=== PATIENT | male | born 1940 | race Caucasian/White ===

== ENCOUNTER 2016-11-03 07:27 | Inpatient (IN) | payer OTHER ==
--- NOTE | 2016-11-03 07:34 | EDPHY ---
H & P Time Seen by Provider: 11/03/16 07:31 HPI/ROS: Chief complaint. possible CVA HPI. 75-year-old male here by EMS with slurred speech and difficulty walking. Last seen normal at 11:00 p.m. which is about 8 and 0.5 hours prior to arrival. Patient was normal last night and awoke with difficulty speaking and difficulty walking secondary to both leg weakness and he says would not support his weight. He denies headache or visual change. No chest discomfort or trouble breathing. No recent fever or illness. No urinary symptoms. Chronic abdominal pain that is stable and has been present for more than 1 year. Patient is weak in both arms and legs as well as speech difficulty. ROS Constitutional. no fever/chills, no weakness Eyes. no problems with vision ENT. no sore throat, no nasal drainage Cardiovascular. no chest pain Respiratory. no shortness of breath, no cough Abdominal. no abdominal pain, no nausea/vomiting, no diarrhea . no problems urinating MS. no calf pain/swelling, no neck/back pain, no joint pain Skin. no rash Lymph. no swollen glands Neuro. No headache. Slurred speech. Unable to stand or walk secondary to both leg weakness Past Medical/Surgical History: Past medical history is significant for insulin-dependent diabetes, IBS, small- bowel obstruction, chronic spine problems, hypertension, depression, CPAP at night, heart stents, coronary artery disease, [place] Social History: , nonsmoker, no alcohol Smoking Status: Never smoked Physical Exam: General Appearance: Alert well-developed male moderate distress vital signs are stable Eyes: Pupils equal and round no pallor or injection. ENT, Mouth: Mucous membranes are moist. Respiratory: There are no retractions, lungs are clear to auscultation. Cardiovascular: Regular rate and rhythm. Gastrointestinal: Abdomen is soft and nontender, no masses, bowel sounds normal. Neurological: Awake and alert, sensory and motor exams grossly normal. Speech is somewhat garbled. Cranial nerves however appear to be normal without evidence of facial droop. There is no pronator drift. [id number] is ataxic and abnormal with both index fingers. [id number]-ej-[id number] and raising feet off the bed is abnormal with both legs. Skin: Warm and dry, no rashes. Musculoskeletal: Neck is supple nontender. Extremities symmetrical, full range of motion. Psychiatric: Patient is oriented X 3, there is no agitation. Constitutional: Initial Vital Signs Temperature (C) 35.8 C L 11/03/16 07:38 Heart Rate 76 11/03/16 07:38 Respiratory Rate 14 11/03/16 07:38 Blood Pressure 114/74 11/03/16 07:38 O2 Sat (%) 90 L 11/03/16 07:38 O2 Delivery Mode Room Air O2 (L/minute) 2 Allergies/Adverse Reactions: No Known Allergies Allergy (Verified 11/03/16 07:42) Home Medications: Medication Instructions Recorded Aspirin [Aspirin 81mg (*)] 81 mg PO DAILY 09/20/15 Carvedilol [Coreg (*)] 12.5 mg PO BID 09/20/15 Empagliflozin [Jardiance] 25 mg PO DAILY 09/20/15 FLUoxetine [Prozac 20 MG (*)] 60 mg PO DAILY 09/20/15 Lisinopril [Zestril 2.5 mg (*)] 2.5 mg PO DAILY 09/20/15 Multivitamins [Multivitamin (*)] 1 each PO DAILY 09/20/15 [place]-3 Fatty Acids [Fish Oil 1000 1,000 mg PO DAILY 09/20/15 mg (*)] Rosuvastatin Calcium [Crestor 40mg 40 mg PO HS 09/20/15 (*)] Zolpidem Tartrate [Ambien 5MG (*)] 10 mg PO HS 09/20/15 Lactobacil 2-S.thermo-Bifido 1 1 each PO DAILY #30 packet 09/25/15 [VSL#3 DS PACKET] buPROPion SR [Wellbutrin 100mg SR 100 mg PO DAILY 01/25/16 (*)] Ibuprofen [Motrin (*)] 600 mg PO Q6HRS PRN #0 tab 01/27/16 Insulin Glargine [Lantus 100 60 units SC DAILY #0 ml 01/27/16 UNITS/ML (*)] Pantoprazole Sodium [Protonix 40mg 40 mg PO DAILY #30 tab 01/27/16 (*)] Promethazine HCl [Phenergan 25mg 25 mg PO Q6 PRN #30 tab 01/27/16 (*)] Crestor 11/03/16 HYOSCYAMINE SULFATE 11/03/16 Neurontin 11/03/16 [place] 5/325 (*) 11/03/16 Reglan 11/03/16 Medical Decision Making - Diagnostics EKG Interpretation: EKG interpreted by me shows normal sinus rhythm with normal interval. There is left axis deviation. QRS is otherwise normal there is no significant ST elevation or depression. There is no arrhythmia. The rate is 76 Imaging Results: Noncontrast head CT reviewed by me and discussed with Dr. Valderrama shows some atrophy but no evidence for hemorrhage One-view chest x-ray interpreted by me shows no evidence for pneumonia Procedures: IV normal saline, monitor. Aspirin given in the emergency department after normal head CT ED Course/Re-evaluation: I consulted and discussed the case with Dr. Mata at [facility] who recommends CT angiogram of head and neck. She agrees with no thrombolytics therapy I have consulted and discussed the case with Dr. Johnson, hospitalist, who agrees to the admission Re-evaluation at 8:45 a.m.. Patient's condition is unchanged. The patient, his , and I discussed imaging study and lab results and EKG findings so far. We discussed treatment plan including need for admission and further evaluation. They expressed understanding and agreement Differential Diagnosis: This is likely a CVA. There is no evidence for intracranial hemorrhage. He has a nonfocal exam. No evidence for sepsis. We will do CTA of head and neck looking for vertebral artery dissection or clot. - Data Points Laboratory Results: Laboratory Results 11/03/16 07:30 11/03/16 07:30 11/03/16 11/03/16 11/03/16 08:01 07:30 07:30 WBC RBC Hgb POC Hgb Hct POC Hct MCV MCH MCHC RDW Plt Count MPV Neut % (Auto) Lymph % (Auto) [place] % (Auto) Eos % (Auto) Baso % (Auto) Nucleat RBC Rel Count Absolute Neuts (auto) Absolute Lymphs (auto) Absolute Monos (auto) Absolute Eos (auto) Absolute Basos (auto) Absolute Nucleated RBC Immature Gran % Immature Gran # PT 14.1 SEC SEC (12.0-15.0) INR 1.10 (0.83-1.16) APTT 24.9 SEC SEC (23.0-38.0) VBG Lactic Acid 1.4 mmol/L mmol/L (0.7-2.1) POC Sodium Sodium 148 mEq/L H mEq/L (134-144) POC Potassium Potassium 3.9 mEq/L mEq/L (3.5-5.2) POC Chloride Chloride 107 mEq/L mEq/L (97-110) Carbon Dioxide 27 mEq/l mEq/l (22-31) Anion Gap 14 mEq/L mEq/L (8-16) POC BUN BUN 20 mg/dL mg/dL (7-23) Creatinine 1.5 mg/dL H mg/dL (0.7-1.3) POC Creatinine Estimated GFR 46 Glucose 116 mg/dL H mg/dL (70-100) POC Glucose Calcium 9.1 mg/dL mg/dL (8.5-10.4) Total Bilirubin 1.2 mg/dL mg/dL (0.1-1.4) Troponin I < 0.012 ng/mL ng/mL (0-0.034) NT-Pro-B Natriuret Pep 681 pg/mL H pg/mL (0-125) 11/03/16 11/03/16 07:30 07:25 WBC 10.23 10^3/uL H 10^3/uL (3.80-9.50) RBC 5.88 10^6/uL 10^6/uL (4.40-6.38) Hgb 17.8 g/dL H g/dL (13.7-17.5) POC Hgb 19.0 gm/dL H gm/dL (13.7-17.5) Hct 54.8 % H % (40.0-51.0) POC Hct 56 % H % (40-51) MCV 93.2 fL fL (81.5-99.8) MCH 30.3 pg pg (27.9-34.1) MCHC 32.5 g/dL g/dL (32.4-36.7) RDW 17.0 % H % (11.5-15.2) Plt Count 218 10^3/uL 10^3/uL (150-400) MPV 10.2 fL fL (8.7-11.7) Neut % (Auto) 73.9 % % (39.3-74.2) Lymph % (Auto) 13.8 % L % (15.0-45.0) [place] % (Auto) 9.4 % % (4.5-13.0) Eos % (Auto) 1.1 % % (0.6-7.6) Baso % (Auto) 0.7 % % (0.3-1.7) Nucleat RBC Rel Count 0.0 % % (0.0-0.2) Absolute Neuts (auto) 7.57 10^3/uL H 10^3/uL (1.70-6.50) Absolute Lymphs (auto) 1.41 10^3/uL 10^3/uL (1.00-3.00) Absolute Monos (auto) 0.96 10^3/uL H 10^3/uL (0.30-0.80) Absolute Eos (auto) 0.11 10^3/uL 10^3/uL (0.03-0.40) Absolute Basos (auto) 0.07 10^3/uL 10^3/uL (0.02-0.10) Absolute Nucleated RBC 0.00 10^3/uL 10^3/uL (0-0.01) Immature Gran % 1.1 % % (0.0-1.1) Immature Gran # 0.11 10^3/uL H 10^3/uL (0.00-0.10) PT INR APTT VBG Lactic Acid POC Sodium 146 mEq/L H mEq/L (134-144) Sodium POC Potassium 3.7 mEq/L mEq/L (3.3-5.0) Potassium POC Chloride 102 mEq/L mEq/L (97-110) Chloride Carbon Dioxide Anion Gap POC BUN 20 mg/dL mg/dL (7-23) BUN Creatinine POC Creatinine 1.7 mg/dL H mg/dL (0.7-1.3) Estimated GFR Glucose POC Glucose 118 mg/dL H mg/dL (70-100) Calcium Total Bilirubin Troponin I NT-Pro-B Natriuret Pep Medications Given: Discontinued Medications Aspirin (Aspirin) 324 mg PO EDNOW ONE Stop: 11/03/16 08:32 Last Admin: 11/03/16 08:40 Dose: 324 mg Point of Care Test Results: 11/03/16 07:25 POC Sodium 146 H POC Potassium 3.7 POC Chloride 102 POC BUN 20 POC Creatinine 1.7 H POC Glucose 118 H Departure - Departure Disposition: [facility] Inpatient Acute Clinical Impression: CVA (cerebral vascular accident) Qualifiers: CVA mechanism: unspecified Qualified Code(s): I63.9 - Cerebral infarction, unspecified Condition: Fair Referrals: Patient,NotPresent [Unknown] - As per Instructions
--- NOTE | 2016-11-03 07:39 | CPEKG ---
Heart Rate: 76 RR Interval: 789 P-R Interval: 176 QRSD Interval: 86 QT Interval: 420 QTC Interval: 473 P Trent[place]: 62 QRS [place]: 19 T Wave [place]: 69 EKG Severity - BORDERLINE ECG - EKG Impression: SINUS RHYTHM EKG Impression: BORDERLINE R WAVE PROGRESSION, ANTERIOR LEADS Electronically Signed By: Glenn Cook 03-Nov-2016 09:29:42
[2016-11-03 07:43] LABS: % IMMATURE GRANULYOCYTES 1.1 % (0.0-1.1); ABSOLUTE IMMATURE GRANULOCYTES 0.11 10^3/uL (0.00-0.10); ADD DIFF? NO; ADD MORPH? NO; ADD SCAN? NO; ATYPICAL LYMPHOCYTE FLAG 10 (0-99); FRAGMENT RBC FLAG 0 (0-99); HEMATOCRIT 54.8 % (40.0-51.0); HEMOGLOBIN 17.8 g/dL (13.7-17.5); LEFT SHIFT FLG 0 (0-99); LIPEMIA HEMOLYSIS FLAG 80 (0-99); MEAN CELL HEMOGLOBIN 30.3 pg (27.9-34.1); MEAN CELL HEMOGLOBIN CONCENTR. 32.5 g/dL (32.4-36.7); MEAN CELL VOLUME 93.2 fL (81.5-99.8); MEAN PLATELET VOLUME 10.2 fL (8.7-11.7); PLATELET CLUMPS FLAG 0 (0-99); PLATELET COUNT 218 10^3/uL (150-400); RED BLOOD CELL COUNT 5.88 10^6/uL (4.40-6.38)
[2016-11-03 07:48] LABS: INR 1.1 (0.83-1.16); PROTIME(PATIENT) 14.1 SEC (12.0-15.0)
[2016-11-03 07:49] LABS: APTT 24.9 SEC (23.0-38.0)
[2016-11-03 07:50] LABS: ANION GAP 14 mEq/L (8-16); BILIRUBIN,TOTAL 1.2 mg/dL (0.1-1.4); CALCIUM 9.1 mg/dL (8.5-10.4); CARBON DIOXIDE 27 mEq/l (22-31); CHLORIDE 107 mEq/L (97-110); CREATININE 1.5 mg/dL (0.7-1.3); GLOMERULAR FILTRATION RATE 46; GLUCOSE 116 mg/dL (70-100); POTASSIUM 3.9 mEq/L (3.5-5.2); SODIUM 148 mEq/L (134-144)
[2016-11-03 08:02] LABS: TROPONIN I < 0.012 ng/mL (0-0.034)
[2016-11-03] MEDS ORDERED: ASPIRIN 81 MG CHEWABLE TAB PO ONE (08:31)
[2016-11-03 09:05] LABS: COLOR YELLOW; LEUKOCYTE ESTERASE,URINE NEGATIVE (NEGATIVE); NITRITE,URINE NEGATIVE (NEGATIVE)
[2016-11-03 09:07] LABS: MUCUS TRACE /lpf (NONE-1+); RBC,URINE 50-182 /hpf (0-3)
[2016-11-03] MEDS ORDERED: IOPAMIDOL (ISOVUE 370) 100 ML BTL IV ONE (09:07)
[2016-11-03] MEDS ORDERED: HYDROCODONE/APAP 5/325 TAB PO PRN ×2 (09:49→10:27)
[2016-11-03] MEDS ORDERED: Empagliflozin [Jardiance] 25 MG PO SCH (10:30)
--- NOTE | 2016-11-03 10:31 | GCON ---
[f rep st] CONSULTATION NEUROLOGIC CONSULTATION REFERRING PHYSICIAN: Mary Kam NP HISTORY: The patient is a 75-year-old gentleman who I am asked to see in neurologic consultation re garding acute neurologic deficits of slurred speech and falling. History is obtained from the patie nt as well as review of the medical records and discussions with his . He said he went to bed a round 11 p.m. and awoke at 6 a.m. and got up and fell because his legs would not support him. He sp elida to his , and she said she got him the walker, but he tried to walk again and fell. She said she tested his arm strength and it seemed to be equal, and she did not notice any asymmetry to his facial movements. His speech has been slightly slurred. He came to the emergency department where he has been evaluated with a head CT that does not show anything specific. He subsequently had a co nsultation with [facility], and CT angiogram was obtained which does not show any large vess el stenoses and he is not felt to be a TPA candidate. Dr. Cook in the emergency department has b een following the patient and I have been asked to see him regarding clinical suspicion for ischemic stroke. He has had some documented ataxia of the right upper extremity. The patient says his spee ch is a little bit different and he is predominantly experiencing severe back pain right now and req uesting his pain medication which he is used to taking. 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 He normally does take a daily 81 mg of aspirin. The patient has a history of headache and nausea at times and depres kiran. Diabetes. Hypertension. Hyperlipidemia. FAMILY HISTORY: Noncontributory. SOCIAL HISTORY: No smoking. No alcohol. 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 His says he has not been very active. MEDICATIONS: Prior to admission, Bupropion, Ambien, Crestor, Phenergan, fish oil, Neurontin, [place], lisinopril, insulin, Prozac, Jardiance, Coreg, 81 mg of aspirin daily, although as mentioned was ho lding this in preparation for a spinal epidural next week. ALLERGIES: No known drug allergies. REVIEW OF SYSTEMS: 10-point review of systems completed and unremarkable. PHYSICAL EXAMINATION: VITAL SIGNS: Blood pressure 114/74, pulse of 76, respirations 14, temperatur e 35.8. GENERAL: He is well developed, no acute distress. EYES: Clear. NECK: Supple with no br uits or masses. CARDIAC: Regular rate and rhythm. No murmur. NEUROLOGIC: He is awake, but appea rs uncomfortable because he says his back is really hurting him in the low back region, but that is not a new problem. He is oriented and has a dysarthric speech, but it is fluent. Recent and remote memory are maintained. Concentration and attention are fairly well maintained given the circumstan lee, and he has a good general fund of knowledge. Pupils 2 mm and reactive. I cannot adequately vi ew the fundi. Visual joyner are full. Extraocular movements are intact, but some mild nystagmus on left and right lateral gaze. It is unsustained in the horizontal plane. Brief upward beating nyst agmus on up gaze. The right face has a mild weakness to it with a slight droop. Palate elevates sy mmetrically. Tongue protrudes midline. Hearing is preserved. Motor exam: Normal muscle bulk and tone, with essentially 5/5 strength, but some limitation in testing because of pain. There is a lit tle bit of ataxia in the right upper extremity on finger to nose. Sensation is preserved for temper ature and light touch. Reflexes 1+. DIAGNOSTIC STUDIES: As outlined above. LABORATORY STUDIES: Unremarkable CBC. The chemistry shows creatinine of 1.5. ProBNP of 681. Negat christiane troponin. Urinalysis: 50-180 red cells, 1-3 white cells. IMPRESSION: The patient is presenting with acute neurologic deficits upon awakening at 6 a.m. after going to bed at around 11 p.m., and has some mild right lower facial droop with dysarthria and atax ia in the right upper extremity. NIH stroke scale of 3. He is not a TPA candidate because of unkno wn onset of deficits. We do not find a large vessel source on the CT angiogram of the head and neck . He has multiple risk factors for small-vessel disease, and this seems as if it probably is a smal l vessel ischemic event either in the left basal ganglia region or in the right cerebellum. There a re not likely alternative diagnoses for this neurologic presentation. I believe we should obtain br ain MRI to make sure there is not a large area of ischemia in his posterior fossa because of risk of subsequent edema. This will help clarify if there is, in fact, stroke. We will put him back on as pirin and he already received aspirin in the emergency department. He will be admitted for ongoing rehabilitation and evaluation. For his back, he will go back on his oral [place] medication to try to control that since this is a chronic problem and clearly giving him distress. My partner will foll ow up tomorrow for further neurologic input. /[id number]/MODL
[2016-11-03] MEDS ORDERED: ONDANSETRON DISINTEGRATING 4 MG TAB PO PRN (11:44)
[2016-11-03] MEDS ORDERED: ACETAMINOPHEN 325 MG TAB PO PRN (11:44)
[2016-11-03] MEDS ORDERED: ONDANSETRON 4 MG/2 ML VIAL IVP PRN (11:44)
[2016-11-03] MEDS ORDERED: NS 1,000 ML IV SCH (11:45)
[2016-11-03] MEDS ORDERED: HYDROmorphONE/DILAUDID 1 MG/ML SYR IVP ONE (12:12)
--- NOTE | 2016-11-03 13:01 | GHP ---
[f rep st] HISTORY AND PHYSICAL DATE OF ADMISSION: 11/03/2016 CHIEF COMPLAINT: Some dysarthria with balance issues. HISTORY OF PRESENT ILLNESS: The patient is a 75-year-old gentleman with a history of ischemic cardiomyopathy, diabetes, hypertension, who presented to the emergency room with difficulty walking and slurred-type speech. His saw him last night at 10 p.m. At that time, his speech was fine and he was able to ambulate. He has chronic back problems and has difficulty with balance. He woke up this morning around 6 a.m. and felt his legs would not support him. He told his that he was concerned he had a stroke. She quickly looked at him and did not note any facial droop and was able to talk, but she did note that he was unable to stand. Subsequently, they called 911, and he was transferred into the emergency room. A consultation was obtained with [facility]. Their recommendation was to get a CT angiogram of the head and neck, which did not show any large vessel stenosis. Due to the timeframe, he was not a tPA candidate. Per the patient, his speech is a little bit different than his baseline. He commented that he has a saliva problem. On the 1st half of the day, his mouth is extremely dry. On the 2nd half of the day, he produces extra saliva. He denies any chest pain. He says that he is always short of breath secondary to his underlying DISH syndrome. He also has issues with constipation versus loose stools with an underlying diagnosis of irritable bowel syndrome. He has been recently going to the gym to do strengthening exercises for his balance issues. During my interview, his main complaint is low back pain. PAST MEDICAL HISTORY: 1. Episode of atypical chest pain thought to be pericarditis in December 2015. 2. Coronary artery disease, status post placement of LAD and diagonal in July 2014. 3. Ischemic cardiomyopathy. Ejection fraction 40% by echocardiogram in July 2014. 4. Diabetes mellitus. Recent A1c by his primary care provider was 6.1. 5. Obstructive sleep apnea on CPAP. 6. DISH syndrome. 7. Hypertension. 8. Depression and anxiety. 9. Irritable bowel syndrome. PAST SURGICAL HISTORY: 1. Appendectomy. 2. Cholecystectomy. 3. Hernia repair. 4. Coronary artery stenting in July 2014. 5. Bilateral quadriceps repair. FAMILY HISTORY: Reviewed and noncontributory. SOCIAL HISTORY: He has been to his for 53 years. 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 He has never smoked. He does not have alcohol use. He and his had 2 children. He lost a daughter 3 years ago to metastatic brain cancer. ALLERGIES: No known allergies. HOME MEDICATIONS: Lisinopril 10 mg daily, [place] 1 tab q.6 hours p.r.n., Levsin 0.125 mg p.o. q.6 hours p.r.n., Wellbutrin 300 mg daily, gabapentin 300 mg p.o. b.i.d., Jardiance 25 mg daily, Coreg 12.5 mg p.o. b.i.d., aspirin 325 mg daily, Lantus 45 units subcu daily, Prozac 60 mg daily, Ambien 10 mg p.o. q.h.s., Crestor 40 mg daily, Phenergan 25 mg p.o. q.6 hours p.r.n., fish oil 1000 mg daily, multivitamin 1 tab daily. REVIEW OF SYSTEMS: A 10-point review of system was performed, was negative except as noted in the HPI. PHYSICAL EXAM: GENERAL: The patient is a 75-year-old male who appears to be in fair health. VITAL SIGNS: Blood pressure is 143/82, heart rate is 73, respiratory rate is 18, O2 sats on 2 L are 94%, temperature is 36.8 Celsius. EYES: Pupils are equal and reactive. He is wearing glasses. EOMs are intact. No conjunctival injection noted. ENT: Normal ears. Hearing intact. Oral airway is dry. Tongue is dry. NECK: Trachea is midline. CARDIOVASCULAR: He is in a regular rate and rhythm. No murmurs, rubs, gallops noted. CHEST/LUNGS : Normal respiratory effort without wheezing, rales or rhonchi. ABDOMEN: Soft , nontender, round. SKIN: No rashes, ulcer. Warm, dry, intact. MUSCULOSKELETAL: He is able to get out of bed for me with some assist. He has a wide-standing gait. He has equal upper lower extremity strength. PSYCHIATRIC : He is alert and oriented. Normal mood, affect. Normal judgment and insight. Normal memory. NEUROLOGIC: He is oriented to person, place, and time and situation. He has dysarthric speech but is fluent. His tongue is midline. He has no pronator drift. His face is symmetrical. DATA REVIEWED: A CBC shows a white blood cell count of 10.3, hemoglobin 17.8, hematocrit of 15.4, platelet count of 218. Coags show a pro time of 14.1, INR of 1.1, PTT 24.9. Venous lactic acid is 1.4. Chemistry: Sodium is 148, potassium 3.9, BUN of 20, creatinine of 1.5, glucose of 116. BNP of 6.81. Troponin is less than 0.012. A urinalysis shows 50-182 red blood cells, he has 2+ protein and 3+ glucose in his urine. I reviewed his care with Dr. Glenn Cook, emergency room physician. I also reviewed his care with Dr. Freddie Kaba with Neurology. ASSESSMENT/PLAN: 1. Possible stroke with associated acute neurologic deficits vs a TIA. Will do a stroke workup. MRI is pending. Will check a lipid panel. He had a hemoglobin A1c recently done that was 6.1. Will have Speech Therapy, Physical Therapy and Occupational Therapy further evaluate him. Echocardiogram has been ordered. 2. Polycythemia. This could be due to his chronic oxygen use or dehydration. Will gently hydrate and recheck his labs in the morning. 3. Renal insufficiency. Will hold his JONATHAN inhibitor and hydrate overnight. Recheck labs in the morning. 4. 4.5 pulmonary nodule noted on the CT. He needs to get a CT followup in 6 months. 5. Chronic back pain. [place] has been resumed p.r.n. Morphine p.r.n. 6. History of coronary artery disease and ischemic cardiomyopathy. Echocardiogram will be performed. 7. Obstructive sleep apnea. To use his home CPAP if available, otherwise nocturnal oxygen will be provided. 8. Diabetes mellitus type 2. Glucoses are overall stable. He just had an A1c done. Will continue his Lantus and have glucoses checked before meals and at bedtime. 9. DVT prophylaxis. Will place SCDs. In addition, will order heparin t.i.d. because he is at a high risk. 10. Code status. Do not resuscitate. 11. Length of stay. He will likely require less than a 2-midnight stay. This can be further evaluated if needed. /[id number]/MODL MTDD
[2016-11-03] MEDS: GABAPENTIN 300 MG CAP PO SCH ×2 (13:25→22:01)
[2016-11-03] MEDS: buPROPion XL 150 MG TAB PO SCH (13:25)
[2016-11-03] MEDS: CARVEDILOL 25 MG TAB PO SCH ×2 (13:25→22:02)
[2016-11-03] MEDS: FLUoxetine 20 MG CAP PO SCH (13:25)
[2016-11-03] MEDS: LISINOPRIL 10 MG TAB PO SCH (13:25)
[2016-11-03] MEDS: INSULIN GLARGINE 100 UNITS/ML SYRINGE SC SCH (13:28)
[2016-11-03] MEDS: HEPARIN 5,000 UNIT/0.5 ML SYR SC SCH ×2 (14:41→22:05)
[2016-11-03] MEDS: HYDROCODONE/APAP 5/325 TAB PO PRN (17:38)
[2016-11-03] MEDS ORDERED: D50W 25 GM/50 ML SYR IVP PRN (19:41)
[2016-11-03] MEDS: ROSUVASTATIN CALCIUM 40 MG TAB PO SCH (22:01)
[2016-11-03] MEDS: ZOLPIDEM TARTRATE 5 MG TAB PO SCH (22:02)
[2016-11-04 05:12] LABS: % IMMATURE GRANULYOCYTES 0.5 % (0.0-1.1); ABSOLUTE IMMATURE GRANULOCYTES 0.06 10^3/uL (0.00-0.10); ADD DIFF? NO; ADD MORPH? NO; ADD SCAN? NO; ATYPICAL LYMPHOCYTE FLAG 0 (0-99); FRAGMENT RBC FLAG 0 (0-99); HEMATOCRIT 47.6 % (40.0-51.0); HEMOGLOBIN 15.8 g/dL (13.7-17.5); LEFT SHIFT FLG 0 (0-99); LIPEMIA HEMOLYSIS FLAG 80 (0-99); MEAN CELL HEMOGLOBIN 30.9 pg (27.9-34.1); MEAN CELL HEMOGLOBIN CONCENTR. 33.2 g/dL (32.4-36.7); MEAN CELL VOLUME 93.2 fL (81.5-99.8); MEAN PLATELET VOLUME 10.1 fL (8.7-11.7); PLATELET CLUMPS FLAG 10 (0-99); PLATELET COUNT 155 10^3/uL (150-400); RED BLOOD CELL COUNT 5.11 10^6/uL (4.40-6.38); RED CELL DISTRIBUTION WIDTH 16.5 % (11.5-15.2)
[2016-11-04 05:17] LABS: ANION GAP 9 mEq/L (8-16); CALCIUM 8.2 mg/dL (8.5-10.4); CARBON DIOXIDE 22 mEq/l (22-31); CHLORIDE 110 mEq/L (97-110); CHOLESTEROL 110 mg/dL (140-220); CHOLESTEROL/HDL RATIO 2.62 RATIO (1.00-4.97); CREATININE 1.1 mg/dL (0.7-1.3); GLOMERULAR FILTRATION RATE > 60; GLUCOSE 97 mg/dL (70-100); HIGH DENSITY LIPOPROTEIN 42 mg/dL (40-65); LDL/HDL RATIO 0.98 RATIO (1.00-3.64); LOW DENSITY LIPOPROTEIN 41 mg/dL (80-100); NON-HIGH DENSITY LIPOPROTEIN 68 mg/dL (90-129); POTASSIUM 3.7 mEq/L (3.5-5.2); SODIUM 141 mEq/L (134-144); TRIGLYCERIDE 136 mg/dL (40-150); VERY LOW DENSITY LIPOPROTEINS 27 mg/dL (8-25)
[2016-11-04] MEDS: HEPARIN 5,000 UNIT/0.5 ML SYR SC SCH ×3 (05:32→19:40)
--- NOTE | 2016-11-04 09:25 | HOSPPROG ---
Hospitalist Progress Note Assessment/Plan: #Slurred speech/facial droop: now resolved MRI unrevealing. Query if due to hypoglycemia. He reports several low sugars at home <60 in past few weeks. -cont ASA. Lipids at goal, no arrhythmia on EKG. BP at goal #Hypoglycemia: -A1c 6.1. Has had too many lows at home and this morning. Stop glargine, will calculate SSI needs #Chronic back pain: injection planned next week outpatient #Compensated CDM: BB, statin #CAD: BB, statin, ASA (will only take 81mg with upcoming spine injection}) #Deconditioning: PT recs #Constipation #HTN: BP controlled on home meds #SRINIVASA: CPAP #Anxiety/depression: home meds #Diabetic diet #DVT ppx: #Disp: warrants inpatient admission given weakness at risk for falls and subsequent injuries. PT/OT, awaiting SNF placement # Subjective: shakey this morning with low sugar Objective: Vital Signs Temp Pulse Resp BP Pulse Ox 36.7 C 75 16 132/72 H 92 11/04/16 07:56 11/04/16 07:56 11/04/16 07:56 11/04/16 07:56 11/04/16 07:56 Laboratory Results 11/04/16 04:44 11/04/16 04:44 11/03/16 11/04/16 11/05/16 05:59 05:59 05:59 Intake Total 240 Balance 240 PT 14.1 SEC (12.0-15.0) 11/03/16 07:30 INR 1.10 (0.83-1.16) 11/03/16 07:30 - Physical Exam Constitutional: other (anxious) Eyes: PERRL Ears, Nose, Mouth, Throat: moist mucous membranes Cardiovascular: regular rate and rhythym, no murmur, rub, or gallop Respiratory: no respiratory distress, no rales or rhonchi Gastrointestinal: normoactive bowel sounds, soft, non-tender abdomen Genitourinary: no bladder fullness Skin: warm Musculoskeletal: generalized weakness, other (ambulates with walker) Neurologic: AAOx3, CN II-XII Intact Psychiatric: interacting appropriately, anxious ICD10 Worksheet Patient Problems: Problems Problem Status Onset CVA (cerebral vascular accident) Acute Chest pain Acute STEMI (ST elevation myocardial infarction) Acute Shortness of breath Acute
[2016-11-04] MEDS: INSULIN LISPRO 100 UNIT/ML SC SCH ×3 (09:29→17:20)
[2016-11-04] MEDS: OMEGA-3 FATTY ACIDS 1,000 MG CAP PO SCH (09:37)
[2016-11-04] MEDS: buPROPion XL 150 MG TAB PO SCH (09:37)
[2016-11-04] MEDS: ASPIRIN 325 MG TAB PO SCH (09:38)
[2016-11-04] MEDS: GABAPENTIN 300 MG CAP PO SCH ×2 (09:38→19:39)
[2016-11-04] MEDS: FLUoxetine 20 MG CAP PO SCH (09:38)
[2016-11-04] MEDS: MULTIVITAMINS 1 EACH TAB PO SCH (09:39)
[2016-11-04] MEDS: CARVEDILOL 25 MG TAB PO SCH ×2 (09:40→19:39)
[2016-11-04] MEDS: Empagliflozin [Jardiance] 25 MG PO SCH (09:50)
--- NOTE | 2016-11-04 09:59 | ECHO ---
[id number] + + [address] : : [place] [address] : : [phone] + + Adult Echocardiographic Report + ---+ :Name: TD SIMMONS WStudy Date: 11/04/2016 08:59 AM : : Hospital Admission Number: [id number] Location: 361: :: 1940 Gender: Male Height: 70 in : :Age: 75 yrs Race: WH Weight: 196 lb : :Reason For Study: Concern for stroke : : BSA: 2.1 meters2 : + ---+ MMode/2D Measurements \T\ Calculations IVSd: 0.90 cm LVIDd: 5.2 cm EDV(Teich): Ao root diam: LVPWd: 1.0 cm 128.6 ml 4.1 cm LA dimension: 3.9 cm LVLd ap4: 9.2 cm SV(MOD-sp4): EDV(MOD-sp4): 56.0 ml 76.0 ml LVLs ap4: 7.3 cm ESV(MOD-sp4): 20.0 ml EF(MOD-sp4): 73.7 % Normal Measurement Values: + + :LVIDd (3.5-5.7cm) IVSd (0.6-1.1cm) LVPWd (0.6-1.1cm) Aortic Root (2.0-3.7cm)Left Atrium (1.5-4.0cm): :LV Vol(d) (76-115ml) LV Vol(s) (29-48ml) Ejec Fraction (50-65%)PV Adonay (0.6- 1.2m/s) TV Adonay (0.4-1.0m/s) : :MV E Adonay (0.8-1.0m/s)MV A [place]onay (0.3-1.0m/s)LVOT Adonay (0.7-1.2m/s) Asc Ao Adonay ( 0.9-1.8m/s) : + + Doppler Measurements \T\ Calculations MV E max adonay: 55.8 cm/sec Ao V2 max: 101.8 cm/sec MV A max adonay: 73.5 cm/sec Ao max P.1 mmHg MV E/A: 0.76 Left Ventricle The left ventricle is normal in size. There is mild concentric left ventricular hypertrophy. Left ventricular systolic function is normal. Ejection Fraction = 60-65%. No regional wall motion abnormalities noted. Right Ventricle The right ventricle is normal in size and function. Atria The left atrial size is normal. Right atrium not well visualized. The interatrial septum is intact with no evidence for an atrial septal defect. Mitral Valve Thickened mitral leaflets with redundant chordae. There is no evidence of mitral valve prolapse. There is no mitral valve stenosis. There is trace mitral regurgitation. Tricuspid Valve Normal tricuspid valve. There is trace tricuspid regurgitation. Aortic Valve The aortic valve opens well. Mildly sclerotic AV. There is no aortic stenosis. Trace aortic regurgitation. Pulmonic Valve The pulmonic valve is not well visualized. There is no pulmonic valvular regurgitation. Great Vessels The aortic root is normal size. Pericardium/Pleural Trivial anterior pericardial effusion. Conclusion A complete two-dimensional transthoracic echocardiogram was performed (2D, M-mode, Doppler and color flow Doppler). The study was technically difficult. There is no obvious source of embolus identified. If one is highly clinically suspected, then transesophageal echocardiography should be considered. Left ventricular systolic function is normal. There is mild concentric left ventricular hypertrophy. Ejection Fraction = 60-65%. Thickened mitral leaflets with redundant chordae. There is trace mitral regurgitation. There is trace tricuspid regurgitation. Mildly sclerotic AV. Trace aortic regurgitation. Trivial anterior pericardial effusion Final Reading Physician: Jett Davenport signed on 11/04/2016 09:58 AM Ordering Physician: Mary Kam Performed By: Shandra Rodriguez, FLAKITO
--- NOTE | 2016-11-04 10:12 | NEUROPROG ---
Assessment: 1. Generalized weakness 2. Diabetes 35 total minutes floor time; over 50% counseling regarding the patient's medical history, imaging and interviewing the patient again. Essentially, he woke up around 6:00 a.m. 2 days ago feeling a generalized sense of weakness and shakiness. Interestingly, he had similar symptoms early this morning and a stat blood sugar was drawn. it Was 66. In addition, he took his narcotic pain medicine the night before. Overall, my impression is that he has had some symptoms of metabolic/toxic encephalopathy. I am reassured by his negative MRI in regards to acute stroke. Angiography of the head and neck also was unremarkable. Recommendations: 1. He will likely need inpatient rehabilitation 2. He can decrease his dose of aspirin to 81 mg daily in anticipation of a epidural steroid injection, after this procedure, he can go back to 325 mg daily of aspirin once the pain physician gives clearance 3. Outpatient follow-up with Endocrinology to review his blood sugars 4. I have advised him to consider discontinuing opiate pain medication is that may have exacerbated the symptoms. 5. Outpatient follow-up with Dr. Kaba in 4-6 weeks No further recommendations. We will continue to follow him as needed. Please do not hesitate to call for any changes in his neurologic status. Objective: Vital Signs Temp Pulse Resp BP Pulse Ox 36.7 C 80 16 132/72 H 92 11/04/16 07:56 11/04/16 09:40 11/04/16 07:56 11/04/16 09:40 11/04/16 07:56 Laboratory Results 11/04/16 04:44 11/04/16 04:44 11/03/16 11/04/16 11/05/16 05:59 05:59 05:59 Intake Total 240 Balance 240 PT 14.1 SEC (12.0-15.0) 11/03/16 07:30 INR 1.10 (0.83-1.16) 11/03/16 07:30 Allergies/Adverse Reactions: No Known Allergies Allergy (Verified 11/03/16 07:42)
[2016-11-04] MEDS: INSULIN GLARGINE 100 UNITS/ML SYRINGE SC SCH (10:30)
[2016-11-04 10:55] LABS: HEMOGLOBIN A1C 6.1 % (4.0-6.0)
[2016-11-04] MEDS ORDERED: D10W 250 ML PRN HYPOGLYCEMIA IV (12:00)
[2016-11-04] MEDS ORDERED: POLYETHYLENE GLYCOL 3350 17 GM PKT PO PRN (12:07)
[2016-11-04] MEDS ORDERED: BISACODYL 10 MG SUPP PR PRN (12:07)
[2016-11-04] MEDS ORDERED: LACTULOSE 20 GM/30 ML UDCUP PO PRN (12:07)
[2016-11-04] MEDS: MAGNESIUM HYDROXIDE 30 ML UDCUP PO PRN (13:40)
[2016-11-04] MEDS: SENNOSIDES/DOCUSATE SODIUM TAB PO SCH (19:38)
[2016-11-04] MEDS: ROSUVASTATIN CALCIUM 40 MG TAB PO SCH (19:39)
[2016-11-04] MEDS: ZOLPIDEM TARTRATE 5 MG TAB PO SCH ×2 (19:40→21:59)
[2016-11-05] MEDS: HYDROCODONE/APAP 5/325 TAB PO PRN ×5 (02:11→21:16)
[2016-11-05 05:27] LABS: HEMATOCRIT 48.2 % (40.0-51.0); HEMOGLOBIN 15.7 g/dL (13.7-17.5); MEAN CELL HEMOGLOBIN 30.5 pg (27.9-34.1); MEAN CELL HEMOGLOBIN CONCENTR. 32.6 g/dL (32.4-36.7); MEAN CELL VOLUME 93.8 fL (81.5-99.8); RED BLOOD CELL COUNT 5.14 10^6/uL (4.40-6.38); RED CELL DISTRIBUTION WIDTH 16.2 % (11.5-15.2)
[2016-11-05] MEDS: buPROPion XL 150 MG TAB PO SCH (08:42)
[2016-11-05] MEDS: GABAPENTIN 300 MG CAP PO SCH ×2 (08:43→20:01)
[2016-11-05] MEDS: OMEGA-3 FATTY ACIDS 1,000 MG CAP PO SCH (08:43)
[2016-11-05] MEDS: FLUoxetine 20 MG CAP PO SCH (08:43)
[2016-11-05] MEDS: MULTIVITAMINS 1 EACH TAB PO SCH (08:43)
[2016-11-05] MEDS: ASPIRIN 325 MG TAB PO SCH (08:43)
[2016-11-05] MEDS: CARVEDILOL 25 MG TAB PO SCH ×2 (08:44→20:04)
[2016-11-05] MEDS: HEPARIN 5,000 UNIT/0.5 ML SYR SC SCH ×2 (08:49→14:39)
[2016-11-05] MEDS: Empagliflozin [Jardiance] 25 MG PO SCH (09:38)
[2016-11-05] MEDS: INSULIN LISPRO 100 UNIT/ML SC SCH ×3 (09:39→17:51)
[2016-11-05] MEDS: SENNOSIDES/DOCUSATE SODIUM TAB PO SCH ×2 (09:39→21:14)
--- NOTE | 2016-11-05 15:03 | HOSPPROG ---
Hospitalist Progress Note Assessment/Plan: #Slurred speech/facial droop: now resolved MRI unrevealing. Query if due to hypoglycemia. He reports several low sugars at home <60 in past few weeks. -cont ASA. Lipids at goal, no arrhythmia on EKG. BP at goal -pt refusing ASA for steroid injection this week, rec 325mg after #Hypoglycemia: -A1c 6.1. Has had too many lows at home and this morning. Stop glargine, will calculate SSI needs #Chronic back pain: injection planned next week outpatient #Compensated CDM: BB, statin #CAD: BB, statin, ASA (will only take 81mg with upcoming spine injection}) #Deconditioning: PT recs #Constipation #HTN: BP controlled on home meds #SRINIVASA: CPAP #Anxiety/depression: home meds #Diabetic diet #DVT ppx: SCDs, refusing lovenox #Disp: Plan to DC tomorrow # Subjective: had BM, "feel unsteady" Objective: Vital Signs Temp Pulse Resp BP Pulse Ox 36.7 C 64 18 119/70 90 L 11/05/16 11:54 11/05/16 11:54 11/05/16 11:54 11/05/16 11:54 11/05/16 11:54 Laboratory Results 11/05/16 04:47 11/04/16 11/05/16 11/06/16 05:59 05:59 05:59 Intake Total 500 400 Balance 500 400 PT 14.1 SEC (12.0-15.0) 11/03/16 07:30 INR 1.10 (0.83-1.16) 11/03/16 07:30 - Physical Exam Constitutional: no apparent distress Eyes: PERRL Ears, Nose, Mouth, Throat: moist mucous membranes Cardiovascular: regular rate and rhythym, no murmur, rub, or gallop Respiratory: no respiratory distress Gastrointestinal: normoactive bowel sounds, soft, non-tender abdomen Genitourinary: no bladder fullness Skin: warm Musculoskeletal: other (using walker, mildy unstable) Neurologic: AAOx3, CN II-XII Intact Psychiatric: anxious ICD10 Worksheet Patient Problems: Problems Problem Status Onset CVA (cerebral vascular accident) Acute Chest pain Acute STEMI (ST elevation myocardial infarction) Acute Shortness of breath Acute
[2016-11-05] MEDS: ROSUVASTATIN CALCIUM 40 MG TAB PO SCH (20:01)
[2016-11-05] MEDS: HYOSCYAMINE SULFATE 0.125 MG TAB PO PRN (21:30)
[2016-11-05] MEDS: ZOLPIDEM TARTRATE 5 MG TAB PO SCH (21:44)
[2016-11-06 06:16] LABS: ANION GAP 9 mEq/L (8-16); CALCIUM 8.9 mg/dL (8.5-10.4); CARBON DIOXIDE 26 mEq/l (22-31); CHLORIDE 109 mEq/L (97-110); CREATININE 1.1 mg/dL (0.7-1.3); GLOMERULAR FILTRATION RATE > 60; GLUCOSE 80 mg/dL (70-100); POTASSIUM 4.5 mEq/L (3.5-5.2); SODIUM 144 mEq/L (134-144)
[2016-11-06] MEDS: HYDROCODONE/APAP 5/325 TAB PO PRN ×4 (06:34→22:52)
[2016-11-06] MEDS: buPROPion XL 150 MG TAB PO SCH (08:43)
[2016-11-06] MEDS: MULTIVITAMINS 1 EACH TAB PO SCH (08:44)
[2016-11-06] MEDS: FLUoxetine 20 MG CAP PO SCH (08:44)
[2016-11-06] MEDS: GABAPENTIN 300 MG CAP PO SCH ×2 (08:44→20:16)
[2016-11-06] MEDS: Empagliflozin [Jardiance] 25 MG PO SCH (08:45)
[2016-11-06] MEDS: CARVEDILOL 25 MG TAB PO SCH ×2 (08:46→20:15)
[2016-11-06] MEDS: INSULIN LISPRO 100 UNIT/ML SC SCH ×3 (08:47→18:33)
[2016-11-06] MEDS: SENNOSIDES/DOCUSATE SODIUM TAB PO SCH ×2 (08:48→20:17)
--- NOTE | 2016-11-06 09:54 | HOSPPROG ---
Hospitalist Progress Note Assessment/Plan: #Slurred speech/facial droop: now resolved MRI unrevealing. Query if due to hypoglycemia. He reports several low sugars at home <60 in past few weeks. -cont ASA. Lipids at goal, no arrhythmia on EKG. BP at goal -pt refusing ASA for steroid injection this week, rec 325mg after #Tachycardia: pain may contribute. Stat EKG NSR. Trial small fluid bolus. No increase in oxygen, SCDs in place. #Hypoglycemia: resolved. Stopped glargine. Resume only Jardiance -A1c 6.1. #Chronic back pain: injection planned next week outpatient #Compensated CDM: BB, statin #CAD: BB, statin, ASA (will only take 81mg with upcoming spine injection) #Deconditioning: PT recs #Constipation: resolved #HTN: resume Lisinopril #SRINIVASA: CPAP #Anxiety/depression: home meds #Diabetic diet #DVT ppx: SCDs, refusing lovenox #Disp: DC to SNF tomorrow # Subjective: no CP or SOB. [place] nauseated this morning Objective: Vital Signs Temp Pulse Resp BP Pulse Ox 36.6 C 61 14 159/78 H 90 L 11/06/16 07:40 11/06/16 07:40 11/06/16 07:40 11/06/16 07:40 11/06/16 07:40 Laboratory Results 11/05/16 04:47 11/06/16 05:32 11/05/16 11/06/16 11/07/16 05:59 05:59 05:59 Intake Total 500 700 Balance 500 700 PT 14.1 SEC (12.0-15.0) 11/03/16 07:30 INR 1.10 (0.83-1.16) 11/03/16 07:30 - Physical Exam Constitutional: no apparent distress Eyes: PERRL Ears, Nose, Mouth, Throat: moist mucous membranes, hearing normal Cardiovascular: regular rate and rhythym Respiratory: no respiratory distress, no rales or rhonchi Gastrointestinal: normoactive bowel sounds, soft, non-tender abdomen Genitourinary: no bladder fullness Skin: warm Musculoskeletal: full muscle strength Neurologic: AAOx3, CN II-XII Intact Psychiatric: not anxious ICD10 Worksheet Patient Problems: Problems Problem Status Onset CVA (cerebral vascular accident) Acute Chest pain Acute STEMI (ST elevation myocardial infarction) Acute Shortness of breath Acute
[2016-11-06] MEDS: OMEGA-3 FATTY ACIDS 1,000 MG CAP PO SCH (10:26)
[2016-11-06] MEDS ORDERED: NS 500 ML IV ONE (12:15)
--- NOTE | 2016-11-06 12:22 | CPEKG ---
Heart Rate: 70 RR Interval: 857 P-R Interval: 180 QRSD Interval: 94 QT Interval: 444 QTC Interval: 480 P [place]: 43 QRS [place]: -18 T Wave [place]: 41 EKG Severity - BORDERLINE ECG - EKG Impression: SINUS RHYTHM EKG Impression: BORDERLINE LEFT AXIS DEVIATION EKG Impression: POOR R WAVE PROGRESSION EKG Impression: BORDERLINE PROLONGED QT INTERVAL EKG Impression: No significant change from November 03, 2016 EKG Impression: Some artifact Electronically Signed By: Glenn Booth 06-Nov-2016 17:07:37
[2016-11-06] MEDS ORDERED: LISINOPRIL 10 MG TAB ONE (14:37)
[2016-11-06] MEDS: LISINOPRIL 10 MG TAB PO SCH ×4 (14:40→14:57)
[2016-11-06] MEDS: HYOSCYAMINE SULFATE 0.125 MG TAB PO PRN ×2 (16:10→21:54)
[2016-11-06] MEDS: ROSUVASTATIN CALCIUM 40 MG TAB PO SCH (20:17)
[2016-11-06] MEDS: ZOLPIDEM TARTRATE 5 MG TAB PO SCH (21:53)
[2016-11-07] MEDS: HYOSCYAMINE SULFATE 0.125 MG TAB PO PRN (05:16)
[2016-11-07 07:39] VITALS: BP 159/82; PULSE 74; RESP 15; TEMP 98.2; O2SAT 90
[2016-11-07] MEDS: INSULIN LISPRO 100 UNIT/ML SC SCH (07:54)
[2016-11-07] MEDS: buPROPion XL 150 MG TAB PO SCH (08:04)
[2016-11-07] MEDS: HYDROCODONE/APAP 5/325 TAB PO PRN (08:04)
[2016-11-07] MEDS: MULTIVITAMINS 1 EACH TAB PO SCH (08:05)
[2016-11-07] MEDS: OMEGA-3 FATTY ACIDS 1,000 MG CAP PO SCH (08:05)
[2016-11-07] MEDS: FLUoxetine 20 MG CAP PO SCH (08:05)
[2016-11-07] MEDS: CARVEDILOL 25 MG TAB PO SCH (08:05)
[2016-11-07] MEDS: GABAPENTIN 300 MG CAP PO SCH (08:05)
[2016-11-07] MEDS: LISINOPRIL 10 MG TAB PO SCH (08:05)
[2016-11-07] MEDS: Empagliflozin [Jardiance] 25 MG PO SCH (08:06)
[2016-11-07] MEDS: SENNOSIDES/DOCUSATE SODIUM TAB PO SCH (08:06)
[2016-11-07] MEDS: MAGNESIUM HYDROXIDE 30 ML UDCUP PO PRN (10:13)
--- NOTE | 2016-11-07 11:29 | PDIAF ---
- Diagnosis Diagnosis: weakmess Code Status: Do Not Resuscitate - Medication Management Discharge Medications: Medications to Continue on Transfer Carvedilol [Coreg (*)] 12.5 mg PO BID 09/20/15 [Last Taken 11/02/16 21:00] Empagliflozin [Jardiance] 25 mg PO DAILY 09/20/15 [Last Taken 11/02/16] FLUoxetine [Prozac 20 MG (*)] 60 mg PO DAILY 09/20/15 [Last Taken 11/02/16] Multivitamins [Multivitamin (*)] 1 each PO DAILY 09/20/15 [Last Taken 11/02/16] [place]-3 Fatty Acids [Fish Oil 1000 mg (*)] 1,000 mg PO DAILY 09/20/15 [Last Taken 11/02/16] Rosuvastatin Calcium [Crestor 40mg (*)] 40 mg PO HS 09/20/15 [Last Taken ] Zolpidem Tartrate [Ambien 5MG (*)] 10 mg PO HS 09/20/15 [Last Taken 11/02/16] Promethazine HCl [Phenergan 25mg (*)] 25 mg PO Q6 PRN #30 tab 01/27/16 [Last Taken Unknown] Aspirin [Aspirin 325 mg (*)] 325 mg PO DAILY 11/03/16 [Last Taken 11/02/16] Gabapentin 300 mg PO BID 11/03/16 [Last Taken 11/02/16] Hydrocodone/Acetaminophen [[place] 5/325 (*)] 1 tab PO Q6H PRN 11/03/16 [Last Taken 11/02/16] Hyoscyamine Sulfate [Levsin, Hyomax-Sl 0.125 mg (*)] 0.125 mg PO Q6 PRN [Last Taken Unknown] Lisinopril 10 mg PO DAILY 11/03/16 [Last Taken 11/02/16] buPROPion XL [Wellbutrin 150mg XL] 300 mg PO DAILY 11/03/16 [Last Taken 11/02/16 ] Discharge Medications: Refer to the Discharge Home Medication list for PRN reason. - Orders Services needed: Registered Nurse, Certified Project Leader, Master Director Of Maintenance , Physical Therapy, Occupational Therapy Diet Recommendation: ADA 2000 consistent carb Diet Texture: Regular Texture Diet, Thin Liquids, Meds Whole w/Liquids - Follow Up Care Current Providers and Referrals: Patient,NotPresent [Unknown] - As per Instructions
--- NOTE | 2016-11-07 11:37 | HOSPPROG ---
Hospitalist Progress Note Assessment/Plan: #Slurred speech/facial droop: now resolved MRI unrevealing. Query if due to hypoglycemia. He reports several low sugars at home <60 in past few weeks. -cont ASA. Lipids at goal, no arrhythmia on EKG. BP at goal -pt refusing ASA for steroid injection this week, rec 325mg after #Tachycardia: pain may contribute. Stat EKG NSR. Trial small fluid bolus. No increase in oxygen, SCDs in place. #Hypoglycemia: resolved. Stopped glargine. Resume only Jardiance -A1c 6.1. #Chronic back pain: injection planned next week outpatient #Compensated CDM: BB, statin #CAD: BB, statin, ASA (will only take 81mg with upcoming spine injection) #Deconditioning: PT recs #Constipation: resolved #HTN: resume Lisinopril #SRINIVASA: CPAP #Anxiety/depression: home meds #Diabetic diet #DVT ppx: SCDs, refusing lovenox #Disp: [facility] # Subjective: no CP or SOB. Consitpated, but passing flatus Objective: Vital Signs Temp Pulse Resp BP Pulse Ox 36.8 C 74 15 159/82 H 90 L 11/07/16 07:37 11/07/16 07:37 11/07/16 07:37 11/07/16 07:37 11/07/16 07:37 Laboratory Results 11/05/16 04:47 11/06/16 05:32 11/06/16 11/07/16 11/08/16 05:59 05:59 05:59 Intake Total 700 850 Balance 700 850 PT 14.1 SEC (12.0-15.0) 11/03/16 07:30 INR 1.10 (0.83-1.16) 11/03/16 07:30 - Physical Exam Constitutional: no apparent distress Eyes: PERRL Ears, Nose, Mouth, Throat: moist mucous membranes Cardiovascular: regular rate and rhythym, no murmur, rub, or gallop Respiratory: no respiratory distress, no rales or rhonchi Gastrointestinal: normoactive bowel sounds, soft, non-tender abdomen, no palpable masses Skin: warm Musculoskeletal: generalized weakness Neurologic: AAOx3, CN II-XII Intact Psychiatric: anxious ICD10 Worksheet Patient Problems: Problems Problem Status Onset STEMI (ST elevation myocardial infarction) Acute Chest pain Acute Shortness of breath Acute CVA (cerebral vascular accident) Acute
--- NOTE | 2016-11-07 19:28 | GDS ---
[f rep st] DISCHARGE SUMMARY DISCHARGE DIAGNOSES: 1. Slurred speech/generalized weakness 2. Tachycardia. 3. Hypoglycemia. 4. Diabetes. 5. Chronic back pain. 6. Compensated cardiomyopathy. 7. Coronary artery disease. 8. Deconditioning. 9. Constipation. 10. Hypertension. 11. Obstructive sleep apnea. 12. Anxiety, depression. 13. Diffuse idiopathic skeletal hyperostosis (DISH) syndrome. 14. Irritable bowel syndrome. HISTORY OF PRESENT ILLNESS: The patient is a 75-year-old male with a history of coronary artery disease, diabetes, hypertension, ischemic cardiomyopathy, who was brought to the ER with difficulty walking and slurred type speech. His saw him last the night prior at 10 p.m., and his speech was fine and he was ambulating normally. He has chronic back problems and difficulty with balance, uses a walker. He woke up the morning of admission around 6 a.m., and felt that legs would not support him. He told his he was concerned about a stroke. She looked at him and did not note a facial droop, and he was able to talk, but she did see that he could not stand on his own. He was transferred to the ER and he was evaluated by Telemedicine. CTA of head and neck was negative for large vessel stenosis, and he was not a tPA candidate. HOSPITAL COURSE BY PROBLEM: 1. Generalized weakness: There was no evidence of acute stroke on CT, MRI and CTA. Echocardiogram was unrevealing. I do suspect that hypoglycemia may have played a role. Per my interview, he has had several lows to less than 60 at home on high-dose glargine. He was evaluated by Neurology here. He was not a tPA candidate. He does have atherosclerotic risk factors. We will resume an aspirin. He can follow up with Dr. Kaba in 4-6 weeks. He is now ambulating with his walker and will be discharged for further rehab. Suspected underlying back pain may be contributing to some of his overall weakness. Continue his statin. 2. Hypoglycemia: He did have sugars less than 60 here. I discontinued glargine as A1c was 6.1. I do not recommend him restarting this until he sees his primary insurance verification clerk. We will resume his Jardiance. 3. IBS: Continue home medications. 4. Hypertension: Lisinopril. 5. Compensated cardiomyopathy: Continue Coreg and lisinopril. 6. Coronary artery disease: On a beta delilah and statin. 7. Chronic back pain: The patient was supposed to have a spinal injection today. However, his primary pain doctor does not want to do the procedure until he is improved from this acute illness. 8. Deconditioning: This likely contributed to his overall chronic back issues and pain. He has been recommended for rehab and will be transferred to [facility]. 9. SRINIVASA: Continue CPAP. 10. Anxiety, depression: Continue home medications. 11. Constipation: Improved with bowel regimen. DISPOSITION: Patient is stable for discharge. MEDICATIONS: New medications: None. Stopped medications: Glargine. FOLLOWUP: 1. Follow sugars. 2. Follow up with primary insurance verification clerk. 3. Follow up with Dr. Kaba of Neurology in 4-6 weeks. 4. Follow up with his pain doctor. /[id number]/MODL MTDD
== END 2016-11-07 12:37 | DRG 638 ==
LOC: EDUNIT# → INTOOBSV 08:54 → F3N 10:03 → OBSVTOIN 11-04 18:21
PROVIDERS: ADMIT Internal Medicine; ATTEND Internal Medicine
DX: E11.649 Type 2 diabetes mellitus with hypoglycemia without coma (principal); Z79.4 Long term (current) use of insulin; G47.33 Obstructive sleep apnea (adult) (pediatric); I42.9 Cardiomyopathy, unspecified; M54.9 Dorsalgia, unspecified; M48.10 Ankylosing hyperostosis [Forestier], site unspecified; D75.1 Secondary polycythemia; N28.9 Disorder of kidney and ureter, unspecified; I25.10 Atherosclerotic heart disease of native coronary artery without angina pectoris; R91.1 Solitary pulmonary nodule; F41.8 Other specified anxiety disorders; K58.9 Irritable bowel syndrome, unspecified; I25.2 Old myocardial infarction; I10 Essential (primary) hypertension; Z79.82 Long term (current) use of aspirin; Z95.5 Presence of coronary angioplasty implant and graft
CPT/HCPCS: 82947-QW; 92610-GN; 97110-GP; 97116-GP; 97161-GP; 97166-GO; 97530-GO; 97535-GO; G0378; G8978-GP-CJ; G8979-GP-CI; G8987-GO-CJ; G8988-GO-CI; G8989-GO-CJ; G8996-GN-CI; G8997-GN-CI; G8998-GN-CI; J1170; J1815; J2405; Q9967

== ENCOUNTER 2017-01-30 16:59 | Inpatient (IN) | payer OTHER ==
[2017-01-30] MEDS ORDERED: NS 1,000 ML IV ONE (17:16)
--- NOTE | 2017-01-30 17:21 | EDPHY ---
H & P Stated Complaint: endoscopy tues/bx tarry stool Time Seen by Provider: 01/30/17 17:15 HPI/ROS: CHIEF COMPLAINT: Tarry stools HISTORY OF PRESENT ILLNESS: This patient is a 76 y/o male with history of type II diabetes arriving with his complaining of tarry stools onset this morning. He had an endoscopy and biopsy with Dr. Wood, servomechanism assembler on 01/28/17, two days ago, which noted gastritis and diffuse moderate inflammation with no active sites of hemorrhage. Yesterday, he felt fine. Onset of black tarry stools this morning, 3 episodes in all. No associated dizziness, nausea or vomiting. He has ongoing upper abdominal pain, but this is unchanged from his usual discomfort since the endoscopy. He has been taking Protonix and Zantac. He denies taking aspirin or any NSAIDs. REVIEW OF SYSTEMS: A 10 point review of systems was performed and is negative with the exception of the elements mentioned in the history of present illness. - Personal History Current Tetanus/Diphtheria Vaccine: Yes Tetanus Vaccine Date: < 10 years - Medical/Surgical History PMH: 1. Diffuse idiopathic skeletal hyperostosis (spinal fusion) 2. Type II diabetes mellitus 3. BPH 4. Hearing loss 5. Irritable bowel syndrome 6. Appendectomy 7. Hypertension 8. Depression 9. 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 Lives in [place]. - Physical Exam Exam: General Appearance: Alert, pleasant Eyes: Pupils equal and round, no conjunctival pallorn ENT, Mouth: Mucous membranes moist Neck: Normal inspection Respiratory: Lungs are clear to auscultation Cardiovascular: Regular rate and rhythm Gastrointestinal: Abdomen is soft, mild epigastric tenderness Rectal: Black stool Neurological: A&O, nonfocal, normal gait Skin: Warm and dry, no rash Extremities: Normal inspection, no tenderness Psychiatric: Mood and affect normal Constitutional: Initial Vital Signs Temperature (C) 37.2 C 01/30/17 17:02 Heart Rate 88 01/30/17 17:02 Respiratory Rate 18 01/30/17 17:02 Blood Pressure 147/87 H 01/30/17 17:02 O2 Sat (%) 95 01/30/17 17:02 O2 Delivery Mode Room Air Allergies/Adverse Reactions: No Known Allergies Allergy (Verified 01/30/17 17:01) Home Medications: Medication Instructions Recorded Carvedilol [Coreg (*)] 12.5 mg PO BID 09/20/15 Empagliflozin [Jardiance] 25 mg PO DAILY 09/20/15 FLUoxetine [Prozac 20 MG (*)] 60 mg PO DAILY 09/20/15 Multivitamins [Multivitamin (*)] 1 each PO DAILY 09/20/15 [place]-3 Fatty Acids [Fish Oil 1000 1,000 mg PO DAILY 09/20/15 mg (*)] Rosuvastatin Calcium [Crestor 40mg 40 mg PO HS 09/20/15 (*)] Zolpidem Tartrate [Ambien 5MG (*)] 5 mg PO HS 09/20/15 Promethazine HCl [Phenergan 25mg 25 mg PO Q6 PRN #30 tab 01/27/16 (*)] Hydrocodone/Acetaminophen [[place] 1 tab PO Q6H PRN 11/03/16 5/325 (*)] Hyoscyamine Sulfate [Levsin, 0.125 mg PO Q6 PRN 11/03/16 Hyomax-Sl 0.125 mg (*)] Lisinopril 10 mg PO DAILY 11/03/16 buPROPion XL [Wellbutrin 150mg XL] 150 mg PO DAILY 11/03/16 Insulin Glargine [Lantus 100 60 units SC DAILY 01/30/17 UNITS/ML (*)] Prochlorperazine Maleate 10 mg PO TID PRN 01/30/17 [Compazine 10mg (*)] Medical Decision Making - Diagnostics EKG Interpretation: EKG interpreted by me reveals sinus rhythm, rate 84, poor R wave progression ED Course/Re-evaluation: 76 y/o male presents with an upper GI bleed. IV established. Plan for labs including Istat, CBC, BMP, type and screen, and occult blood. Plan to administer 80mg IV Protonix and 1L IV NS. EKG reveals sinus rhythm, without evidence of ischemia or dysrhythmia. Vital signs are stable at this time. Crit 46. Stool positive for occult blood. 18:[address] Hodgson, hospitalist. He accepts admission to med/surg. 19:[address] Thomas, servomechanism assembler. Plan to observe for now. IV Protonix. Differential Diagnosis: Differential diagnosis includes does not limited to esophageal varices, bleeding peptic ulcer, AVM, diverticulosis, hemorrhagic shock, severe anemia. - Data Points Laboratory Results: Laboratory Results 01/30/17 17:30 01/30/17 17:30 Medications Given: Hydrocodone Bitart/Acetaminophen ([place] 5/325) 1 tab PO Q6H PRN PRN Reason: Pain, Moderate Able to Take PO Stop: 02/09/17 21:06 Last Admin: 01/31/17 13:42 Dose: 1 tab Bupropion HCl (Wellbutrin Xl) 150 mg PO DAILY DARREN Stop: 07/29/17 21:14 Last Admin: 01/31/17 07:50 Dose: 150 mg Carvedilol (Coreg) 12.5 mg PO BID DARREN Stop: 07/29/17 21:14 Last Admin: 01/31/17 07:50 Dose: 12.5 mg Fluoxetine HCl (Prozac) 60 mg PO DAILY DARREN Stop: 07/29/17 21:14 Last Admin: 01/31/17 10:32 Dose: 60 mg Pantoprazole Sodium 40 mg/ (Sodium Chloride) 100 mls @ 200 mls/hr IV BID DARREN Stop: 07/30/17 08:59 Last Admin: 01/31/17 07:51 Dose: 100 mls Sodium Chloride (1/2 Ns) 1,000 mls @ 75 mls/hr IV CONT DARREN Stop: 07/29/17 21:14 Last Admin: 01/30/17 21:30 Dose: 1,000 mls Insulin Glargine (Lantus Syringe) 60 units SC DAILY DARREN Stop: 07/30/17 08:59 Last Admin: 01/31/17 12:06 Dose: 60 units Lisinopril (Zestril) 10 mg PO DAILY DARREN Stop: 07/30/17 08:59 Last Admin: 01/31/17 07:51 Dose: 10 mg Miscellaneous Medication (Empagliflozin [Jardiance]) 25 mg PO DAILY DARREN Stop: 07/30/17 08:59 Last Admin: 01/31/17 12:10 Dose: Not Given Multivitamins (Tab-A-Mark) 1 each PO DAILY DARREN Stop: 07/30/17 08:59 Last Admin: 01/31/17 07:51 Dose: 1 each Bsleq-3-Tmgf Ethyl Esters (Fish Oil) 1,000 mg PO DAILY DARREN Stop: 07/30/17 08:59 Last Admin: 01/31/17 07:50 Dose: 1,000 mg Promethazine HCl (Phenergan) 25 mg PO Q6 PRN PRN Reason: Nausea/Vomiting, Use 1st Stop: 07/29/17 21:06 Last Admin: 01/31/17 12:09 Dose: 25 mg Discontinued Medications Sodium Chloride (Ns) 1,000 mls @ 0 mls/hr IV EDNOW ONE; Wide Open PRN Reason: Protocol Stop: 01/30/17 17:17 Last Admin: 01/30/17 18:07 Dose: 1,000 mls Pantoprazole Sodium (Protonix) 80 mg IVP EDNOW ONE Stop: 01/30/17 17:42 Last Admin: 01/30/17 18:12 Dose: 80 mg Promethazine HCl (Phenergan) 12.5 mg IVP EDNOW ONE Stop: 01/30/17 19:21 Last Admin: 01/30/17 19:28 Dose: 12.5 mg Departure - Departure Disposition: [facility] Acute Clinical Impression: Upper GI hemorrhage Condition: Fair Report Scribed for: Erin Dockery Report Scribed by: Maren Lira Date of Report: 01/30/17 Time of Report: 17:28 Physician Review and Approval Statement: 01/30/17 17:28 Portions of this note were transcribed by a medical office representative. I personally performed a history, physical exam, medical decision making, and confirmed accuracy of information the transcribed note.
[2017-01-30] MEDS ORDERED: PANTOPRAZOLE SODIUM 40 MG VIAL IVP ONE (17:41)
--- NOTE | 2017-01-30 17:41 | CPEKG ---
Heart Rate: 84 RR Interval: 714 P-R Interval: 156 QRSD Interval: 86 QT Interval: 400 QTC Interval: 473 P [place]: 58 QRS [place]: -7 T Wave [place]: 70 EKG Severity - ABNORMAL ECG - EKG Impression: SINUS RHYTHM EKG Impression: ABNRM R PROG, CONSIDER ASMI OR LEAD PLACEMENT Electronically Signed By: Erin Dockery 30-Jan-2017 21:52:42
[2017-01-30 17:49] LABS: ABSOLUTE IMMATURE GRANULOCYTES 0.12 10^3/uL (0.00-0.10); ADD DIFF? NO; ADD MORPH? NO; ADD SCAN? NO; ATYPICAL LYMPHOCYTE FLAG 0 (0-99); FRAGMENT RBC FLAG 0 (0-99); HEMATOCRIT 46.1 % (40.0-51.0); HEMOGLOBIN 15.4 g/dL (13.7-17.5); LEFT SHIFT FLG 0 (0-99); LIPEMIA HEMOLYSIS FLAG 80 (0-99); MEAN CELL HEMOGLOBIN 31.6 pg (27.9-34.1); MEAN CELL HEMOGLOBIN CONCENTR. 33.4 g/dL (32.4-36.7); MEAN CELL VOLUME 94.5 fL (81.5-99.8); MEAN PLATELET VOLUME 10.2 fL (8.7-11.7); PLATELET CLUMPS FLAG 0 (0-99); PLATELET COUNT 260 10^3/uL (150-400); RED BLOOD CELL COUNT 4.88 10^6/uL (4.40-6.38); RED CELL DISTRIBUTION WIDTH 14.4 % (11.5-15.2)
[2017-01-30 18:03] LABS: ANION GAP 12 mEq/L (8-16); CALCIUM 9.7 mg/dL (8.5-10.4); CARBON DIOXIDE 25 mEq/l (22-31); CHLORIDE 104 mEq/L (97-110); CREATININE 1.1 mg/dL (0.7-1.3); GLOMERULAR FILTRATION RATE > 60; GLUCOSE 98 mg/dL (70-100); POTASSIUM 4.4 mEq/L (3.5-5.2); SODIUM 141 mEq/L (134-144)
[2017-01-30] MEDS ORDERED: PROMETHAZINE HCL 25 MG/ML INJ IVP ONE (19:20)
[2017-01-30] MEDS ORDERED: PROCHLORPERAZINE MALEATE 10 MG TAB PO PRN (21:07)
[2017-01-30] MEDS ORDERED: ACETAMINOPHEN 325 MG TAB PO PRN (21:10)
[2017-01-30] MEDS ORDERED: ONDANSETRON 4 MG/2 ML VIAL IVP PRN (21:10)
[2017-01-30] MEDS ORDERED: 1/2 NS 1,000 ML IV SCH (21:15)
--- NOTE | 2017-01-30 21:16 | PDGENHP ---
History and Physical History and Physical: HISTORY AND PHYSICAL CC: Melanic stool HISTORY: This patient patient with a long history of ongoing and undiagnosed abdominal and substernal discomfort and difficulty with digestion had an EGD done [address] downing. This showed some esophagitis with concern for eosinophilic esophagitis as well as some gastritis and duodenitis despite ongoing acid reduction therapy as an outpatient. The patient yesterday started knowing noticing a melenic stools and does continue today. He does not feel lightheaded and does not have shortness of breath or chest pain. He is not having any nausea or vomiting at this time. There is no other bleeding or bruising anywhere else. He does not have a history of anemia, history of bleeding ulcers, history of liver disease. 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 I have reviewed the list and ordered appropriate medicines. PHYSICAL EXAMINATION: Vital Signs: Stable without fever so far Shank Maker: Examination: General: alert, oriented, good mentation, relaxed Skin: warm, dry, good color, no rash HEENT: normal Neck: no mass or jvd Resps: relaxed Lungs: clear breath sounds Heart: regular, no murmur Abdomen: soft, nondistended, nontender, +BS, no mass Upper Extremities: normal Lower Extremities: no edema, warm No Bleeding or bruising Neurologic: normal speech/language, normal buttonhole maker hand, no focal weakness IV site: looks normal LABORATORY DATA: Hemoccult-positive stool BUN elevated at 40 with normal creatinine Hemoglobin normal white blood cell count is at 11 RADIOLOGY STUDIES: None so far 12 LEAD EKG: Sinus rhythm with no concerning abnormalities otherwise ASSESSMENT: -acute upper GI bleed with melenic stools 2 days after upper endoscopy with biopsies. At that time of endoscopy there was some mild gastritis and duodenitis with no signs of bleeding, as well as some esophagitis that appears to probably be eosinophilic in nature with biopsies pending. There are no ulcers or other lesions that look like they would acutely bleed. This may well be bleeding from his biopsy sites. A could be bleeding from a more distal small bowel lesion. He is hemodynamically stable and within normal hemoglobin start with. Will observe him overnight to make sure that the bleeding either stops or does not require further endoscopy were supplemental transfusion. Will continue his PPI via IV at the moment. Will keep him on a clear liquid diet at this time. I have reviewed the patient's case in detail with Dr. Erin Dockery I have reviewed the patient's past medical records as part of this assessment, including previous hospital admission records
[2017-01-30] MEDS: FLUoxetine 20 MG CAP PO SCH (21:30)
[2017-01-30] MEDS: CARVEDILOL 25 MG TAB PO SCH (21:31)
[2017-01-30] MEDS: buPROPion XL 150 MG TAB PO SCH (21:31)
[2017-01-30] MEDS: HYDROCODONE/APAP 5/325 TAB PO PRN (22:13)
[2017-01-31 05:41] LABS: ABSOLUTE IMMATURE GRANULOCYTES 0.11 10^3/uL (0.00-0.10); ADD DIFF? NO; ADD MORPH? NO; ADD SCAN? NO; ATYPICAL LYMPHOCYTE FLAG 20 (0-99); FRAGMENT RBC FLAG 0 (0-99); LEFT SHIFT FLG 0 (0-99); LIPEMIA HEMOLYSIS FLAG 80 (0-99); MEAN CELL HEMOGLOBIN 31.2 pg (27.9-34.1); MEAN CELL HEMOGLOBIN CONCENTR. 32.5 g/dL (32.4-36.7); MEAN CELL VOLUME 95.9 fL (81.5-99.8); MEAN PLATELET VOLUME 10.4 fL (8.7-11.7); PLATELET CLUMPS FLAG 0 (0-99); PLATELET COUNT 199 10^3/uL (150-400); RED BLOOD CELL COUNT 4.17 10^6/uL (4.40-6.38); RED CELL DISTRIBUTION WIDTH 14.5 % (11.5-15.2)
[2017-01-31 05:44] LABS: ANION GAP 10 mEq/L (8-16); CALCIUM 8.4 mg/dL (8.5-10.4); CARBON DIOXIDE 21 mEq/l (22-31); CHLORIDE 110 mEq/L (97-110); CREATININE 0.9 mg/dL (0.7-1.3); GLOMERULAR FILTRATION RATE > 60; GLUCOSE 49 mg/dL (70-100); POTASSIUM 3.5 mEq/L (3.5-5.2); SODIUM 141 mEq/L (134-144)
[2017-01-31] MEDS: CARVEDILOL 25 MG TAB PO SCH ×2 (07:50→20:21)
[2017-01-31] MEDS: buPROPion XL 150 MG TAB PO SCH (07:50)
[2017-01-31] MEDS: OMEGA-3 FATTY ACIDS 1,000 MG CAP PO SCH (07:50)
[2017-01-31] MEDS: LISINOPRIL 10 MG TAB PO SCH (07:51)
[2017-01-31] MEDS: MULTIVITAMINS 1 EACH TAB PO SCH (07:51)
[2017-01-31] MEDS: PANTOPRAZOLE SODIUM 40 MG in NS 100 ML IV SCH ×2 (07:51→20:22)
[2017-01-31] MEDS: FLUoxetine 20 MG CAP PO SCH (10:32)
[2017-01-31] MEDS: INSULIN GLARGINE 100 UNITS/ML SYRINGE SC SCH (12:06)
[2017-01-31] MEDS: PROMETHAZINE HCL 25 MG TAB PO PRN (12:09)
[2017-01-31] MEDS: Empagliflozin [Jardiance] 25 MG PO SCH (12:10)
[2017-01-31] MEDS: HYDROCODONE/APAP 5/325 TAB PO PRN ×2 (13:42→21:54)
[2017-01-31 14:29] LABS: HEMATOCRIT 38.3 % (40.0-51.0); HEMOGLOBIN 12.6 g/dL (13.7-17.5)
[2017-01-31] MEDS: PROMETHAZINE HCL 25 MG/ML INJ IVP PRN ×2 (15:39→21:54)
[2017-01-31 16:02] LABS: ANION GAP 7 mEq/L (8-16); CALCIUM 8.7 mg/dL (8.5-10.4); CARBON DIOXIDE 24 mEq/l (22-31); CHLORIDE 105 mEq/L (97-110); CREATININE 0.9 mg/dL (0.7-1.3); GLOMERULAR FILTRATION RATE > 60; GLUCOSE 152 mg/dL (70-100); POTASSIUM 3.8 mEq/L (3.5-5.2); SODIUM 136 mEq/L (134-144)
--- NOTE | 2017-01-31 16:16 | GCON ---
[f rep st] CONSULTATION REFERRING PHYSICIAN: Darion Ascencio MD REASON FOR CONSULTATION: Melena HISTORY OF PRESENT ILLNESS: Dear Dr. Ascencio: Thank you very kindly for asking me to evaluate your p atient in consultation for a chief complaint of melena. He is a pleasant 76-year-old male who underw ent an upper endoscopy for evaluation of somewhat chronic abdominal pain and was found to have diffus e erosive gastritis. Random biopsies of the stomach inflammation were taken. He was discharged in g ood condition but developed melena overnight. He has had at least 3 dark bowel movements. His initi al hematocrit was 46 and nadired at 40 this morning. He denies any ongoing melena. There has been n o hematemesis. He has not had any syncope, chest pain, or breathing difficulties. He does wear a na adilson CPAP at night. He is hungry this morning but continues to have diffuse abdominal discomfort whic h is unchanged from baseline. I am asked to assist with further evaluation and management. PAST MEDICAL HISTORY: Significant for: 1. Coronary artery disease. 2. An ischemic cardiomyopathy. 3. History of pericarditis. 4. Type 2 diabetes. 5. Obstructive sleep apnea. 6. Hypertension. 7. Irritable bowel syndrome. 8. Depression. PAST SURGICAL HISTORY: Significant for appendectomy, cholecystectomy, ventral abdominal hernia repai r, quadriceps tendon rupture with repair. 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 He is , lives wit h his . No substance abuse.. FAMILY HISTORY: Significant for brain cancer. No history of gastrointestinal disease such as gastri c cancer or colon cancer. MEDICATIONS: On admission include Wellbutrin, Coreg, Prozac, Levsin, Lantus, Zestril, multivitamin, fish oil, pantoprazole, Zofran, Compazine as needed, Crestor, Ambien. ALLERGIES: NONE KNOWN. REVIEW OF SYSTEMS: CONSTITUTIONAL: No malaise, fever, chills, night sweats, or weight loss. No ano rexia. HEENT: Denies headache, visual disturbances, sore throat, rhinorrhea, or epistaxis. PULMONA RY: No cough or shortness of breath. CARDIOVASCULAR: No chest pain or palpitations. GASTROINTESTI NAL: Chronic abdominal pain. No constipation. He reports 2 days of melena, none since admission. No hematemesis. No nausea, vomiting, or heartburn. RHEUMATOLOGIC: No joint pain. DERMATOLOGIC: N o rash or pruritus. ENDOCRINE: No heat or cold intolerance. GENITOURINARY: No hematuria or flank pain. No dysuria. PSYCHIATRIC: Insomnia. He wears a CPAP at night to help him sleep. PHYSICAL EXAMINATION: VITAL SIGNS: Blood pressure is 128/69, heart rate is 80, respirations are 16, oxygenation is 95% on room air, temperature is 36.7. GENERAL: No acute distress. HEENT: Normocep halic, atraumatic. Oropharynx clear. NECK: Supple. PULMONARY: Coarse breath sounds with prolonge d expiratory phase. No rales or wheeze. CARDIOVASCULAR: Regular rate and rhythm without murmur, no friction rub. GI: Abdomen is diffusely tender but nondistended, no rebound or guarding. Previous surgical scars are well healed. No abdominal bruit or ascites. No organomegaly. ABDOMEN: Soft and easily compressible. MUSCULOSKELETAL: No joint deformity, swelling or warmth. DERMATOLOGIC: The skin color is normal. No jaundice. Capillary refill is normal. NEUROLOGIC: Alert to person, place , and time. Cranial nerves normal. Motor nonfocal. LABORATORY DATA: Includes a white blood count of 10.5, hematocrit is 40, platelets are 199. Sodium 141, potassium 3.5, chloride 110, bicarbonate 21, BUN 33, creatinine 0.9, glucose 49. Occult blood i s positive. Upper GI endoscopy performed on Friday reveals erosive gastritis. IMPRESSION: 1. Melena. This is likely due to procedural biopsy. 2. Anemia secondary to blood loss. 3. Coronary artery disease with cardiomyopathy. 4. Chronic obstructive pulmonary disease. 5. 6. Sleep apnea on CPAP. RECOMMENDATIONS: 1. Oral b.i.d. PPI. 2. Advance diet as tolerated. 3. Repeat hematocrit later this afternoon. If this is improved or stable, he may go home. 4. If he develops continued anemia and ongoing melena, then repeat endoscopy to interrogate the biop sy sites will be arranged. 5. In regard to his chronic abdominal pain, the cause of this is unknown but likely is due to irrita ble bowel syndrome. This will need to be further evaluated at this point with Dr. Lowe as outpatient. His endoscopy was being performed to evaluate this, and I believe while he has erosive gastritis, t his does not explain the chronic nature of his abdominal pain. 6. Further recommendations to follow his clinical progress. I have discussed this with Dr. Ascencio. /[id number]/MODL
[2017-01-31] MEDS ORDERED: MBX SOLN 30 ML BOTTLE PO PRN (16:23)
--- NOTE | 2017-01-31 16:23 | ASMTCMCOM ---
CM Note CM Note Notes: Pt has been admitted for melenic stools. He has a hx of IBS, CAD, HTN, depression and had na EGD 2 days ago. He has been to [facility] in the past. CM will follow for any d/c needs. Date Signed: 01/31/2017 04:22 PM Electronically Signed By:EUGENIE Carrillo
--- NOTE | 2017-01-31 16:32 | HOSPPROG ---
Hospitalist Progress Note Assessment/Plan: Assessment: 76-year-old male presents with acute upper GI bleed complicated by acute blood loss anemia and acute on chronic abdominal pain Plan: 1. Upper GI bleed. Acute, most likely secondary to recent biopsies taken during upper endoscopy, evidenced by elevated BUN, positive fecal occult blood test with melanotic stools, anemia -discussed with Dr. Jose Thomas, we agree that given the patient's worsening anemia, ongoing abdominal pain, is prudent to keep him on IV ppi, treat his abdominal pain, continue to monitor his hemoglobin level as well as blood pressure -if hemoglobin level continues to decline, please discussed with Dr. Jose Thomas tomorrow and consider repeat upper endoscopy -will keep NPO after midnight -continue IV PPI twice daily 2. Acute blood loss anemia. Reviewed outside records, most recent hemoglobin level is 15.4 as an outpatient, his current level is less than 13 and he continues to have melanotic stools -repeat hemoglobin level in a.m. -continue monitor bowel movements -hold on transfusion at this time 3. Abdominal pain. Acute on chronic, new problem this provider, further workup indicated. I strongly suspect that the patient has irritable bowel syndrome, and this is diagnosis frequently cited in patient's past medical records, although the patient reports it is not been a diagnosis assigned to him by his primary academic intern, Dr. Dennis Wood -that being said, with the patient's suspected bleeding biopsy site and GI bleed , there is a risk of his pain be secondary to ulceration and stomach pathology, and we should treat both supportively and also monitor carefully -discussed with Dr. Jose Thomas, we agreed to further evaluate with lipase level , also send venous lactic acid to ensure patient is not experiencing any bowel ischemia, as I have reviewed patient's abdominal CTs from 2013 in 2015, the latter of which does demonstrate some mesenteric edema which could be consistent with some transient ischemic colitis -at the present time, we will treat supportively with IV morphine and Phenergan , as well as Levsin (home Rx for IBS) and Maalox -will hold off on further abdominal imaging, as the patient reports he has had several MRCP was performed at [facility] and has also recently undergone upper endoscopy 4. Chronic pain with continuous opiate dependency. The patient chronically uses [place] for his chronic abdominal pain, and this will be continued 5. Suspected mild cognitive impairment. The patient demonstrates an abnormally low level of articulating his symptoms and providing history, raising concerns of early dementia, this is experienced by both myself as well as Dr. Jose Thomas and the patient's nurse -get cog eval in a.m. to further assess -get physical therapy and occupational therapy values 6. Coronary artery disease. Chronic, continue home medications Diet. Regular this afternoon as tolerates, NPO after midnight Prophylaxis. High risk patient, SCDs Code. Full Disposition. Anticipated discharge is uncertain, upgraded to inpatient admission status for reasonable medical necessity including worsening abdominal pain in the setting of high risk acute upper GI bleed as well as acute blood loss anemia, resulting in greater than 48 hours of inpatient care. Subjective: reporting sudden central abd pain Objective: Vital Signs Temp Pulse Resp BP Pulse Ox 36.6 C 88 20 118/52 L 94 01/31/17 15:31 01/31/17 15:31 01/31/17 15:31 01/31/17 15:31 01/31/17 15:31 Laboratory Results 01/31/17 14:22 01/31/17 14:22 - Physical Exam Constitutional: appears nourished, uncomfortable, No no apparent distress (mild) , No not in pain Cardiovascular: regular rate and rhythym, no murmur, rub, or gallop, No edema Respiratory: no respiratory distress, no rales or rhonchi, clear to auscultation Gastrointestinal: normoactive bowel sounds, soft, non-tender abdomen, no palpable masses, No guarding, No distension Genitourinary: no bladder fullness, no bladder tenderness, no renal bruits Neurologic: AAOx3, sensation intact bilaterally, No weakness, No facial droop Psychiatric: anxious, poor insight, poor memory, other (poor capacity to articulate self), No agitated ICD10 Worksheet Patient Problems: Problems Problem Status Onset STEMI (ST elevation myocardial infarction) Acute Chest pain Acute Shortness of breath Acute CVA (cerebral vascular accident) Acute Upper GI hemorrhage Acute
--- NOTE | 2017-01-31 16:52 | PDMN ---
Medical Necessity Medical necessity: change to IP; los>2 mn for high risk acute UGIB, r/t recent EGD/ bx's, acute blood loss anemia, abd pain; requires IV PPI, GI consult, further monitoring; comorbid CAD, chronic pain, cognitive impairment; per order and progress note 01/31/17
[2017-01-31] MEDS: ROSUVASTATIN CALCIUM 40 MG TAB PO SCH (20:21)
[2017-01-31] MEDS: HYOSCYAMINE SULFATE 0.125 MG TAB PO PRN (20:22)
[2017-01-31] MEDS: ZOLPIDEM TARTRATE 5 MG TAB PO SCH (21:54)
[2017-02-01 05:24] LABS: % IMMATURE GRANULYOCYTES 0.7 % (0.0-1.1); ABSOLUTE IMMATURE GRANULOCYTES 0.05 10^3/uL (0.00-0.10); ADD DIFF? NO; ADD MORPH? NO; ADD SCAN? NO; ATYPICAL LYMPHOCYTE FLAG 10 (0-99); FRAGMENT RBC FLAG 0 (0-99); HEMATOCRIT 37.2 % (40.0-51.0); HEMOGLOBIN 12.3 g/dL (13.7-17.5); LEFT SHIFT FLG 0 (0-99); LIPEMIA HEMOLYSIS FLAG 80 (0-99); MEAN CELL HEMOGLOBIN 31.4 pg (27.9-34.1); MEAN CELL HEMOGLOBIN CONCENTR. 33.1 g/dL (32.4-36.7); MEAN CELL VOLUME 94.9 fL (81.5-99.8); MEAN PLATELET VOLUME 10.4 fL (8.7-11.7); PLATELET CLUMPS FLAG 0 (0-99); PLATELET COUNT 205 10^3/uL (150-400); RED BLOOD CELL COUNT 3.92 10^6/uL (4.40-6.38); RED CELL DISTRIBUTION WIDTH 14.5 % (11.5-15.2)
[2017-02-01 05:42] LABS: ALANINE AMINOTRANSFERASE 41 IU/L (21-72); ALBUMIN 2.9 g/dL (3.5-5.0); ALKALINE PHOSPHATASE 77 IU/L (38-126); ANION GAP 8 mEq/L (8-16); ASPARTATE AMINOTRANSFERASE 44 IU/L (17-59); BILIRUBIN,TOTAL 0.6 mg/dL (0.1-1.4); CALCIUM 8.7 mg/dL (8.5-10.4); CARBON DIOXIDE 23 mEq/l (22-31); CHLORIDE 110 mEq/L (97-110); CREATININE 0.9 mg/dL (0.7-1.3); GLOMERULAR FILTRATION RATE > 60; GLUCOSE 57 mg/dL (70-100); POTASSIUM 3.6 mEq/L (3.5-5.2); SODIUM 141 mEq/L (134-144); TOTAL PROTEIN 5.2 g/dL (6.3-8.2)
[2017-02-01] MEDS ORDERED: D5W NS 1,000 ML IV SCH (08:45)
[2017-02-01] MEDS: PANTOPRAZOLE SODIUM 40 MG in NS 100 ML IV SCH ×2 (09:31→21:45)
--- NOTE | 2017-02-01 11:12 | SOAPPROG ---
SOAP Progress Note Assessment/Plan: Assessment: 1. Episodic generalized abdominal pain- etiology unknown 2. Nausea 3. Melena post EGD- likely due to gastric biopsies of a chronic appearing gastritis 4. Anemia secondary to blood loss Plan: 1. ADAT 2. Daily PPI 3. I would not initiate any further w/u for his current symptoms unless they are prohibiting him from discharge today 4. If ongoing pain and nausea then I would start with an abdomen and pelvic CT scan with oral and IV contrast. 5. For now, try to advance diet, treat nausea symptomatically with zofran and observe. 6. Outpatient GI f/u with Dr. Wood. 7. Please call me if the CT is going to be warranted so I can f/u with this. 02/01/17 11:09 Subjective: CC: melena no BM overnight. Hct slightly down but stable No current nausea or pain but he says this comes in episodes. Sleeping comfortable with nasal CPAP when I awoke him this AM Objective: Vital Signs Temp Pulse Resp BP Pulse Ox 36.4 C 65 18 113/57 L 97 02/01/17 07:09 02/01/17 07:09 02/01/17 07:09 02/01/17 07:09 02/01/17 07:09 Laboratory Results 02/01/17 04:55 02/01/17 04:55 01/31/17 02/01/17 02/02/17 05:59 05:59 05:59 Intake Total 790 Balance 790 Physical Exam - Physical Exam General Appearance: no apparent distress EENT: normal ENT inspection Neck: supple Respiratory: lungs clear Cardiac/Chest: regular rate, rhythm Abdomen: normal bowel sounds, non-tender, soft, No distended, No guarding, No rebound, No mass, No ascites, No bruit ICD10 Worksheet Patient Problems: Problems Problem Status Onset Upper GI hemorrhage Acute CVA (cerebral vascular accident) Acute Chest pain Acute STEMI (ST elevation myocardial infarction) Acute Shortness of breath Acute
[2017-02-01] MEDS: CARVEDILOL 25 MG TAB PO SCH ×2 (11:28→21:45)
[2017-02-01] MEDS: buPROPion XL 150 MG TAB PO SCH (11:30)
[2017-02-01] MEDS: FLUoxetine 20 MG CAP PO SCH (11:30)
[2017-02-01] MEDS: LISINOPRIL 10 MG TAB PO SCH (11:30)
[2017-02-01] MEDS: OMEGA-3 FATTY ACIDS 1,000 MG CAP PO SCH (11:31)
[2017-02-01] MEDS: MULTIVITAMINS 1 EACH TAB PO SCH (11:31)
[2017-02-01] MEDS: Empagliflozin [Jardiance] 25 MG PO SCH (11:52)
[2017-02-01] MEDS: HYDROCODONE/APAP 5/325 TAB PO PRN (12:07)
[2017-02-01] MEDS: PROMETHAZINE HCL 25 MG TAB PO PRN ×2 (12:08→22:05)
[2017-02-01] MEDS ORDERED: D50W 25 GM/50 ML SYR IVP PRN (13:56)
--- NOTE | 2017-02-01 14:02 | HOSPPROG ---
Hospitalist Progress Note Assessment/Plan: 76-year-old with chronic abdominal pain is admitted with melena. His hemoglobin is stable he has not needed transfusions. He underwent an endoscopy prior to admission with biopsies done. GI saw him in consultation and felt that the melena and GI bleed was likely secondary to oozing from the gastritis and biopsy sites without further recommendations as to repeat endoscopy. # acute on chronic abdominal pain. Patient complaining of 10/10 pain however looks relatively comfortable with no guarding or rebound on exam. I do have a suspicion for possible drug-seeking behavior he does have continuous opiate dependency. * Check CT scan if negative can DC home * Will add Oxy IR and discontinue all IV pain meds at this time. * On discharge he will go back on his home regimen. # upper GI bleed, acute likely secondary to recent biopsies during upper endoscopy. No further workup necessary as he hemoglobin is stable. Continue PPI therapy # acute blood loss anemia, mild will monitor it is been stable here. # chronic pain with continuous opioid dependency # suspected mild cognitive impairment. Cog eval pending. # coronary artery disease, no acute chest pain or shortness of breath at this time continue home medications DVT prophylaxis. Patient high risk given recent GI bleed will provide SCDs. Subjective: Patient new to me and chart reviewed. Complains of severe abdominal pain however looks relatively comfortable and exhibit some evidence of pain seeking behavior. Objective: Vital Signs Temp Pulse Resp BP Pulse Ox 36.4 C 83 16 153/96 H 96 02/01/17 11:24 02/01/17 11:28 02/01/17 11:24 02/01/17 11:30 02/01/17 11:24 Laboratory Results 02/01/17 04:55 02/01/17 04:55 01/31/17 02/01/17 02/02/17 05:59 05:59 05:59 Intake Total 790 Balance 790 - Physical Exam Constitutional: no apparent distress, chronically ill appearing, obese Eyes: PERRL, EOMI Ears, Nose, Mouth, Throat: moist mucous membranes Cardiovascular: regular rate and rhythym, no murmur, rub, or gallop Respiratory: no respiratory distress, no rales or rhonchi Gastrointestinal: normoactive bowel sounds, no palpable masses, tenderness ( diffuse) Genitourinary: no bladder fullness Skin: warm Psychiatric: interacting appropriately, anxious, poor judgement Lymph, Heme, Immunologic: no cervical LAD ICD10 Worksheet Patient Problems: Problems Problem Status Onset Upper GI hemorrhage Acute CVA (cerebral vascular accident) Acute Chest pain Acute STEMI (ST elevation myocardial infarction) Acute Shortness of breath Acute
[2017-02-01] MEDS ORDERED: IOPAMIDOL (ISOVUE-300) 100 ML BTL ONE (15:42)
[2017-02-01] MEDS: SUCRALFATE 1 GM/10 ML UDCUP PO SCH ×2 (17:41→21:45)
[2017-02-01] MEDS: oxyCODONE IR 5 MG TAB PO PRN ×2 (17:42→21:45)
[2017-02-01] MEDS: INSULIN LISPRO 100 UNIT/ML SC SCH (18:44)
[2017-02-01] MEDS: HYOSCYAMINE SULFATE 0.125 MG TAB PO PRN (19:27)
[2017-02-01] MEDS: ROSUVASTATIN CALCIUM 40 MG TAB PO SCH (21:45)
[2017-02-01] MEDS: ZOLPIDEM TARTRATE 5 MG TAB PO SCH (22:37)
[2017-02-02] MEDS: oxyCODONE IR 5 MG TAB PO PRN ×2 (01:32→11:09)
[2017-02-02 06:03] LABS: HEMATOCRIT 35.2 % (40.0-51.0); HEMOGLOBIN 11.5 g/dL (13.7-17.5); MEAN CELL HEMOGLOBIN 31.2 pg (27.9-34.1); MEAN CELL HEMOGLOBIN CONCENTR. 32.7 g/dL (32.4-36.7); MEAN CELL VOLUME 95.4 fL (81.5-99.8); RED BLOOD CELL COUNT 3.69 10^6/uL (4.40-6.38); RED CELL DISTRIBUTION WIDTH 14.6 % (11.5-15.2)
[2017-02-02 06:17] LABS: ALANINE AMINOTRANSFERASE 45 IU/L (21-72); ALBUMIN 2.9 g/dL (3.5-5.0); ALKALINE PHOSPHATASE 71 IU/L (38-126); ANION GAP 6 mEq/L (8-16); ASPARTATE AMINOTRANSFERASE 37 IU/L (17-59); BILIRUBIN,TOTAL 0.5 mg/dL (0.1-1.4); CALCIUM 8.4 mg/dL (8.5-10.4); CARBON DIOXIDE 22 mEq/l (22-31); CHLORIDE 111 mEq/L (97-110); CREATININE 0.9 mg/dL (0.7-1.3); GLOMERULAR FILTRATION RATE > 60; GLUCOSE 162 mg/dL (70-100); POTASSIUM 3.7 mEq/L (3.5-5.2); SODIUM 139 mEq/L (134-144); TOTAL PROTEIN 4.9 g/dL (6.3-8.2)
[2017-02-02] MEDS: MULTIVITAMINS 1 EACH TAB PO SCH (10:14)
[2017-02-02] MEDS: LISINOPRIL 10 MG TAB PO SCH (10:14)
[2017-02-02] MEDS: OMEGA-3 FATTY ACIDS 1,000 MG CAP PO SCH (10:14)
[2017-02-02] MEDS: PANTOPRAZOLE SODIUM 40 MG in NS 100 ML IV SCH (10:14)
[2017-02-02] MEDS: CARVEDILOL 25 MG TAB PO SCH (10:15)
[2017-02-02] MEDS: FLUoxetine 20 MG CAP PO SCH (10:15)
[2017-02-02] MEDS: buPROPion XL 150 MG TAB PO SCH (10:45)
[2017-02-02] MEDS: INSULIN LISPRO 100 UNIT/ML SC SCH (10:47)
[2017-02-02] MEDS: Empagliflozin [Jardiance] 25 MG PO SCH (10:47)
[2017-02-02] MEDS: INSULIN GLARGINE 100 UNITS/ML SYRINGE SC SCH (10:49)
--- NOTE | 2017-02-02 10:58 | GDS ---
[f rep st] DISCHARGE SUMMARY DIAGNOSES: 1. Upper gastrointestinal bleed likely secondary to recent endoscopy and biopsies done. The patient had evidence of gastritis and had a procedural biopsy prior to admission. He is currently on Proton ix. 2. Anemia secondary to blood loss. Hemoglobin stabilizing. His stools continue to be black but are turning more brown. 3. Coronary artery disease with cardiomyopathy. Continue current medications. 4. Chronic obstructive pulmonary disease. 5. Chronic abdominal pain acutely worse, likely secondary to the gastritis. I added Carafate to his regimen and encouraged him not to take it around the time of his other medications. I also gave him a small supply of OxyIR, #20. Follow up with his primary care physician for ongoing chronic pain ma aleksandra. 6. Sleep apnea on CPAP. 7. Diabetes, mild hypoglycemia here in the hospital. Decrease Lantus to 50 units. 8. Hypertension. 9. Depression. 10. Irritable bowel syndrome. PROCEDURES DONE: Abdominal CT scan showing no significant abnormalities. CONSULTATIONS: GI, Dr. Jose Thomas. HOSPITAL COURSE: The patient is a 76-year-old with [id number] abdominal pain. He saw Dr. Amna grossman and had an upper endoscopy done with biopsies taken. He had notable gastritis with recommendation s to start Protonix. After his procedure, he started noting black stools. His hemoglobin did drop s lightly but not significantly and stabilized during his stay here. He was seen in consultation with [facility], who felt that this bleeding was secondary to a postprocedural bleed from the biopsy site. It was not brisk. It stabilized during his stay here, and his stools are sta rting to become more brown. The patient continued to complain of severe abdominal pain and Carafate was added to his regimen with some improvement. He also took a few OxyIR that worked better than the [place]. I did give the patient a small supply of OxyIR, #20 to take home with him. He needs to foll ow up with Dr. Miller for ongoing chronic pain management. His CT scan showed no obvious abnormali ties to account to the worsening pains so I suspect this is from the gastritis and should improve ove r time. Other medical issues were he was mildly hypoglycemic during his stay. I suspect he was eati ng less than usual. I did decrease his Lantus to 50 units. He can increase this again as an outpati ent, depending on his blood sugars. The rest of his medical issues remain stable. On discharge, hem oglobin was 11.5. Sugars have started to stabilize. DISCHARGE MEDICATIONS: Please see discharge medication form. He will resume his home medications in cluding Protonix recently added by Dr. Wood 40 mg twice daily, Carafate as needed, and OxyIR as nee ded. FOLLOWUP INSTRUCTIONS: He should follow up with Dr. Temo Miller this week and follow up with Dr. Wood. TOTAL TIME SPENT: With patient on day of discharge in coordination of care is 35 minutes. /[id number]/MODL
[2017-02-02 11:04] VITALS: BP 122/79; PULSE 82; RESP 16; TEMP 98.4; O2SAT 95
[2017-02-02] MEDS ORDERED: FLU VACC QS 2017-18 (3YR+)/PF 0.5 ML SYR (FLUARIX QUAD) IM ONE ×2 (14:23→14:24)
[2017-02-02] MEDS: SUCRALFATE 1 GM/10 ML UDCUP PO SCH ×2 (14:28)
--- NOTE | 2017-02-02 15:19 | ASDISCHSUM ---
Discharge Information Plan Status:Home with No Needs Medically Cleared to Leave:02/02/2017 Discharge Date:02/02/2017 02:49 PM CM D/C Disposition:Home, Routine, Self-Care ADT D/C Disposition:Home, Routine, Self-Care Projected Discharge Date:02/02/2017 02:49 PM Transportation at D/C: Discharge Delay Reason: Follow-Up Date:02/02/2017 02:49 PM Discharge Slot: Final Diagnosis: Placement Information Patient Contact Information Contact Name:JUAN LUIS Relationship: Address:[facility] [facility] Work Phone: City:[facility] Phone: [facility]/Zip Code:[place] [address] Email: Financial Information Financial Class: Primary Plan Desc:MEDICARE OUTPATIENT Primary Plan Number:[id number] Secondary Plan Desc:TIMMY PPO [employer] [employer] Secondary Plan Number:[id number] Assessment Information [facility] CM Progress Note CM Note CM Note Notes: Pt has been admitted for melenic stools. He has a hx of IBS, CAD, HTN, depression and had na EGD 2 days ago. He has been [facility] in the past. CM will follow for any d/c needs. Date Signed: 01/31/2017 04:22 PM Electronically Signed By:EUGENIE Carrillo Intervention Information Intervention Type:LUDMILA-Signed Date of Service:01/31/2017 04:17 PM Patient Type:Observation Staff Member:America Gary Hours: Discipline: Severity: Comment:
== END 2017-02-02 14:49 | disposition home or self-care (01) | DRG 920 ==
LOC: INTOOBSV 18:17 → F3E 20:16 → OBSVTOIN 01-31 16:24
PROVIDERS: ADMIT Internal Medicine; ATTEND Internal Medicine
DX: K91.840 Postprocedural hemorrhage of a digestive system organ or structure following a digestive system procedure (principal); D62 Acute posthemorrhagic anemia; I25.10 Atherosclerotic heart disease of native coronary artery without angina pectoris; J44.9 Chronic obstructive pulmonary disease, unspecified; K29.70 Gastritis, unspecified, without bleeding; G47.33 Obstructive sleep apnea (adult) (pediatric); E11.649 Type 2 diabetes mellitus with hypoglycemia without coma; I10 Essential (primary) hypertension; F32.9 Major depressive disorder, single episode, unspecified; K58.9 Irritable bowel syndrome, unspecified; N40.0 Benign prostatic hyperplasia without lower urinary tract symptoms; I25.2 Old myocardial infarction; Z23 Encounter for immunization
CPT/HCPCS: 82947-QW; 92523-GN; 96374; 97161-GP; 97165-GO; G0008; G8978-GP-CI; G8979-GP-CI; G8980-GP-CI; G8987-GO-CI; G8988-GO-CI; G9168-GO-CI; G9169-GN-CH; J1815; J2405; J2550; Q9967

== ENCOUNTER 2017-05-21 18:54 | Inpatient (IN) | payer OTHER ==
--- NOTE | 2017-05-21 19:05 | EDPHY ---
H & P HPI/ROS: CHIEF COMPLAINT: Left-sided pain and difficulty walking secondary to a fall HISTORY OF PRESENT ILLNESS: The patient is a 76 y/o male with a history of cardiac stents, GI bleed, hypertension, Type II Diabetes, and DISH arriving via EMS after having a mechanical fall today. He reports long-standing gait difficulty and progressively worsening balance (over past 6-8 weeks), for which she just started physical therapy. His first physical therapy for his balance was today. Just prior to the accident his gait was some worse than normal which he believes was due to the physical therapy. While exiting his car today he slipped on ice and landed on his left side and hit his head. There was no loss of consciousness. When EMS arrived, they noticed that the patient had difficulty walking. Denies headache, new neck pain, back pain, chest pain, shortness of breath, urinary or bowel complaints, or other pertinent symptoms. REVIEW OF SYSTEMS: A ten point review of systems was performed and is negative with the exception of the items mentioned in the HPI. Past medical history: 1. Irritable bowel 2. Bowel obstruction 3. Hernia 4. Hypertension 5. Depression 6. CPAP at night 7. GA 8. DISH 9. Type II diabetes 10. GI bleed Past surgical history: 1. GI Bleed 2. Appendectomy 3. Spinal fusion 4. 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 General Appearance: Alert. Vital signs reviewed. Head: Normocephalic atraumatic. Eyes: Pupils equal and round, no conjunctival injection, no discharge. Anicteric. ENT, Mouth: Mucous membranes are moist, no oropharyngeal erythema or edema. Neck: Nontender to palpation over the cervical spine in the midline. Respiratory: Lungs are clear to auscultation; no wheezes, rales, or rhonchi. Cardiovascular: Regular rate and rhythm; no murmur, rub, or gallop. Gastrointestinal: Abdomen is soft and nontender, no masses or organomegaly, bowel sounds normal. Skin: Warm and dry, no rashes on exposed skin, normal color. Back: Nontender to palpation over the thoracolumbar spine. No CVAT. Extremities: Abrasion of left 4th finger over DIP. No lower extremity edema, no calf tenderness or swelling. Neurological: Alert and oriented. Moving all four extremities spontaneously and equally. Strength is symmetric--4/5 in the lower extremities and 5/5 in the upper extremities. Sensation is intact to light touch over all 4 extremities. He has difficulty walking with his cane--he is off balance and frequently stumbles. Psychiatric: Normal affect. - Personal History Tetanus Vaccine Date: < 10 years - Medical/Surgical History Hx Asthma: No Hx Chronic Respiratory Disease: Yes Hx Diabetes: Yes Hx Cardiac Disease: Yes Hx Renal Disease: No Hx Cirrhosis: No Hx Alcoholism: No Hx HIV/AIDS: No Hx Splenectomy or Spleen Trauma: No Other PMH: Irritable bowel, bowel obstruction 12 years ago , appy, hernia, Type II diabetic, spine problems (cortisone injection, HTN , depression, cpap at night, spinal fusion, endoscopy, heart stents 07/2014, GA, bronchitis, DISH - Social History Smoking Status: Never smoked Constitutional: Initial Vital Signs Temperature (C) 36.6 C 05/21/17 19:10 Heart Rate 79 05/21/17 19:10 Respiratory Rate 18 05/21/17 19:10 Blood Pressure 148/85 H 05/21/17 19:10 O2 Sat (%) 96 05/21/17 19:10 O2 Delivery Mode Room Air Allergies/Adverse Reactions: No Known Allergies Allergy (Verified 01/30/17 17:01) Home Medications: Medication Instructions Recorded Carvedilol [Coreg (*)] 12.5 mg PO BID 09/20/15 Empagliflozin [Jardiance] 25 mg PO DAILY 09/20/15 FLUoxetine [Prozac 20 MG (*)] 60 mg PO DAILY 09/20/15 Multivitamins [Multivitamin (*)] 1 each PO DAILY 09/20/15 [place]-3 Fatty Acids [Fish Oil 1000 1,000 mg PO DAILY 09/20/15 mg (*)] Rosuvastatin Calcium [Crestor 40mg 40 mg PO HS 09/20/15 (*)] Zolpidem Tartrate [Ambien 5MG (*)] 5 mg PO HS 09/20/15 Promethazine HCl [Phenergan 25mg 25 mg PO Q6 PRN #30 tab 01/27/16 (*)] Hydrocodone/Acetaminophen [[place] 1 tab PO Q6H PRN 11/03/16 5/325 (*)] Hyoscyamine Sulfate [Levsin, 0.125 mg PO Q6 PRN 11/03/16 Hyomax-Sl 0.125 mg (*)] Lisinopril 10 mg PO DAILY 11/03/16 buPROPion XL [Wellbutrin 150mg XL] 150 mg PO DAILY 11/03/16 Insulin Glargine [Lantus 100 60 units SC DAILY 01/30/17 UNITS/ML (*)] Prochlorperazine Maleate 10 mg PO TID PRN 01/30/17 [Compazine 10mg (*)] Pantoprazole Sodium [Protonix 40mg 40 mg PO DAILY #1 tab 02/02/17 (*)] Sucralfate [Carafate 1gm/10ml Oral 1 gm PO ACHS #1000 ml 02/02/17 Liquid (*)] oxyCODONE IR [Oxycodone Ir (*)] 5 mg PO Q6 PRN #20 tab 02/02/17 Medical Decision Making - Diagnostics Imaging Results: Imaging Impressions Cervical Spine CT 05/21/17 19:30 Impression: There is no acute intracranial abnormality identified on this unenhanced CT evaluation. UNENHANCED CT SCAN OF THE CERVICAL SPINE Technique: A multidetector unenhanced helical CT scan was obtained from the clivus caudally through the upper thoracic spine, with images reformatted at 1.50 mm increments, and are reviewed in soft tissue, bone, and lung windows. Parasagittal and paracoronal reconstructed images are reviewed on the workstation. The DFOV is 17.8 cm. A dose reduction protocol was used. Findings: As on preceding studies, there is exuberant ossification involving the anterior longitudinal ligament and/or bridging ventral syndesmophytes suggesting either DISH or ankylosing spondylitis, from the level of C3-T3. There is a dorsal disk osteophyte complex seen at C4-C5 and C5-C6, and there is ossification of the nuchal ligament at the C4-C5 level. A mild levo-cervical scoliosis is observed. The cervical vertebral body heights, posterior alignments , and the disk spaces are relatively preserved. There is no acute fracture, or facet malalignment. The interspinous distances are normal. The craniocervical junction is normal. The atlantoaxial lateral mass alignment is normal. The base and the tip of the dens are normal. There is no prevertebral or epidural hematoma identified. The prevertebral soft tissues are normal, as are the lung apices. At the C1-C2 level, there is narrowing of the predental space and some osseous hypertrophy at the anterior atlantoaxial articulation. There is no central canal stenosis. At the C2-C3 level, there is asymmetric (left greater than right) facet hypertrophy with uncovertebral degenerative spondylosis resulting in moderate left and mild right neural foraminal stenosis. The central canal remains patent. At the C3-C4 level, there is mild bilateral facet hypertrophy with mild uncovertebral degenerative spondylosis resulting in very mild right neural foraminal stenosis, and no significant central canal stenosis. At the C4-C5 level, a dorsal osteophyte versus partial ossification of the posterior longitudinal ligament results in a [id number] degree of central canal stenosis. There is mild bilateral facet hypertrophy, and mild right neural foraminal stenosis. At the C5-C6 level, there is mild bilateral facet hypertrophy. Uncovertebral degenerative osteophytes result in severe left and moderate right neural foraminal stenosis. There is a moderate left paracentral canal stenosis secondary to dorsal osteophyte formation. At the C6-C7 level, there is uncovertebral degenerative spondylosis and facet hypertrophy, resulting in a [id number] degree of left neural foraminal stenosis. The right neural foramen and the central canal remain relatively patent. The C7-T1 level is within normal limits. Impression: 1. DISH/ of the cervical spine, with no acute fracture or malalignment. 2. Multilevel degenerative features, as above-detailed. If there is further clinical concern regarding the patient's symptoms, correlative MR imaging could be considered, if otherwise not contraindicated. Findings were discussed with JESIKA FARMER MD at 20:15, on 05/21/2017. Head CT 05/21/17 19:30 Impression: There is no acute intracranial abnormality identified on this unenhanced CT evaluation. UNENHANCED CT SCAN OF THE CERVICAL SPINE Technique: A multidetector unenhanced helical CT scan was obtained from the clivus caudally through the upper thoracic spine, with images reformatted at 1.50 mm increments, and are reviewed in soft tissue, bone, and lung windows. Parasagittal and paracoronal reconstructed images are reviewed on the workstation. The DFOV is 17.8 cm. A dose reduction protocol was used. Findings: As on preceding studies, there is exuberant ossification involving the anterior longitudinal ligament and/or bridging ventral syndesmophytes suggesting either DISH or ankylosing spondylitis, from the level of C3-T3. There is a dorsal disk osteophyte complex seen at C4-C5 and C5-C6, and there is ossification of the nuchal ligament at the C4-C5 level. A mild levo-cervical scoliosis is observed. The cervical vertebral body heights, posterior alignments , and the disk spaces are relatively preserved. There is no acute fracture, or facet malalignment. The interspinous distances are normal. The craniocervical junction is normal. The atlantoaxial lateral mass alignment is normal. The base and the tip of the dens are normal. There is no prevertebral or epidural hematoma identified. The prevertebral soft tissues are normal, as are the lung apices. At the C1-C2 level, there is narrowing of the predental space and some osseous hypertrophy at the anterior atlantoaxial articulation. There is no central canal stenosis. At the C2-C3 level, there is asymmetric (left greater than right) facet hypertrophy with uncovertebral degenerative spondylosis resulting in moderate left and mild right neural foraminal stenosis. The central canal remains patent. At the C3-C4 level, there is mild bilateral facet hypertrophy with mild uncovertebral degenerative spondylosis resulting in very mild right neural foraminal stenosis, and no significant central canal stenosis. At the C4-C5 level, a dorsal osteophyte versus partial ossification of the posterior longitudinal ligament results in a [id number] degree of central canal stenosis. There is mild bilateral facet hypertrophy, and mild right neural foraminal stenosis. At the C5-C6 level, there is mild bilateral facet hypertrophy. Uncovertebral degenerative osteophytes result in severe left and moderate right neural foraminal stenosis. There is a moderate left paracentral canal stenosis secondary to dorsal osteophyte formation. At the C6-C7 level, there is uncovertebral degenerative spondylosis and facet hypertrophy, resulting in a [id number] degree of left neural foraminal stenosis. The right neural foramen and the central canal remain relatively patent. The C7-T1 level is within normal limits. Impression: 1. DISH/ of the cervical spine, with no acute fracture or malalignment. 2. Multilevel degenerative features, as above-detailed. If there is further clinical concern regarding the patient's symptoms, correlative MR imaging could be considered, if otherwise not contraindicated. Findings were discussed with JESIKA FARMER MD at 20:15, on 05/21/2017. Imaging: Discussed imaging studies w/ scallop binder Radiologist, I viewed and interpreted images myself ED Course/Re-evaluation: The patient is a 76 y/o male with a history of cardiac stents, GI bleed, hypertension, Type II Diabetes, and DISH arriving via EMS after falling on his left side and hitting his head today. Head and c-spine CT ordered. 2015: Spoke with radiologist regarding this patient's CT's. There are no acute findings, no cervical spine fracture. His findings are consistent with DISH. Previous CT was available for comparison. 2054: Reassessed patient and discussed imaging findings. Patient will be walked to evaluate his gait. He had difficulty ambulating with his cane. 2149: Reassessed patient, he requires assist for ambulation. He does have a walker at home and a cane with him. As per HPI, he recently started physical therapy to work on his gait and his balance. His reports this is not his baseline gait. She does not feel comfortable caring for him at home and has had difficulty recently due to the level of care he requires. He would like to be admitted as he does not feel steady on his feet and has frequent falls. They live in a 2 story home and he has to climb stairs to get to the bedroom. He understands that he might need inpatient rehabilitation. I do not find evidence of an acute injury that would result in a change in his gait. It seems that his fall was a mechanical fall with no preceding symptoms. There is nothing in his history to suggest infection. 2203: Consulted hospitalist service, Dr. Gonzalez accepts admission of this patient. - Data Points Laboratory Results: 05/21/17 20:55 POC Glucose 88 mg/dL mg/dL (70-100) Point of Care Test Results: 05/21/17 20:55 POC Glucose 88 Departure - Departure Disposition: [facility] Inpatient Acute Clinical Impression: Gait difficulty, Frequent falls, Abrasion Fall Qualifiers: Encounter type: initial encounter Qualified Code(s): W19.XXXA - Unspecified fall, initial encounter Condition: Fair Report Scribed for: Jesika Farmer Report Scribed by: Maile Franco Date of Report: 05/21/17 Time of Report: 19:16 Physician Review and Approval Statement: 05/21/17 23:42 Portions of this note were transcribed by the medical social consultant. I, Dr. Jesika Farmer, personally performed the history, physical exam, and medical decision- making; and confirmed the accuracy of the information in the transcribed note.
[2017-05-21] MEDS ORDERED: ACETAMINOPHEN 325 MG TAB PO PRN (22:07)
[2017-05-21] MEDS ORDERED: ONDANSETRON DISINTEGRATING 4 MG TAB PO PRN (22:07)
--- NOTE | 2017-05-21 22:55 | PDGENHP ---
History and Physical - Chief Complaint Mechanical fall - History of Present Illness 76 yo M w/ hx of CAD, PUD, HTN, T2DM, and DISH presents to ED after mechanical fall. Patient reports that he slipped on some ice while exiting his [place] today and injured his left hand and lightly hit his head. He denies any serious injury as a result of these falls. However, the fall today raised already existing concern about his ability to ambulate. The patient has been suffering from a steady decline in function over the last several months. He underwent a stay in [facility] last year that was helpful. Over the last few weeks his gait instability has worsened to the point that he and his feel he cannot function at home. He denies any symptoms of acute illness at this time. History Information - Allergies/Home Medication List Allergies/Adverse Reactions: No Known Allergies Allergy (Verified 01/30/17 17:01) Home Medications: Carvedilol [Coreg (*)] 12.5 mg PO BID 09/20/15 [Last Taken 01/29/17] Empagliflozin [Jardiance] 25 mg PO DAILY 09/20/15 [Last Taken 01/29/17] FLUoxetine [Prozac 20 MG (*)] 60 mg PO DAILY 09/20/15 [Last Taken 01/29/17] Multivitamins [Multivitamin (*)] 1 each PO DAILY 09/20/15 [Last Taken 01/29/17] [place]-3 Fatty Acids [Fish Oil 1000 mg (*)] 1,000 mg PO DAILY 09/20/15 [Last Taken 01/29/17] Rosuvastatin Calcium [Crestor 40mg (*)] 40 mg PO HS 09/20/15 [Last Taken ] Zolpidem Tartrate [Ambien 5MG (*)] 5 mg PO HS 09/20/15 [Last Taken 01/29/17] Hydrocodone/Acetaminophen [[place] 5/325 (*)] 1 tab PO Q6H PRN 11/03/16 [Last Taken 01/29/17] Hyoscyamine Sulfate [Levsin, Hyomax-Sl 0.125 mg (*)] 0.125 mg PO Q6 PRN [Last Taken 01/29/17] Lisinopril 10 mg PO DAILY 11/03/16 [Last Taken 01/29/17] buPROPion XL [Wellbutrin 150mg XL] 150 mg PO DAILY 11/03/16 [Last Taken 01/29/17 ] Insulin Glargine [Lantus 100 UNITS/ML (*)] 60 units SC DAILY 01/30/17 [Last Taken 01/30/17] Prochlorperazine Maleate [Compazine 10mg (*)] 10 mg PO TID PRN 01/30/17 [Last Taken 01/30/17] I have personally reviewed and updated: family history, medical history - Past Medical History arthritis, coronary artery disease, diabetes type 2 Additional medical history: DISH - Surgical History Reports: cholecystectomy - Family History Positive for: cancer - Social History Smoking Status: Never smoked Review of Systems Review of Systems: ROS: 10pt was reviewed & negative except for what was stated in HPI & below Physical Exam Physical Exam: Temp Pulse Resp BP Pulse Ox 36.6 C 82 18 141/76 H 96 05/21/17 22:00 05/21/17 22:00 05/21/17 22:00 05/21/17 22:00 05/21/17 22:00 Constitutional: no apparent distress, not in pain Eyes: PERRL, EOMI Ears, Nose, Mouth, Throat: moist mucous membranes, no oral mucosal ulcers Cardiovascular: regular rate and rhythym, systolic murmur Respiratory: no respiratory distress, clear to auscultation Gastrointestinal: normoactive bowel sounds, soft, non-tender abdomen Skin: warm, other (Small abrasion left hand) Neurologic: AAOx3, CN II-XII Intact Psychiatric: interacting appropriately, not anxious Lab Data & Imaging Review POC Glucose 88 mg/dL (70-100) 05/21/17 20:55 Imaging Review: Imaging Impressions Cervical Spine CT 05/21/17 19:30 Impression: There is no acute intracranial abnormality identified on this unenhanced CT evaluation. UNENHANCED CT SCAN OF THE CERVICAL SPINE Technique: A multidetector unenhanced helical CT scan was obtained from the clivus caudally through the upper thoracic spine, with images reformatted at 1.50 mm increments, and are reviewed in soft tissue, bone, and lung windows. Parasagittal and paracoronal reconstructed images are reviewed on the workstation. The DFOV is 17.8 cm. A dose reduction protocol was used. Findings: As on preceding studies, there is exuberant ossification involving the anterior longitudinal ligament and/or bridging ventral syndesmophytes suggesting either DISH or ankylosing spondylitis, from the level of C3-T3. There is a dorsal disk osteophyte complex seen at C4-C5 and C5-C6, and there is ossification of the nuchal ligament at the C4-C5 level. A mild levo-cervical scoliosis is observed. The cervical vertebral body heights, posterior alignments , and the disk spaces are relatively preserved. There is no acute fracture, or facet malalignment. The interspinous distances are normal. The craniocervical junction is normal. The atlantoaxial lateral mass alignment is normal. The base and the tip of the dens are normal. There is no prevertebral or epidural hematoma identified. The prevertebral soft tissues are normal, as are the lung apices. At the C1-C2 level, there is narrowing of the predental space and some osseous hypertrophy at the anterior atlantoaxial articulation. There is no central canal stenosis. At the C2-C3 level, there is asymmetric (left greater than right) facet hypertrophy with uncovertebral degenerative spondylosis resulting in moderate left and mild right neural foraminal stenosis. The central canal remains patent. At the C3-C4 level, there is mild bilateral facet hypertrophy with mild uncovertebral degenerative spondylosis resulting in very mild right neural foraminal stenosis, and no significant central canal stenosis. At the C4-C5 level, a dorsal osteophyte versus partial ossification of the posterior longitudinal ligament results in a [id number]-[id number] degree of central canal stenosis. There is mild bilateral facet hypertrophy, and mild right neural foraminal stenosis. At the C5-C6 level, there is mild bilateral facet hypertrophy. Uncovertebral degenerative osteophytes result in severe left and moderate right neural foraminal stenosis. There is a moderate left paracentral canal stenosis secondary to dorsal osteophyte formation. At the C6-C7 level, there is uncovertebral degenerative spondylosis and facet hypertrophy, resulting in a wsdexlcu-rn-gokyuf degree of left neural foraminal stenosis. The right neural foramen and the central canal remain relatively patent. The C7-T1 level is within normal limits. Impression: 1. DISH/ of the cervical spine, with no acute fracture or malalignment. 2. Multilevel degenerative features, as above-detailed. If there is further clinical concern regarding the patient's symptoms, correlative MR imaging could be considered, if otherwise not contraindicated. Findings were discussed with JESIKA FARMER MD at 20:15, on 05/21/2017. Head CT 05/21/17 19:30 Impression: There is no acute intracranial abnormality identified on this unenhanced CT evaluation. UNENHANCED CT SCAN OF THE CERVICAL SPINE Technique: A multidetector unenhanced helical CT scan was obtained from the clivus caudally through the upper thoracic spine, with images reformatted at 1.50 mm increments, and are reviewed in soft tissue, bone, and lung windows. Parasagittal and paracoronal reconstructed images are reviewed on the workstation. The DFOV is 17.8 cm. A dose reduction protocol was used. Findings: As on preceding studies, there is exuberant ossification involving the anterior longitudinal ligament and/or bridging ventral syndesmophytes suggesting either DISH or ankylosing spondylitis, from the level of C3-T3. There is a dorsal disk osteophyte complex seen at C4-C5 and C5-C6, and there is ossification of the nuchal ligament at the C4-C5 level. A mild levo-cervical scoliosis is observed. The cervical vertebral body heights, posterior alignments , and the disk spaces are relatively preserved. There is no acute fracture, or facet malalignment. The interspinous distances are normal. The craniocervical junction is normal. The atlantoaxial lateral mass alignment is normal. The base and the tip of the dens are normal. There is no prevertebral or epidural hematoma identified. The prevertebral soft tissues are normal, as are the lung apices. At the C1-C2 level, there is narrowing of the predental space and some osseous hypertrophy at the anterior atlantoaxial articulation. There is no central canal stenosis. At the C2-C3 level, there is asymmetric (left greater than right) facet hypertrophy with uncovertebral degenerative spondylosis resulting in moderate left and mild right neural foraminal stenosis. The central canal remains patent. At the C3-C4 level, there is mild bilateral facet hypertrophy with mild uncovertebral degenerative spondylosis resulting in very mild right neural foraminal stenosis, and no significant central canal stenosis. At the C4-C5 level, a dorsal osteophyte versus partial ossification of the posterior longitudinal ligament results in a pecu-ur-xniowrvv degree of central canal stenosis. There is mild bilateral facet hypertrophy, and mild right neural foraminal stenosis. At the C5-C6 level, there is mild bilateral facet hypertrophy. Uncovertebral degenerative osteophytes result in severe left and moderate right neural foraminal stenosis. There is a moderate left paracentral canal stenosis secondary to dorsal osteophyte formation. At the C6-C7 level, there is uncovertebral degenerative spondylosis and facet hypertrophy, resulting in a kklkvxmf-hc-lhdqhb degree of left neural foraminal stenosis. The right neural foramen and the central canal remain relatively patent. The C7-T1 level is within normal limits. Impression: 1. DISH/ of the cervical spine, with no acute fracture or malalignment. 2. Multilevel degenerative features, as above-detailed. If there is further clinical concern regarding the patient's symptoms, correlative MR imaging could be considered, if otherwise not contraindicated. Findings were discussed with JESIKA FARMER MD at 20:15, on 05/21/2017. Assessment & Plan Assessment: 76 yo M w/ CAD, DM, HTN, and DISH presents after a fall as a result of progressive functional decline at home.. Plan: 1. Fall, progressive gait instability - Patient has been suffering from progressive deterioration in function for several months as a result of DISH. He experienced a fall on the day of admission that prompted he and his to recognize the fact that he is not safe at home in his current condition. Imaging studies in the ED were not notable for any acute injuries. - PT/OT/CM evaluations ordered 2. Hx CAD - With stents placed within the last year by Dr. Resendiz. On BB, statin, and Plavix currently; no statin due to recent dx of gastritis and UGIB. 3. IDDM - Takes insulin glargine 40 u qAM as well as Jardiance. - Continue insulin glargine 40 u qAM + SSI while inpatient 4. PUD - With recent UGIB; takes PPI and H2 delilah. Denies current BRBPR or melena. 5. 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 Diet - Regular Code - Full Ppx - SCDs Dispo - Admit to inpatient status noting inability to return home in a safe manner due to high fall risk.
[2017-05-22] MEDS: ACETAMINOPHEN 500 MG TAB PO PRN (00:23)
[2017-05-22] MEDS ORDERED: D25W 2.5 GM/10 ML SYR IVP PRN (02:06)
[2017-05-22 05:33] LABS: PLATELET COUNT 263 10^3/uL (150-400)
[2017-05-22] MEDS ORDERED: ENOXAPARIN 30 MG/0.3 ML SYR SC SCH (09:00)
[2017-05-22] MEDS: INSULIN LISPRO 100 UNIT/ML SC SCH ×3 (09:01→17:38)
[2017-05-22] MEDS: INSULIN GLARGINE 100 UNITS/ML UNIT SC SCH (09:18)
[2017-05-22] MEDS ORDERED: NON-FORMULARY NEW DRUG (Empagliflozin [Jardiance] 25 MG) PO SCH (11:00)
--- NOTE | 2017-05-22 11:11 | PDMN ---
Medical Necessity Medical necessity: Pt meets IP criteria per MD; est los >2 mn for eval/tx of long-standing gait difficulty & progressively worsening balance resulting in mechanical fall; pt is not safe to return home in his current condition; admit for therapies & dc planning; hx DISH, CAD, diabetes & HTN; per H&P & order
[2017-05-22] MEDS: FLUoxetine 20 MG CAP PO SCH (12:18)
[2017-05-22] MEDS: CLOPIDOGREL BISULFATE 75 MG TAB PO SCH (12:19)
[2017-05-22] MEDS: CARVEDILOL 25 MG TAB PO SCH ×2 (12:19→20:26)
[2017-05-22] MEDS: ONDANSETRON 4 MG/2 ML VIAL IVP PRN ×2 (13:18→17:30)
--- NOTE | 2017-05-22 14:27 | HOSPPROG ---
Hospitalist Progress Note Assessment/Plan: 76 yo M w/ CAD, DM, HTN, and DISH presents after a fall as a result of progressive functional decline at home. First encounter, chart reviewed. D/W CM. Plan: 1. Fall, progressive gait instability - -Patient has been suffering from progressive deterioration in function for several months as a result of DISH. -He experienced a fall on the day of admission that prompted he and his to recognize the fact that he is not safe at home in his current condition. -Imaging studies in the ED were not notable for any acute injuries. -PT/OT/CM evaluations ordered 2. Hx CAD - -With stents placed within the last year by Dr. Resendiz. On BB, statin, and Plavix currently; no statin due to recent dx of gastritis and UGIB. 3. IDDM - -Takes insulin glargine 40 u qAM as well as Jardiance. -Continue insulin glargine 40 u qAM + SSI while inpatient 4. PUD - -With recent UGIB; takes PPI and H2 edlilah. Denies current BRBPR or melena. 5. 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 6. Weakness/lethargy -pt feels more tired then normal -will look further for possible etiol -check UA, etc Diet - Regular Code - Full Ppx - SCDs Dispo - Admit to inpatient status noting inability to return home in a safe manner due to high fall risk. Subjective: Feels very tired today. More then normal. Objective: Vital Signs Temp Pulse Resp BP Pulse Ox 36.6 C 96 16 136/79 H 97 05/22/17 12:26 05/22/17 12:26 05/22/17 12:26 05/22/17 12:26 05/22/17 12:26 Laboratory Results 05/22/17 04:54 05/22/17 04:54 05/21/17 05/22/17 05/23/17 05:59 05:59 05:59 Intake Total 0 Output Total 1200 Balance -1200 - Physical Exam Constitutional: appears nourished, not in pain, chronically ill appearing Eyes: PERRL, anicteric sclera, EOMI Ears, Nose, Mouth, Throat: moist mucous membranes, ears appear normal, hard of hearing Cardiovascular: regular rate and rhythym, No JVD, No edema Respiratory: no respiratory distress, no rales or rhonchi, reduced air movement Gastrointestinal: normoactive bowel sounds, No tenderness, No ascites Skin: warm, normal color, No mottled Musculoskeletal: normal joint ROM, no joint effusions, generalized weakness Neurologic: AAOx3 Psychiatric: interacting appropriately, not anxious, not encephalopathic, thought process linear ICD10 Worksheet Patient Problems: Problems Problem Status Onset STEMI (ST elevation myocardial infarction) Acute Chest pain Acute Shortness of breath Acute CVA (cerebral vascular accident) Acute Upper GI hemorrhage Acute Fall Acute Gait difficulty Acute Frequent falls Acute Abrasion Acute
[2017-05-22] MEDS: PANTOPRAZOLE SODIUM 40 MG TAB PO SCH (17:31)
[2017-05-22] MEDS: ROSUVASTATIN CALCIUM 40 MG TAB PO SCH (20:25)
[2017-05-22] MEDS: FAMOTIDINE 20 MG TAB PO SCH (20:26)
--- NOTE | 2017-05-22 20:50 | ASMTLACE ---
LACE Length of stay for Answers: 2 days current admission Acuity / Level of Answers: Yes Care: Did the patient have an inpatient admission? Comorbidities - select Answers: Diabetes (uncontrolled or all that apply controlled) History of falls Peptic ulcer disease # of Emergency department Answers: 1-2 visits in the last 6 months Score: 12 Date Signed: 05/22/2017 08:50 PM Electronically Signed By:Carole Vo RN
[2017-05-22] MEDS ORDERED: NON-FORMULARY NEW DRUG (Ranitidine Hcl [Zantac] 300 MG) PO SCH (21:00)
[2017-05-22] MEDS: HYOSCYAMINE SULFATE 0.125 MG TAB PO PRN (21:04)
[2017-05-23] MEDS: ONDANSETRON 4 MG/2 ML VIAL IVP PRN ×2 (00:02→11:34)
[2017-05-23] MEDS: ACETAMINOPHEN 500 MG TAB PO PRN ×2 (00:07→23:02)
[2017-05-23 08:44] LABS: PLATELET COUNT 254 10^3/uL (150-400)
[2017-05-23] MEDS ORDERED: INSULIN GLARGINE 40 UNIT SC SCH (09:00)
[2017-05-23] MEDS ORDERED: Herbals/Supplements -Info Only PO SCH (09:00)
[2017-05-23] MEDS: INSULIN LISPRO 100 UNIT/ML SC SCH ×3 (09:08→17:55)
[2017-05-23] MEDS: FLUoxetine 20 MG CAP PO SCH (09:11)
[2017-05-23] MEDS: CARVEDILOL 25 MG TAB PO SCH ×2 (09:11→20:42)
[2017-05-23] MEDS: INSULIN GLARGINE 100 UNITS/ML UNIT SC SCH (09:11)
[2017-05-23] MEDS: CLOPIDOGREL BISULFATE 75 MG TAB PO SCH (09:12)
[2017-05-23] MEDS: ENOXAPARIN 40 MG/0.4 ML SYR SC SCH (09:13)
[2017-05-23] MEDS: buPROPion SR 150 MG TAB PO SCH (09:13)
[2017-05-23] MEDS: MULTIVITAMINS 1 EACH TAB PO SCH (09:13)
[2017-05-23] MEDS: LISINOPRIL 10 MG TAB PO SCH (09:13)
[2017-05-23] MEDS: TAMSULOSIN HCL 0.4 MG CAP PO SCH (09:17)
[2017-05-23] MEDS: PANTOPRAZOLE SODIUM 40 MG TAB PO SCH ×2 (09:58→17:40)
--- NOTE | 2017-05-23 10:09 | ASMTCMCOM ---
CM Note CM Note Notes: Met with patient to discuss discharge options. Physical Therapy has recommended Inpatient Rehab, DIRECTOR OF STRATEGIC SOURCING placed order. [employer] called and spoke with Kennedi to inform of order. If patient does not qualify for Inpatient rehab, Case Management and patient discussed SNF options as well and is open to number one choice to [facility], number 2 choice [facility]. Referrals sent to [facility] and [facility] via [employer]. Left voicemail for Lew at [facility] and will discuss with Sindhu at [facility]. Still awaiting call back from Kennedi at inpatient rehab regarding ability to accept. PASSR to be completed by JULI. CM will follow. Current D/C plan: [facility] Inpatient rehab vs. [facility] vs. [facility]. Date Signed: 05/22/2017 03:57 PM Electronically Signed By:Vickie Camacho
[2017-05-23] MEDS ORDERED: PROMETHAZINE HCL 25 MG/ML INJ IVP PRN (11:37)
[2017-05-23] MEDS ORDERED: CYCLOBENZAPRINE 10 MG TAB PO PRN (11:56)
[2017-05-23] MEDS: PROMETHAZINE HCL 25 MG TAB PO PRN ×2 (12:30→20:44)
--- NOTE | 2017-05-23 13:50 | HOSPPROG ---
Hospitalist Progress Note Assessment/Plan: 76 yo M w/ CAD, DM, HTN, and DISH presents after a fall as a result of progressive functional decline at home. D/W CM. Plan: 1. Fall, progressive gait instability - -needs therapy -Patient has been suffering from progressive deterioration in function for several months as a result of DISH. -He experienced a fall on the day of admission that prompted he and his to recognize the fact that he is not safe at home in his current condition. -Imaging studies in the ED were not notable for any acute injuries. -PT/OT/CM evaluations ordered 2. Hx CAD - -With stents placed within the last year by Dr. Resendiz. On BB, and Plavix currently; no statin due to recent dx of gastritis and UGIB. 3. IDDM - -Takes insulin glargine 40 u qAM as well as Jardiance. -Continue insulin glargine 40 u qAM + SSI while inpatient 4. PUD - -With recent UGIB; takes PPI and H2 delilah. Denies current BRBPR or melena. 5. 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 -needs rehab 6. Weakness/lethargy -pt feels more tired then normal -will look further for possible etiol Diet - Regular Code - Full Ppx - SCDs Dispo - Needs rehab. D/W CM Cont evaluation Subjective: Feeling tired and nauseous. Better then yesterday. Objective: Vital Signs Temp Pulse Resp BP Pulse Ox 36.7 C 72 17 136/68 H 93 05/23/17 07:24 05/23/17 09:11 05/23/17 07:24 05/23/17 09:13 05/23/17 07:24 Laboratory Results 05/23/17 08:30 05/23/17 08:30 05/22/17 05/23/17 05/24/17 05:59 05:59 05:59 Intake Total 0 750 Output Total 1200 900 Balance -1200 -150 - Physical Exam Constitutional: appears nourished, chronically ill appearing Eyes: PERRL, anicteric sclera Ears, Nose, Mouth, Throat: moist mucous membranes, hearing normal Cardiovascular: No JVD, No edema Respiratory: no respiratory distress, reduced air movement Gastrointestinal: No tenderness, No ascites Skin: warm, normal color Musculoskeletal: no joint effusions, generalized weakness Neurologic: AAOx3 Psychiatric: interacting appropriately, not anxious, not encephalopathic ICD10 Worksheet Patient Problems: Problems Problem Status Onset STEMI (ST elevation myocardial infarction) Acute Chest pain Acute Shortness of breath Acute CVA (cerebral vascular accident) Acute Upper GI hemorrhage Acute Fall Acute Gait difficulty Acute Frequent falls Acute Abrasion Acute
[2017-05-23] MEDS: HYOSCYAMINE SULFATE 0.125 MG TAB PO PRN (17:55)
[2017-05-23] MEDS: FAMOTIDINE 20 MG TAB PO SCH (20:42)
[2017-05-23] MEDS: DOCUSATE SODIUM 100 MG CAP PO PRN (20:42)
[2017-05-23] MEDS: ROSUVASTATIN CALCIUM 40 MG TAB PO SCH (20:42)
[2017-05-24] MEDS: MELATONIN 3 MG TAB PO SCH ×2 (02:10→20:57)
[2017-05-24] MEDS: FLUoxetine 20 MG CAP PO SCH (11:08)
[2017-05-24] MEDS: INSULIN GLARGINE 100 UNITS/ML UNIT SC SCH (11:08)
[2017-05-24] MEDS: ENOXAPARIN 40 MG/0.4 ML SYR SC SCH (11:08)
[2017-05-24] MEDS: MULTIVITAMINS 1 EACH TAB PO SCH (11:09)
[2017-05-24] MEDS: INSULIN LISPRO 100 UNIT/ML SC SCH ×3 (11:09→15:42)
[2017-05-24] MEDS: CLOPIDOGREL BISULFATE 75 MG TAB PO SCH (11:09)
[2017-05-24] MEDS: PANTOPRAZOLE SODIUM 40 MG TAB PO SCH ×2 (11:09→15:42)
[2017-05-24] MEDS: buPROPion SR 150 MG TAB PO SCH (11:09)
[2017-05-24] MEDS: CARVEDILOL 25 MG TAB PO SCH ×2 (11:10→20:57)
[2017-05-24] MEDS: TAMSULOSIN HCL 0.4 MG CAP PO SCH (11:10)
[2017-05-24] MEDS: LISINOPRIL 10 MG TAB PO SCH (11:10)
--- NOTE | 2017-05-24 12:42 | ASMTCMCOM ---
CM Note CM Note Notes: [facility] reports [facility] has no bed availability. Pt does not qualify for [facility] inpatient rehab. D/c plan is [facility] when medically stable Date Signed: 05/24/2017 12:42 PM Electronically Signed By:EUGENIE Duff
[2017-05-24] MEDS: PROMETHAZINE HCL 25 MG TAB PO PRN (12:48)
--- NOTE | 2017-05-24 12:50 | HOSPPROG ---
Hospitalist Progress Note Assessment/Plan: 76 yo M w/ CAD, DM, HTN, and DISH presents after a fall as a result of progressive functional decline at home. 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 Likely to SNF tomorrow. Subjective: Glenn has no complaints. He's worried about himself cognitively. Objective: Vital Signs Temp Pulse Resp BP Pulse Ox 36.7 C 63 18 122/54 H 90 L 05/24/17 07:36 05/24/17 07:36 05/24/17 07:36 05/24/17 07:36 05/24/17 07:36 Laboratory Results 05/23/17 08:30 05/23/17 08:30 05/23/17 05/24/17 05/25/17 05:59 05:59 05:59 Intake Total 750 500 Output Total 900 Balance -150 500 - Physical Exam Constitutional: no apparent distress, appears nourished, not in pain Eyes: PERRL Ears, Nose, Mouth, Throat: hearing normal Respiratory: no respiratory distress Gastrointestinal: normoactive bowel sounds Skin: warm Musculoskeletal: generalized weakness Neurologic: AAOx3 Psychiatric: interacting appropriately, not anxious, not encephalopathic ICD10 Worksheet Patient Problems: Problems Problem Status Onset Abrasion Acute Fall Acute Frequent falls Acute Gait difficulty Acute CVA (cerebral vascular accident) Acute Chest pain Acute STEMI (ST elevation myocardial infarction) Acute Shortness of breath Acute Upper GI hemorrhage Acute
[2017-05-24] MEDS ORDERED: D5W 1/2 NS 500 ML IV SCH (15:00)
[2017-05-24] MEDS: DOCUSATE SODIUM 100 MG CAP PO PRN (17:55)
[2017-05-24] MEDS: ACETAMINOPHEN 500 MG TAB PO PRN (17:55)
[2017-05-24] MEDS: HYOSCYAMINE SULFATE 0.125 MG TAB PO PRN (17:56)
[2017-05-24] MEDS: FAMOTIDINE 20 MG TAB PO SCH (20:57)
[2017-05-24] MEDS: ROSUVASTATIN CALCIUM 40 MG TAB PO SCH (20:57)
[2017-05-25] MEDS: ENOXAPARIN 40 MG/0.4 ML SYR SC SCH (10:43)
[2017-05-25] MEDS: TAMSULOSIN HCL 0.4 MG CAP PO SCH (10:44)
[2017-05-25] MEDS: CARVEDILOL 25 MG TAB PO SCH ×2 (10:44→20:38)
[2017-05-25] MEDS: FLUoxetine 20 MG CAP PO SCH (10:44)
[2017-05-25] MEDS: ACETAMINOPHEN 500 MG TAB PO PRN ×2 (10:45→20:37)
[2017-05-25] MEDS: buPROPion SR 150 MG TAB PO SCH (10:45)
[2017-05-25] MEDS: INSULIN LISPRO 100 UNIT/ML SC SCH ×3 (10:46→18:03)
[2017-05-25] MEDS: MULTIVITAMINS 1 EACH TAB PO SCH (10:46)
[2017-05-25] MEDS: PANTOPRAZOLE SODIUM 40 MG TAB PO SCH ×2 (10:46→18:07)
[2017-05-25] MEDS: CLOPIDOGREL BISULFATE 75 MG TAB PO SCH (10:46)
[2017-05-25] MEDS: LISINOPRIL 10 MG TAB PO SCH (10:47)
[2017-05-25] MEDS ORDERED: INSULIN GLARGINE 100 UNITS/ML UNIT SC SCH ×2 (11:00→12:45)
[2017-05-25] MEDS: INSULIN GLARGINE 100 UNITS/ML UNIT SC SCH ×2 (12:32→13:29)
[2017-05-25] MEDS ORDERED: POLYETHYLENE GLYCOL 3350 17 GM PKT PO PRN (12:48)
[2017-05-25] MEDS ORDERED: LACTULOSE 20 GM/30 ML UDCUP PO PRN (12:48)
[2017-05-25] MEDS ORDERED: BISACODYL 10 MG SUPP PR PRN (12:48)
[2017-05-25] MEDS ORDERED: MAGNESIUM HYDROXIDE 30 ML UDCUP PO PRN (12:48)
[2017-05-25] MEDS: SENNOSIDES/DOCUSATE SODIUM TAB PO SCH ×2 (13:26→20:38)
[2017-05-25] MEDS ORDERED: 1/2 NS 1,000 ML IV SCH (13:30)
--- NOTE | 2017-05-25 13:54 | GCON ---
[f rep st] CONSULTATION NEUROLOGY CONSULT. REFERRING PHYSICIAN: Mary Kam NP CHIEF COMPLAINT: Thought blocking. 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 He does not have any personal or family history of neurologic or neurodegenerative disorders. The patient was in [employer] buying supplies for home repair when he lost balance and fell in the parking lot, striking the side of his head or neck or shoulder. He is not sure. In any case, he was brought to the ER by some bystanders, who activated 911, and he was admitted for further stabilization. He had a head CT which showed no acute abnormalities in the ER. C-spine shows changes consistent with his previous diagnosis of DISH which is diffuse idiopathic skeletal hyperostosis. While here in the hospital, he related to the medical team that he has had multiple problems over the last year , including gastritis with weight loss, spine pain and imbalance related to his DISH syndrome, along with loss of muscle bulk in his lower extremities which exacerbates his balance as well. He also related some very brief pauses between his senses, as he has trouble thinking of the next sentence. He does not describe aphasia or profound cognitive problems. More of a thought blocking -type symptom. His labs since admission have revealed hypernatremia, 147 initially and now 148. Along with the hypernatremia on labs, he is reporting significant thirst and a feeling of restlessness. For past medical history, social history, family history, home medications, please see the History and Physical by Dr. Gonzalez. REVIEW OF SYSTEMS: Ten-point review of systems was done, only pertinent to the HPI. PHYSICAL EXAM: VITAL SIGNS: Blood pressure is 117/58, temperature 36.5, heart rate 76. GENERAL: In no acute distress. Very pleasant. NEURO: Higher mental function: He is awake and alert. He has no objective aphasia. There are some minor pauses or hesitation between sentences as he explains things to me. But, he is able to follow through with complete, coherent thoughts and stories related to his symptoms. Cranial nerve exam: Normal 2 through 7. Motor exam: He has normal strength and tone throughout. Light touch on sensory exam is normal subjectively throughout. [id number] is active bilaterally. He does have some mild action tremor in his upper extremities. IMPRESSION/PLAN: 1. Thought blocking. 2. Hypernatremia. 3. DISH syndrome. The patient's more pronounced thought blocking-type symptoms, aligned with significantly increased thirst, certainly could be symptomatic from his hypernatremia. I recommend treating his hypernatremia prior to discharge. I will discuss with Hospital Medicine regarding this. At this point, I do not recommend we add any further neurologic tests but, rather, I will follow up with him as an outpatient in 4 weeks to reassess his symptoms. Based on his clinical progress, we will make recommendations accordingly, including further testing or treatment. I do not see a single underlying neurogenic process to tie all the symptoms together. Rather, he appears to have multiple independent medical problems which are causing some decline. This includes his gastritis and DISH syndrome. The gastritis probably caused loss of lean muscle, along with the general weight loss, which exacerbated his balance instability from the DISH syndrome. We discussed this at length. The thought blocking will hopefully improve with normalization of his serum sodium. We will look forward to seeing him in the outpatient clinic in around 1 month. We will call the patient and set up that appointment. Thank you for this consultation. We will sign off and follow up as needed. Please do not hesitate to call with any questions or changes in neurologic status of this very pleasant patient. Seventy total minutes floor time today reviewing the patient's history, labs, in direct counseling with the patient, and coordination of care. /[id number]/MODL MTDD
--- NOTE | 2017-05-25 14:42 | HOSPPROG ---
Hospitalist Progress Note Assessment/Plan: The patient is a 76 with PMH diffuse idiopathic skeletal hyper ostosis who was admitted for mechanical fall. ASSESSMENT/PLAN: Gait instability Mechanical fall Encephalopathy, mild, metabolic -Neuro consulted - recs appreciated. I have coordinated care with the neurologist today. -likely 2/2 metabolic derangement. -Reassess in Neuro office in a couple weeks after metabolic abnormalities have been corrected -DC to home vs SNF vs acute Rehab Insulin-dependent diabetes Hypoglycemia, secondary to insulin -Decreased Lantus from 40 U to 25 U. -decreased sliding scale insulin to low dose. -may increase Lantus tomorrow according to a.m. blood sugar response -continue Jardiance Hypernatremia, hyperchloremic, with a free water deficit 1.2 L. -encourage po water intake. -half NS, 1 bag today at a low rate. -recheck electrolytes in the a.m. Diffuse idiopathic skeletal hyperostosis Coronary artery disease -cardiac meds- BB,ASA,ACEI History of peptic ulcer disease VTE prophylaxis: Lovenox Code Status: Full. Status: Inpatient for greater than 2 midnight stay. Disposition: Med surge with discharge anticipated in the next 1-2 days. This patient is new to me. Reviewed patient's chart/records for this visit. ____ SUBJECTIVE: Today the patient feels well. He continues to complain of gait instability. He says he normally takes between 30-40 units of Lantus daily at home. OBJECTIVE: Physical Exam: General: The patient is an elderly male who is alert and in no acute distress. HEENT: normocephalic, extraocular movements intact, conjunctivae clear. Mucous membranes dry. Neck: trachea midline, no visible masses. CV: +S1/S2, RRR, no MRG. Resp: unlabored, CTAB no RRW. Abd: soft and nondistended. Musculoskeletal: Normal muscle tone/bulk. Neuro: cranial nerves II XII grossly intact. Intact gross motor and sensory function. Psych: Appropriate mood and appropriate affect. Skin: No pallor. No petechiae. Heme/lymph: No peripheral edema at bilateral lower extremities. Labs/Imaging/Other Tests: Personally reviewed/interpreted. Sodium of 148 noted. Chloride 111. Blood sugar this morning 68. Objective: Vital Signs Temp Pulse Resp BP Pulse Ox 36.2 C 66 19 140/75 H 95 05/25/17 08:00 05/25/17 08:00 05/25/17 08:00 05/25/17 08:00 05/25/17 08:00 Laboratory Results 05/23/17 08:30 05/25/17 04:30 05/24/17 05/25/17 05/26/17 05:59 05:59 05:59 Intake Total 500 500 Balance 500 500 ICD10 Worksheet Patient Problems: Problems Problem Status Onset Abrasion Acute Fall Acute Frequent falls Acute Gait difficulty Acute CVA (cerebral vascular accident) Acute Chest pain Acute STEMI (ST elevation myocardial infarction) Acute Shortness of breath Acute Upper GI hemorrhage Acute
[2017-05-25] MEDS: ROSUVASTATIN CALCIUM 40 MG TAB PO SCH (20:34)
[2017-05-25] MEDS: FAMOTIDINE 20 MG TAB PO SCH (20:38)
[2017-05-25] MEDS: MELATONIN 3 MG TAB PO SCH (20:38)
[2017-05-25 23:03] VITALS: O2SAT 95
[2017-05-26 07:42] VITALS: BP 125/79; PULSE 60; RESP 18; TEMP 97.6
--- NOTE | 2017-05-26 09:04 | HOSPPROG ---
Hospitalist Progress Note Assessment/Plan: 76 yo M w/ CAD, DM, HTN, and DISH presents after a fall as a result of progressive functional decline at home. Today is my first encounter with the patient, chart reviewed *fall, gait instability -patient having further progressive deterioration/ has underlying DISH -xrays shows nothing acute -PT and OT seeing him -SNF *CAD hx -stents last year -BB, statin, and Plavix *hypernatremia -slightly better -will have this monitored at the SNF *IDDM -on SSI and long acting (40 units SQ in a.m.) -hypoglycemia noted during his stay -long acting dose decreased from 40 units to 25 units *PUD -hx of UGIB, on PPI and H2 delilah *Diffuse Idiopathic Skeletal Hyperostosis -this is likely the cause of his decline *Thought blocking concerns -to see Dr Matamoros in 1 month *plan. DC to [facility], will have his labs monitored. Subjective: Glenn has no complaints, Objective: Vital Signs Temp Pulse Resp BP Pulse Ox 36.4 C 60 18 125/79 H 95 05/26/17 07:39 05/26/17 07:39 05/26/17 07:39 05/26/17 07:39 05/26/17 07:39 Microbiology 05/22/17 16:10 Urine Culture - Final Unspecified Staphylococcus Epidermidis Laboratory Results 05/23/17 08:30 05/26/17 04:26 05/25/17 05/26/17 05/27/17 05:59 05:59 05:59 Intake Total 500 Balance 500 - Physical Exam Constitutional: not in pain, chronically ill appearing Eyes: PERRL Ears, Nose, Mouth, Throat: hearing normal Cardiovascular: regular rate and rhythym Respiratory: no respiratory distress Skin: warm, No normal color (pale) Musculoskeletal: generalized weakness Neurologic: AAOx3 Psychiatric: interacting appropriately, not anxious, not encephalopathic ICD10 Worksheet Patient Problems: Problems Problem Status Onset Abrasion Acute Fall Acute Frequent falls Acute Gait difficulty Acute CVA (cerebral vascular accident) Acute Chest pain Acute STEMI (ST elevation myocardial infarction) Acute Shortness of breath Acute Upper GI hemorrhage Acute
[2017-05-26] MEDS: ENOXAPARIN 40 MG/0.4 ML SYR SC SCH (09:29)
[2017-05-26] MEDS: CLOPIDOGREL BISULFATE 75 MG TAB PO SCH (09:30)
[2017-05-26] MEDS: SENNOSIDES/DOCUSATE SODIUM TAB PO SCH (09:31)
[2017-05-26] MEDS: LISINOPRIL 10 MG TAB PO SCH (09:31)
[2017-05-26] MEDS: CARVEDILOL 25 MG TAB PO SCH (09:32)
[2017-05-26] MEDS: buPROPion SR 150 MG TAB PO SCH (09:32)
[2017-05-26] MEDS: MULTIVITAMINS 1 EACH TAB PO SCH (09:34)
[2017-05-26] MEDS: TAMSULOSIN HCL 0.4 MG CAP PO SCH (09:34)
[2017-05-26] MEDS: FLUoxetine 20 MG CAP PO SCH (09:42)
[2017-05-26] MEDS ORDERED: 1/2 NS 500 ML IV SCH (10:00)
[2017-05-26] MEDS: INSULIN LISPRO 100 UNIT/ML SC SCH ×2 (10:22→13:17)
[2017-05-26] MEDS: INSULIN GLARGINE 100 UNITS/ML UNIT SC SCH (10:47)
[2017-05-26] MEDS: PANTOPRAZOLE SODIUM 40 MG TAB PO SCH (10:47)
[2017-05-26] MEDS: HYOSCYAMINE SULFATE 0.125 MG TAB PO PRN (11:22)
--- NOTE | 2017-05-26 12:27 | PDIAF ---
- Diagnosis Diagnosis: gait instability w falls, DISH, hypernatremia Code Status: Full Code - Medication Management Discharge Medications: Medications to Continue on Transfer Carvedilol [Coreg (*)] 12.5 mg PO BID 09/20/15 [Last Taken 05/21/17 09:00] Empagliflozin [Jardiance] 25 mg PO DAILY 09/20/15 [Last Taken 05/21/17] FLUoxetine [Prozac 20 MG (*)] 60 mg PO DAILY 09/20/15 [Last Taken 05/21/17] Multivitamins [Multivitamin (*)] 1 each PO DAILY 09/20/15 [Last Taken 05/21/17] Rosuvastatin Calcium [Crestor 40mg (*)] 40 mg PO HS 09/20/15 [Last Taken ] Promethazine HCl [Phenergan 25mg (*)] 25 mg PO Q6 PRN #30 tab 01/27/16 [Last Taken 05/21/17] Hyoscyamine Sulfate [Levsin, Hyomax-Sl 0.125 mg (*)] 0.125 mg PO Q6 PRN [Last Taken 05/20/17] Clopidogrel Bisulfate [Plavix (*)] 75 mg PO DAILY 05/22/17 [Last Taken 05/21/17] Herbals/Supplements -Info Only 1 ea PO DAILY 05/22/17 [Last Taken Unknown] Lisinopril [Zestril 10 mg (*)] 10 mg PO DAILY 05/22/17 [Last Taken 05/21/17] Pantoprazole Sodium [Protonix 40mg (*)] 40 mg PO BIDAC 05/22/17 [Last Taken 18:00] Ranitidine HCl [Zantac] 300 mg PO HS 05/22/17 [Last Taken 05/20/17] Tamsulosin HCl [Flomax 0.4 MG (*)] 0.4 mg PO DAILY 05/22/17 [Last Taken 05/21/17 ] buPROPion SR [Wellbutrin 150mg SR (*)] 150 mg PO DAILY 05/22/17 [Last Taken ] Acetaminophen [Tylenol ES 500 mg (*)] 1,000 mg PO TID PRN tab 05/26/17 [Last Taken Unknown] Cyclobenzaprine [Flexeril 10 MG (*)] 10 mg PO TID PRN tab 05/26/17 [Last Taken Unknown] Docusate Sodium [Colace 100 MG (*)] 100 mg PO HS PRN cap 05/26/17 [Last Taken Unknown] Insulin Glargine [Lantus Syringe] 25 units SC DAILY unit 05/26/17 [Last Taken Unknown] Melatonin [Melatonin 3 MG (*)] 6 mg PO HS tab 05/26/17 [Last Taken Unknown] Polyethylene Glycol 3350 [Miralax 17 gm (*)] 17 gm PO DAILY PRN pkt 05/26/17 [ Last Taken Unknown] Sennosides/Docusate Sodium [Senokot-S] 1 - 2 tab PO BID tab 05/26/17 [Last Taken Unknown] Discharge Medications: Refer to the Discharge Home Medication list for PRN reason. - Orders Services needed: Physical Therapy, Occupational Therapy Isolation Type: None Diet Recommendation: no restrictions on diet Diet Texture: Regular Texture Diet Additional: Lantus dose has been decreased from 40 U to 25 U due to low blood sugars. Patient needs to make an appointment and follow up with Dr. Matamoros in 1 month. Had some high sodium levels during stay but normalized prior to discharge.. - Labs/Radiology BMP Date: 05/29/16 (vidal) - Follow Up Care Current Providers and Referrals: Arielle Ellsworth MD [Medical Doctor] - As per Instructions Patient,NotPresent [Unknown] - As per Instructions Tony Matamoros MD [Medical Doctor] -
--- NOTE | 2017-05-26 12:53 | GDS ---
[f rep st] DISCHARGE SUMMARY DISCHARGE DIAGNOSES: 1. Fall with gait instability. 2. Coronary artery disease history. 3. Hypernatremia. 4. Insulin-dependent diabetes. 5. Peptic ulcer disease. 6. Diffuse idiopathic skeletal hyperostosis. 7. Thought blocking concerns. CONSULTATION: Dr. Tony Matamoros. HISTORY OF PRESENT ILLNESS: The patient is a 76-year-old gentleman with a history of coronary artery disease, diabetes, and hypertension. He presented after falling at home. He has had progressive fu nctional decline at home. He will be discharged to the [facility] facility for [facility]hab. HOSPITAL COURSE BY PROBLEM: 1. Fall, gait instability. X-ray showed nothing acute. I suspect his DISH syndrome has been causin g progressive deterioration. He will get rehab at the halfway facility. 2. Coronary artery disease history. He had stents placed last year. He is on beta delilah, statin, and Plavix. 3. Hypernatremia, resolved with fluids. Today, sodium is 144. 4. Insulin dependent diabetes. He is on sliding scale and long-acting. His long-acting dose was de creased to 25 units due to some hypoglycemia. 5. Peptic ulcer disease, history of upper GI bleed, on PPI and H2 delilah. 6. Diffuse idiopathic skeletal hyperostosis. This is likely the cause of his decline. 7. Thought blocking issues. He will further follow up with Dr. Tony Matamoros in the outpatient setting . DISCHARGE CONDITION: Stable. Blood pressure is 125/79, heart rate is 60, respiratory rate is 18, O2 saturation on room air 95%, temperature is 36.4 Celsius. MEDICATIONS AT DISCHARGE: Please see the EMR. DISCHARGE INSTRUCTIONS: 1. Follow up with Dr. Matamoros. 2. His insulin dose has been decreased. Greater than 30 minutes discharging, coordinating care. /[id number]/MODL
[2017-05-26] MEDS: ACETAMINOPHEN 500 MG TAB PO PRN (13:07)
== END 2017-05-26 14:36 | DRG 552 ==
LOC: EDUNIT# → F3N 23:31
PROVIDERS: ADMIT Student in an Organized Health Care Education/Training Program; ATTEND Student in an Organized Health Care Education/Training Program
DX: M48.12 Ankylosing hyperostosis [Forestier], cervical region (principal); E87.0 Hyperosmolality and hypernatremia; R62.7 Adult failure to thrive; R26.9 Unspecified abnormalities of gait and mobility; W19.XXXA Unspecified fall, initial encounter; E11.649 Type 2 diabetes mellitus with hypoglycemia without coma; K27.9 Peptic ulcer, site unspecified, unspecified as acute or chronic, without hemorrhage or perforation; I25.10 Atherosclerotic heart disease of native coronary artery without angina pectoris; I10 Essential (primary) hypertension; Z95.5 Presence of coronary angioplasty implant and graft; Z79.4 Long term (current) use of insulin
CPT/HCPCS: 82947-QW; 92507-GN; 92523-GN; 92610-GN; 97116-GP; 97161-GP; 97166-GO; 97535-GO; G8978-GP-CJ; G8979-GP-CI; G8987-GO-CJ; G8988-GO-CI; G8996-GN-CI; G8997-GN-CI; G8998-GN-CI; G9168-GO-CI; G9169-GN-CH; G9170-GN-CH; J1650; J1815; J2405

== ENCOUNTER 2017-08-07 05:42 | Day surgery (SDC) | payer OTHER ==
[2017-08-07] MEDS ORDERED: LR 1,000 ML IV ONE (06:00)
[2017-08-07] MEDS ORDERED: POLYMYXIN B SULFATE 500,000 UNIT/10 ML SYR IRR ONE ×2 (06:39→07:08)
[2017-08-07] MEDS ORDERED: LIDOCAINE 1% 300 MG/30 ML SDV ONE (06:39)
[2017-08-07] MEDS ORDERED: BACITRACIN 50,000 UNITS/10 ML SYR IRR ONE ×3 (06:39→08:57)
[2017-08-07] MEDS ORDERED: BUPIVACAINE 0.5% 30 ML SDV ONE (06:40)
[2017-08-07] MEDS ORDERED: ceFAZolin 2 GM/SWFI 2 GM/20 ML SYR IVP ONE (06:48)
--- NOTE | 2017-08-07 06:50 | PDHPUP ---
History & Physical Update H&P update statement: This history and physical update is based on an assessment of the patient which was completed after admission or registration (within 24 hours), but prior to the surgery/procedure. RRR CTAB H&P update: no change in patient's condition since H&P completed
--- NOTE | 2017-08-07 06:54 | PDANEPAE ---
ANE History of Present Illness 76 year old male for elbow surgery. ANE Past Medical History - Cardiovascular History Hx Hypertension: Yes Hx Arrhythmias: No Hx Chest Pain: No Hx Coronary Artery / Peripheral Vascular Disease: Yes Hx CHF / Valvular Disease: No Hx Palpitations: No Cardiovascular History Comment: STENTS X 2 - Pulmonary History Hx COPD: No Hx Asthma/Reactive Airway Disease: No Hx Recent Upper Respiratory Infection: No Hx Oxygen in Use at Home: Yes Hx Sleep Apnea: No Sleep Apnea Screening Result - Last Documented: Positive Pulmonary History Comment: CPAP AT NOC - Neurologic History Hx Cerebrovascular Accident: No Hx Seizures: No Hx Dementia: No - Endocrine History Hx Diabetes: Yes Hypothyroid: No Hyperthyroid: No Obesity: no Endocrine History Comment: IDDM type 2-stable - Renal History Hx Renal Disorders: Yes Renal History Comment: on Flomax - Liver History Hx Hepatic Disorders: No - Neurological & Psychiatric Hx Hx Neurological and Psychiatric Disorders: Yes Neurological / Psychiatric History Comment: DEPRESSION PROZAC; NAZ for low back pain-DISH (grows osteophytes on vertebrae). cervical spine -DISH - Cancer History Hx Cancer: No - Congenital Disorder History Hx Congenital Disorders: No - GI History Hx Gastrointestinal Disorders: Yes Gastrointestinal History Comment: GERD,gastritis- managed w/Rx - Other Health History Other Health History: L elbow bursitis - Chronic Pain History Chronic Pain: Yes (low back/hips) - Surgical History Prior Surgeries: Lap eduardo. INGUINAL HERNIA REPAIRS X 2. APPY age 14. BILAT QUAD TENDON REPIARS KNEES. CARDIAC STENTS X 2 2014 ANE Review of Systems Review of systems is: negative Review of Systems: - Exercise capacity Exercise capacity: <4 METS METS (RN): 3 METS ANE Patient History - Allergies Allergies/Adverse Reactions: No Known Allergies Allergy (Verified 01/30/17 17:01) - Home Medications Home medications: home medication list seen and reviewed Home Medications: Carvedilol [Coreg (*)] 12.5 mg PO BID 09/20/15 [Last Taken 08/07/17] Empagliflozin [Jardiance] 25 mg PO DAILY 09/20/15 [Last Taken 08/06/17] FLUoxetine [Prozac 20 MG (*)] 60 mg PO DAILY 09/20/15 [Last Taken 08/06/17] Multivitamins [Multivitamin (*)] 1 each PO DAILY 09/20/15 [Last Taken 08/06/17] Rosuvastatin Calcium [Crestor 40mg (*)] 40 mg PO HS 09/20/15 [Last Taken ] Hyoscyamine Sulfate [Levsin, Hyomax-Sl 0.125 mg (*)] 0.125 mg PO Q6 PRN [Last Taken 08/06/17] Clopidogrel Bisulfate [Plavix (*)] 75 mg PO DAILY 05/22/17 [Last Taken 07/31/17 18:00] Herbals/Supplements -Info Only 1 ea PO DAILY 05/22/17 [Last Taken 08/06/17] Lisinopril [Zestril 10 mg (*)] 10 mg PO DAILY 05/22/17 [Last Taken 08/06/17] Pantoprazole Sodium [Protonix 40mg (*)] 40 mg PO BIDAC 05/22/17 [Last Taken 03/15] Ranitidine HCl [Zantac] 300 mg PO HS 05/22/17 [Last Taken 08/06/17] Tamsulosin HCl [Flomax 0.4 MG (*)] 0.4 mg PO DAILY 05/22/17 [Last Taken 08/06/17 ] buPROPion SR [Wellbutrin 150mg SR (*)] 150 mg PO DAILY 05/22/17 [Last Taken 03/15] - NPO status NPO Status: no food or drink >8 hours NPO Since - Liquids (Date): 08/07/17 NPO Since - Liquids (Time): 06:00 NPO Since - Solids (Date): 08/06/17 NPO Since - Solids (Time): 20:00 - Anes Hx Anes Hx: no prior problems - Smoking Hx Smoking Status: Never smoked ANE Labs/Vital Signs - Labs Result Diagrams: 08/07/17 06:20 - Vital Signs Vital Signs: reviewed preoperatively; see RN documention for details Blood Pressure: 144/76 Heart Rate: 74 Respiratory Rate: 20 O2 Sat (%): 92 Height: 177.8 cm Weight: 79.832 kg ANE Physical Exam - Airway Neck exam: decreased ROM, increased neck circumference Mallampati Score: Class 3 Mouth exam: normal dental/mouth exam, rao - Pulmonary Pulmonary: no respiratory distress - Cardiovascular Cardiovascular: regular rate and rhythym - ASA Status ASA Status: III ANE Anesthesia Plan Anesthesia Plan: general endotracheal anesthesia Specialized Airway: video laryngoscope Total IV Anesthesia: No
[2017-08-07] MEDS ORDERED: PROPOFOL 200 MG/20 ML VIAL ONE (07:10)
[2017-08-07] MEDS ORDERED: fentaNYL 100 MCG/2 ML INJ ONE ×3 (07:10→09:12)
[2017-08-07] MEDS ORDERED: ROCURONIUM 50 MG/5 ML VIAL ONE (07:12)
[2017-08-07] MEDS ORDERED: LIDOCAINE 2% 5 ML SDV ONE (07:12)
[2017-08-07] MEDS ORDERED: DEXAMETHASONE 4 MG/ML VIAL ONE (07:26)
[2017-08-07] MEDS ORDERED: ONDANSETRON 4 MG/2 ML VIAL ONE (07:26)
[2017-08-07] MEDS ORDERED: SUGAMMADEX SODIUM 200 MG/2 ML VIAL IVP ONE (07:26)
[2017-08-07] MEDS ORDERED: PHENYLEPHRINE HCL 100 MCG/ML SYR IVP PRN (07:51)
[2017-08-07] MEDS ORDERED: NS 500 ML IV PRN (07:51)
[2017-08-07] MEDS ORDERED: oxyCODONE IR 5 MG TAB PO PRN (07:51)
[2017-08-07] MEDS ORDERED: ONDANSETRON 4 MG/2 ML VIAL IVP PRN (07:51)
[2017-08-07] MEDS ORDERED: NALOXONE HCL 0.4 MG/ML INJ IVP PRN (07:51)
[2017-08-07] MEDS ORDERED: ACETAMINOPHEN 500 MG TAB PO PRN (07:51)
[2017-08-07] MEDS: fentaNYL 100 MCG/2 ML INJ IVP PRN ×4 (08:53→09:24)
--- NOTE | 2017-08-07 08:55 | POSTOPPROG ---
Post Op Note Date of Operation: 08/07/17 Surgeon: Flakito Godoy Fruit Farmer: Ivanna Desai PA-C Anesthesia: GET(General Endotracheal) Pre-op Diagnosis: left elbow septic olecranon bursa Post-op Diagnosis: left elbow septic olecranon bursa Procedure: left elbow irrigation and debridement, bursectomy Inf/Abcess present in the surg proc area at time of surgery?: Yes Depth: Deep Incisional (Fascial) EBL: Minimal
[2017-08-07] MEDS ORDERED: oxyCODONE IR 5 MG TAB ONE (09:25)
[2017-08-07 10:52] VITALS: BP 142/79
--- NOTE | 2017-08-07 19:39 | GOP ---
[f rep st] OPERATIVE REPORT PATIENT: EMIL SIMMONS DATE OF SERVICE: 08/07/17 PATIENT DATE OF : 1940 SURGEON: Flakito Godoy M.D. DRAWING IN MACHINE TENDER: Ivanna Desai PA-C Mrs. Concepcion assistance was medically necessary for patient positioning and the safe retraction of vital structures. 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) Left elbow partial triceps tendon tear (ICD-10 code S46.302S left elbow partial triceps tendon tear) OPERATIVE PROCEDURES: CPT code 29577 Left elbow olecranon bursa excision CPT code 89011 Left olecranon sequestrectomy for osteomyelitis CPT code 11804 Left olecranon partial excision for osteomyelitis CPT code 76241 Debridement of bone, first 20 square cm or less Modifier 47 -- Regional anesthesia by surgeon ESTIMATED BLOOD LOSS: 1cc COMPLICATIONS: None IMPLANTS: None BRIEF CLINICAL NOTE: This is a very pleasant 76 year old male with a significant history for left elbow septic olecranon bursitis with a chronic draining sinus concerning for underlying osteomyelitis. As such, I have discussed the risks, benefits, alternatives, and complications associated with both non-operative (specifically, casting) and operative (specifically, left elbow olecranon bursa excision with irrigation and debridement) forms of treatment. The patient fully understands the risks, benefits, alternatives, and complications associated with both forms of treatment and wishes to proceed with operative intervention as outlined above. The patient has signed the informed consent form for surgery. OPERATIVE NOTE: On the day of surgery, all of the patients questions were answered. The patient was then transferred from the pre-operative area into the operating room and a formal, Time-Out procedure was performed. The patient was identified by name, medical record number, social security number, and date of . In addition, the patients left upper extremity was identified as the correct portion of the patients body for surgery with the patients left elbow being identified as the correct portion of that extremity for surgery. The anesthesia team administered pre-operative antibiotics for prophylaxis. The patient was then transferred from the preoperative gurney onto the operating room table and placed in the lateral decubitus position. The brachium was then padded with webril and a tourniquet was applied. The left upper extremity was then prepped and draped in the normal sterile fashion. A sterile marking pen was then utilized to emil out a curvilinear incision overlying the posterior aspect of the olecranon and along the subcutaneous border of the ulna curving radially around the tip of the olecranon process. An Esmarch was then utilized to exsanguinate the upper extremity and the tourniquet was inflated to 250 mmHg. A #15 blade was then used to incise through the skin. Meticulous hemostasis was obtained in the subcutaneous plane. Radial and ulnar full thickness skin flaps were then carefully elevated to expose the underlying olecranon bursa. The olecranon bursa was then excised en bloc and sent to the laboratory for microbiologic examination. The anterior aspect of the olecranon bursa demonstrated a communicating sinus tract down to the olecranon process. As such , the olecranon process was sharply surgically debrided and partial resected to remove the sequestrum. The olecranon process was then copiously irrigated with sterile normal saline mixed with bacitracin and polymixin. In addition, the surrounding soft tissue bed including the subcuanteous tissue, muscle and fascia was also sharply surgically debrided and copiously irrigated with sterile normal saline mixed with bacitracin and polymixin. Of note, the patient demonstrated a high-grade partial thickness bursal-surface triceps tendon tear due to the infection. This portion of the triceps was carefully debrided to remove all non-viable tissue. The skin was then re-approximated with 3-0 nylon sutures. Betadine soaked gauze was then applied to the incision followed by a dry sterile dressing and a compressive gabriela wrap. Once the dressing was completely in place, the tourniquet was deflated. After complete deflation of the tourniquet all fingers and the thumb demonstrated brisk capillary refill. The patient was then reversed from anesthesia and transferred from the operating room table to the postoperative gurney and transferred from the operating room to the post anesthesia care in stable condition. POSTOPERATIVE PLAN: The patient will remain in the current splint and dressing for the next 2 weeks. I will see the patient back in the office in 2 weeks at which point the original dressing will be removed and the sutures will be removed. The patient will be evaluated by the infectious disease team tomorrow for the initiation of long-term intravenous antibiotics. In the interim, he has been started on a course of oral antibiotics. /[id number]/MODL MTDD
--- NOTE | 2017-08-08 09:07 | POSTANESTH ---
Post Anesthetic Evaluation Cardiovascular Status: Normal, Stable, Similar to Pre-Op Cond Respiratory Status: Normal, Stable, Similar to Pre-op Cond. Level of Consciousness/Mental Status: Can Participate in Eval, Alert and Oriented Pain Control: Adequate, Prn Tx Ordered Nausea/Vomiting Control: Adequate, Prn Tx Ordered Complications Possibly Related to Anesthesia: None Noted
== END 2017-08-07 11:40 | disposition home or self-care (01) ==
LOC: FSGY 05:42
PROVIDERS: ATTEND Orthopaedic Surgery Hand Surgery
PROC: 0MB40ZZ Excision of Left Elbow Bursa and Ligament, Open Approach (ICD-10-PCS; principal; 2017-08-07 07:15)
DX: M70.21 Olecranon bursitis, right elbow (principal); M86.2 Subacute osteomyelitis; I10 Essential (primary) hypertension; E78.5 Hyperlipidemia, unspecified; I25.2 Old myocardial infarction; I25.10 Atherosclerotic heart disease of native coronary artery without angina pectoris; Z95.5 Presence of coronary angioplasty implant and graft; Z79.01 Long term (current) use of anticoagulants
CPT/HCPCS: J0690; J1100; J2405; J2704; J3010

== ENCOUNTER → 2017-08-08 | Day surgery (SDC) | payer OTHER | END | disposition home or self-care (01) | LOC: FIMAGING 14:48 | PROVIDERS: ATTEND Internal Medicine Infectious Disease | PROC: 02HV33Z Insertion of Infusion Device into Superior Vena Cava, Percutaneous Approach (ICD-10-PCS; principal; 2017-08-08) | PROC: B5181ZA Fluoroscopy of Superior Vena Cava using Low Osmolar Contrast, Guidance (ICD-10-PCS; principal; 2017-08-08) | DX: M70.21 Olecranon bursitis, right elbow (principal); Z79.2 Long term (current) use of antibiotics | CPT/HCPCS: 36569; 77001; C1751 ==

== ENCOUNTER 2017-08-30 12:07 | Emergency (ER) | payer OTHER ==
--- NOTE | 2017-08-30 12:39 | EDPHY ---
General Time Seen by Provider: 08/30/17 12:26 Narrative: CHIEF COMPLAINT: left knee pain, injury yesterday HISTORY OF PRESENT ILLNESS: Patient complains of left knee pain and swelling. This started yesterday evening. He says that he thinks he accidentally bumped the knee on the wall. He states "I kind of stumbled and I think I hit it on a wall." He denies striking his head. He did not fall. He has no injury elsewhere. He says it was mildly painful last night. He woke this morning with some swelling. It is only painful when he moves it or touches the area. It is minimally painful with ambulation. No numbness or tingling. No pain in the left calf, thigh or anywhere else. No laceration. No bleeding. No other associated complaints or modifying factors REVIEW OF SYSTEMS: Ten systems reviewed and are negative unless otherwise noted in the HPI PCP: Dr. Miller SPECIALISTS: Infectious disease, [facility] Dr. Gonzalez, orthopedist Dr. Resendiz, Cardiology branding specialist Dr. Menendez, GI PAST MEDICAL HISTORY: Irritable bowel, bowel obstruction, hernia, type 2 diabetes, depression, SRINIVASA, coronary artery disease with stents, mi, dish PAST SURGICAL HISTORY: No recent surgeries. History of appendectomy, hernia repair, bilateral knee surgeries, spinal fusion, cardiac stents SOCIAL HISTORY: Never smoker. Lives independently in [place] EXAMIN[place] General Appearance: Alert, no distress Head: normocephalic, atraumatic Eyes: Pupils equal and round, no conjunctival pallor or injection ENT, Mouth: Mucous membranes moist Neck: Normal inspection, supple, non-tender. No crepitus or deformity Respiratory: Lungs are clear to auscultation Cardiovascular: Regular rate. Symmetric DP and PT pulses 2+. Back: Kyphotic appearance. non-tender, no bony abnormalities Neurological: GCS 15. A&O, nonfocal, normal gait Skin: Warm and dry, no rash. Multiple H spots. No laceration or puncture. No petechiae Extremities: Mild tenderness of the left anterior knee with mild effusion noted. Range of motion of the knees symmetric. Well-healed surgical incisions on both knees. Neurovascular intact distally. There is no evidence of DVT of the lower extremities. Psychiatric: Mood and affect normal DIFFERENTIAL DIAGNOSES: Including but not limited to knee sprain, joint effusion, patellar fracture, subluxation, ligamentous injury MDM: 12:40 p.m. Acute injury to the left knee yesterday with reproducible pain. He is ambulatory in no acute distress. I have ordered x-ray of the knee. There was no head strike or loss of consciousness, and he has no complaint of headache or neck pain. 1:25 p.m. X-ray of the knee has been read as negative for any acute finding. There is mild effusion noted. I have re-evaluated the patient discussed this with him. He is ambulatory without difficulty. I do not appreciate any evidence of DVT. I do feel he is stable for discharge home with follow up with established orthopedist Dr. Gonzalez. We discussed ice and elevation. He is comfortable this plan and discharged home stable condition. SUPERVISION: This patient was independently evaluated without direct involvement of or examination by the attending physician. - Diagnostics Imaging Results: Imaging Impressions Knee X-Ray 08/30/17 12:39 Impression: 1. No acute fracture. 2. Small knee joint effusion. 3. Atherosclerotic disease. - History Smoking Status: Never smoked - Objective Vital Signs: Initial Vital Signs Temperature (C) 97.9 F 08/30/17 12:08 Heart Rate 80 08/30/17 12:08 Respiratory Rate 16 08/30/17 12:08 Blood Pressure 138/76 H 08/30/17 12:08 O2 Sat (%) 89 L 08/30/17 12:08 O2 Delivery Mode Room Air Allergies/Adverse Reactions: No Known Allergies Allergy (Verified 01/30/17 17:01) Home Medications: Medication Instructions Recorded Carvedilol [Coreg (*)] 12.5 mg PO BID 09/20/15 Empagliflozin [Jardiance] 25 mg PO DAILY 09/20/15 FLUoxetine [Prozac 20 MG (*)] 60 mg PO DAILY 09/20/15 Multivitamins [Multivitamin (*)] 1 each PO DAILY 09/20/15 Rosuvastatin Calcium [Crestor 40mg 40 mg PO HS 09/20/15 (*)] Promethazine HCl [Phenergan 25mg 25 mg PO Q6 PRN #30 tab 01/27/16 (*)] Hyoscyamine Sulfate [Levsin, 0.125 mg PO Q6 PRN 11/03/16 Hyomax-Sl 0.125 mg (*)] Clopidogrel Bisulfate [Plavix (*)] 75 mg PO DAILY 05/22/17 Herbals/Supplements -Info Only 1 ea PO DAILY 05/22/17 Lisinopril [Zestril 10 mg (*)] 10 mg PO DAILY 05/22/17 Pantoprazole Sodium [Protonix 40mg 40 mg PO BIDAC 05/22/17 (*)] Ranitidine HCl [Zantac] 300 mg PO HS 05/22/17 Tamsulosin HCl [Flomax 0.4 MG (*)] 0.4 mg PO DAILY 05/22/17 buPROPion SR [Wellbutrin 150mg SR 150 mg PO DAILY 05/22/17 (*)] Acetaminophen [Tylenol ES 500 mg 1,000 mg PO TID PRN tab 05/26/17 (*)] Insulin Glargine [Lantus Syringe] 25 units SC DAILY unit 05/26/17 Polyethylene Glycol 3350 [Miralax 17 gm PO DAILY PRN pkt 05/26/17 17 gm (*)] oxyCODONE IR [Oxycodone Ir (*)] 5 - 10 mg PO Q4HRS PRN #30 tab 08/07/17 Departure - Departure Disposition: Home, Routine, Self-Care Clinical Impression: Knee effusion, left Injury of knee, left Qualifiers: Encounter type: initial encounter Qualified Code(s): S89.92XA - Unspecified injury of left lower leg, initial encounter Condition: Good Instructions: Swollen Knee Joint (ED), Knee Pain (ED) Additional Instructions: 1. Weightbearing as tolerated 2. Contact established orthopedist on Friday for outpatient care Referrals: CLAYTON MILLER [Primary Care Provider] - As per Instructions Sukhjinder Gonzalez MD [Medical Doctor] - As per Instructions
[2017-08-30 13:40] VITALS: BP 140/80
== END 2017-08-30 13:49 | disposition home or self-care (01) ==
DX: S89.92XA Unspecified injury of left lower leg, initial encounter (principal); I25.10 Atherosclerotic heart disease of native coronary artery without angina pectoris; I25.2 Old myocardial infarction; E11.9 Type 2 diabetes mellitus without complications; Z95.5 Presence of coronary angioplasty implant and graft; Z79.82 Long term (current) use of aspirin; W22.01XA Walked into wall, initial encounter

== ENCOUNTER 2018-03-03 16:08 | Inpatient (IN) | payer OTHER ==
[2018-03-03] MEDS ORDERED: NS 1,000 ML IV ONE (16:53)
[2018-03-03] MEDS ORDERED: ONDANSETRON 4 MG/2 ML VIAL IVP ONE (16:53)
--- NOTE | 2018-03-03 16:57 | EDPHY ---
H & P Stated Complaint: Fever/fatigue Time Seen by Provider: 03/03/18 16:23 HPI/ROS: CHIEF COMPLAINT: Fever, malaise HISTORY OF PRESENT ILLNESS: 77-year-old male presents with fever and malaise. Onset of malaise 2 days ago. Feeling weaker than normal and having difficulty ambulating because of weakness. Was seen yesterday in the office and found out that he had a fever to 102. Laboratory testing revealed leukocytosis. Urinalysis normal. He was sent here for further evaluation. 2 episodes of watery stools today, associated with nausea and lack of appetite. No abdominal pain or cramping. Subjective fever today. REVIEW OF SYSTEMS: complete 10 point ROS reviewed and is negative except for the noted elements in the HPI - Personal History Current Tetanus/Diphtheria Vaccine: Yes Tetanus Vaccine Date: < 10 years - Medical/Surgical History Hx Asthma: No Hx Chronic Respiratory Disease: Yes Hx Diabetes: Yes Hx Cardiac Disease: Yes Hx Renal Disease: No Hx Cirrhosis: No Hx Alcoholism: No Hx HIV/AIDS: No Hx Splenectomy or Spleen Trauma: No Other PMH: Irritable bowel, bowel obstruction 12 years ago , appy, hernia, Type II diabetic, spine problems (cortisone injection, HTN , depression, cpap at night, spinal fusion, endoscopy, heart stents 07/2014, [place], bronchitis, DISH - Social History Smoking Status: Never smoked Alcohol Use: Sober Additional Social History: Lives in own home with - Physical Exam Exam: General Appearance: Alert, pleasant, nontoxic-appearing Eyes: Pupils equal and round, no conjunctival pallor or injection ENT, Mouth: Mucous membranes moist, no pharyngeal erythema Neck: Normal inspection Respiratory: Rales at the bases Cardiovascular: Regular rate and rhythm Gastrointestinal: Abdomen is soft and nontender Neurological: A&O, nonfocal exam Skin: Warm and dry Extremities: Nontender, no pedal edema Psychiatric: Mood and affect normal Constitutional: Initial Vital Signs Temperature (C) 36.5 C 03/03/18 16:16 Heart Rate 91 03/03/18 16:16 Respiratory Rate 18 18 16:16 Blood Pressure 107/65 03/03/18 16:16 O2 Sat (%) 91 L 03/03/18 16:16 O2 Delivery Mode Room Air O2 (L/minute) 2 Allergies/Adverse Reactions: No Known Allergies Allergy (Verified 03/03/18 16:18) Home Medications: Medication Instructions Recorded Carvedilol [Coreg (*)] 12.5 mg PO BID 09/20/15 Empagliflozin [Jardiance] 25 mg PO DAILY 09/20/15 FLUoxetine [Prozac 20 MG (*)] 60 mg PO DAILY 09/20/15 Multivitamins [Multivitamin (*)] 1 each PO DAILY 09/20/15 Rosuvastatin Calcium [Crestor 40mg 40 mg PO HS 09/20/15 (*)] Promethazine HCl [Phenergan 25mg 25 mg PO Q6 PRN #30 tab 01/27/16 (*)] Hyoscyamine Sulfate [Levsin, 0.125 mg PO Q6 PRN 11/03/16 Hyomax-Sl 0.125 mg (*)] Clopidogrel Bisulfate [Plavix (*)] 75 mg PO DAILY 05/22/17 Herbals/Supplements -Info Only 1 ea PO DAILY 05/22/17 Lisinopril [Zestril 10 mg (*)] 10 mg PO DAILY 05/22/17 Pantoprazole Sodium [Protonix 40mg 40 mg PO BIDAC 05/22/17 (*)] Ranitidine HCl [Zantac] 300 mg PO HS 05/22/17 Tamsulosin HCl [Flomax 0.4 MG (*)] 0.4 mg PO DAILY 05/22/17 buPROPion SR [Wellbutrin 150mg SR 150 mg PO DAILY 05/22/17 (*)] Acetaminophen [Tylenol ES 500 mg 1,000 mg PO TID PRN tab 05/26/17 (*)] Insulin Glargine [Lantus Syringe] 25 units SC DAILY unit 05/26/17 Polyethylene Glycol 3350 [Miralax 17 gm PO DAILY PRN pkt 05/26/17 17 gm (*)] oxyCODONE IR [Oxycodone Ir (*)] 5 - 10 mg PO Q4HRS PRN #30 tab 08/07/17 Medical Decision Making - Diagnostics Imaging Results: Imaging Impressions Chest X-Ray 03/03/18 16:54 Impression: 1. Bronchitis/airways disease. 2. No focal pneumonia. 3. No pneumoperitoneum. Imaging: Discussed imaging studies w/ mail caller Radiologist ED Course/Re-evaluation: This patient presents with fever, generalized weakness and loose stools. IV normal saline 1 L given. Does not meet SIRS criteria. However initial lactate 2.2, will repeat. No BM while in ED, likely acute enteritis causing fever and weakness. No evidence of surgical abdomen. Chest x-ray is unremarkable; no evidence of pneumonia. Urinalysis is also unremarkable. The patient remained clinically stable throughout his emergency department stay. Will admit to the hospitalist service for fever and generalized weakness. Differential Diagnosis: Differential diagnosis includes pyelonephritis, cholecystitis, influenza, cellulitis, pneumonia, abscess, meningitis. - Data Points Laboratory Results: Laboratory Results 03/03/18 16:40 03/03/18 16:40 03/03/18 03/03/18 03/03/18 18:00 17:20 16:40 WBC RBC Hgb Hct MCV MCH MCHC RDW Plt Count MPV Neut % (Auto) Lymph % (Auto) [place] % (Auto) Eos % (Auto) Baso % (Auto) Nucleat RBC Rel Count Absolute Neuts (auto) Absolute Lymphs (auto) Absolute Monos (auto) Absolute Eos (auto) Absolute Basos (auto) Absolute Nucleated RBC Immature Gran % Immature Gran # ABG Lactic Acid Sodium Potassium Chloride Carbon Dioxide Anion Gap BUN Creatinine Estimated GFR Glucose Hemoglobin A1c 5.9 % % (4.0-6.0) Estim Average Glucose 123 mg/dL mg/dL (68-126) Calcium Total Bilirubin Conjugated Bilirubin Unconjugated Bilirubin AST ALT Alkaline Phosphatase Total Protein Albumin Lipase Urine Color YELLOW Urine Appearance CLEAR Urine pH 5.0 (5.0-7.5) Ur Specific [place] 1.035 H (1.002-1.030) Urine Protein NEGATIVE (NEGATIVE) Urine Ketones TRACE H (NEGATIVE) Urine Blood NEGATIVE (NEGATIVE) Urine Nitrate NEGATIVE (NEGATIVE) Urine Bilirubin NEGATIVE (NEGATIVE) Urine Urobilinogen NEGATIVE EU EU (0.2-1.0) Ur Leukocyte Esterase NEGATIVE (NEGATIVE) Urine RBC 1-3 /hpf /hpf (0-3) Urine WBC 3-5 /hpf H /hpf (0-3) Ur Epithelial Cells TRACE /lpf /lpf (NONE-1+) Urine Glucose 3+ H (NEGATIVE) Nasal Influenza A PCR NEGATIVE FOR FLU A (NEGATIVE) Nasal Influenza B PCR NEGATIVE FOR FLU B (NEGATIVE) 03/03/18 03/03/18 03/03/18 16:40 16:40 16:40 WBC RBC Hgb Hct MCV MCH MCHC RDW Plt Count MPV Neut % (Auto) Lymph % (Auto) [place] % (Auto) Eos % (Auto) Baso % (Auto) Nucleat RBC Rel Count Absolute Neuts (auto) Absolute Lymphs (auto) Absolute Monos (auto) Absolute Eos (auto) Absolute Basos (auto) Absolute Nucleated RBC Immature Gran % Immature Gran # ABG Lactic Acid 2.2 mmol/L H mmol/L (0.5-1.6) Sodium 137 mEq/L mEq/L (135-145) Potassium 4.1 mEq/L mEq/L (3.3-5.0) Chloride 103 mEq/L mEq/L (97-110) Carbon Dioxide 22 mEq/l mEq/l (22-31) Anion Gap 12 mEq/L mEq/L (6-14) BUN 16 mg/dL mg/dL (7-23) Creatinine 1.1 mg/dL mg/dL (0.7-1.3) Estimated GFR > 60 Glucose 139 mg/dL H mg/dL (70-100) Hemoglobin A1c Estim Average Glucose Calcium 9.3 mg/dL mg/dL (8.5-10.4) Total Bilirubin 1.1 mg/dL mg/dL 1.1 mg/dL mg/dL (0.1-1.4) (0.1-1.4) Conjugated Bilirubin 0.3 mg/dL mg/dL (0.0-0.5) Unconjugated Bilirubin 0.8 mg/dL mg/dL (0.0-1.1) AST 32 IU/L IU/L 29 IU/L IU/L (17-59) (17-59) ALT 25 IU/L IU/L 29 IU/L IU/L (21-72) (21-72) Alkaline Phosphatase 127 IU/L H IU/L 121 IU/L IU/L (38-126) (38-126) Total Protein 6.1 g/dL L g/dL 6.2 g/dL L g/dL (6.3-8.2) (6.3-8.2) Albumin 3.6 g/dL g/dL 3.7 g/dL g/dL (3.5-5.0) (3.5-5.0) Lipase 41 IU/L IU/L (23-300) Urine Color Urine Appearance Urine pH Ur Specific [place] Urine Protein Urine Ketones Urine Blood Urine Nitrate Urine Bilirubin Urine Urobilinogen Ur Leukocyte Esterase Urine RBC Urine WBC Ur Epithelial Cells Urine Glucose Nasal Influenza A PCR Nasal Influenza B PCR 03/03/18 16:40 WBC 12.87 10^3/uL H 10^3/uL (3.80-9.50) RBC 5.30 10^6/uL 10^6/uL (4.40-6.38) Hgb 14.6 g/dL g/dL (13.7-17.5) Hct 44.6 % % (40.0-51.0) MCV 84.2 fL fL (81.5-99.8) MCH 27.5 pg L pg (27.9-34.1) MCHC 32.7 g/dL g/dL (32.4-36.7) RDW 14.7 % % (11.5-15.2) Plt Count 416 10^3/uL H 10^3/uL (150-400) MPV 10.5 fL fL (8.7-11.7) Neut % (Auto) 80.9 % H % (39.3-74.2) Lymph % (Auto) 8.5 % L % (15.0-45.0) [place] % (Auto) 6.7 % % (4.5-13.0) Eos % (Auto) 2.7 % % (0.6-7.6) Baso % (Auto) 0.5 % % (0.3-1.7) Nucleat RBC Rel Count 0.0 % % (0.0-0.2) Absolute Neuts (auto) 10.42 10^3/uL H 10^3/uL (1.70-6.50) Absolute Lymphs (auto) 1.09 10^3/uL 10^3/uL (1.00-3.00) Absolute Monos (auto) 0.86 10^3/uL H 10^3/uL (0.30-0.80) Absolute Eos (auto) 0.35 10^3/uL 10^3/uL (0.03-0.40) Absolute Basos (auto) 0.06 10^3/uL 10^3/uL (0.02-0.10) Absolute Nucleated RBC 0.00 10^3/uL 10^3/uL (0-0.01) Immature Gran % 0.7 % % (0.0-1.1) Immature Gran # 0.09 10^3/uL 10^3/uL (0.00-0.10) ABG Lactic Acid Sodium Potassium Chloride Carbon Dioxide Anion Gap BUN Creatinine Estimated GFR Glucose Hemoglobin A1c Estim Average Glucose Calcium Total Bilirubin Conjugated Bilirubin Unconjugated Bilirubin AST ALT Alkaline Phosphatase Total Protein Albumin Lipase Urine Color Urine Appearance Urine pH Ur Specific [place] Urine Protein Urine Ketones Urine Blood Urine Nitrate Urine Bilirubin Urine Urobilinogen Ur Leukocyte Esterase Urine RBC Urine WBC Ur Epithelial Cells Urine Glucose Nasal Influenza A PCR Nasal Influenza B PCR Medications Given: Sodium Chloride (Ns) 1,000 mls @ 75 mls/hr IV CONT DARREN Stop: 08/30/18 19:29 Last Admin: 03/03/18 20:28 Dose: 1,000 mls Discontinued Medications Sodium Chloride (Ns) 1,000 mls @ 0 mls/hr IV EDNOW ONE; Wide Open PRN Reason: Protocol Stop: 03/03/18 16:54 Last Admin: 03/03/18 17:18 Dose: 1,000 mls Ondansetron HCl (Zofran) 4 mg IVP EDNOW ONE Stop: 03/03/18 16:54 Last Admin: 03/03/18 17:18 Dose: 4 mg Oxycodone HCl (Oxycodone Ir) 5 mg PO ONCE ONE Stop: 03/03/18 18:27 Last Admin: 03/03/18 18:28 Dose: 5 mg Departure - Departure Disposition: [facility] Acute Clinical Impression: Generalized weakness Fever Qualifiers: Fever type: unspecified Qualified Code(s): R50.9 - Fever, unspecified Condition: Fair
[2018-03-03 17:03] LABS: PLATELET COUNT 416 10^3/uL (150-400)
[2018-03-03] MEDS ORDERED: oxyCODONE IR 5 MG TAB PO ONE (18:26)
[2018-03-03] MEDS ORDERED: oxyCODONE IR 5 MG TAB ONE (18:27)
[2018-03-03] MEDS ORDERED: ACETAMINOPHEN 325 MG TAB PO PRN (19:16)
[2018-03-03] MEDS ORDERED: oxyCODONE IR 5 MG TAB PO PRN (19:16)
--- NOTE | 2018-03-03 19:23 | PDGENHP ---
<Jennifer Hannah - Last Filed: 03/03/18 19:23> History and Physical - Chief Complaint Fevers, diarrhea, weakness - History of Present Illness 77 y/o male with history significant for CAD, PUD, HTN, T2DM, SRINIVASA with CPAP and DISH presents with a 5 day course of generalized weakness, fevers and diarrhea. + nausea, loss of appetite. Able to tolerate fluids. Denies hematochezia, melena, hematuria, emesis, abdominal pain or cramping. Has not recently traveled and has not been around anyone who was sick. He has received his flu vaccine recently. Denies chest pains, SOB, acute dizziness. Past Medical/Surgical History 1. Coronary Artery Disease 2. Myocardial Infarct (1.5 years ago) with 2 stents placed 3. Peptic Ulcer Disease 4. Hypertension 5. Diabetes Type II 6. Obstructive Sleep Apnea with CPAP 7. Irritable Bowel Syndrome 8. Bronchitis 9. Diffuse Idiopathic Skeletal Hyperostosis (DISH) 10. Appendectomy 11. Cholecystectomy History Information - Allergies/Home Medication List Allergies/Adverse Reactions: No Known Allergies Allergy (Verified 03/03/18 16:18) Home Medications: Carvedilol [Coreg (*)] 12.5 mg PO BID 09/20/15 [Last Taken 08/07/17] Empagliflozin [Jardiance] 25 mg PO DAILY 09/20/15 [Last Taken 08/06/17] FLUoxetine [Prozac 20 MG (*)] 60 mg PO DAILY 09/20/15 [Last Taken 08/06/17] Multivitamins [Multivitamin (*)] 1 each PO DAILY 09/20/15 [Last Taken 08/06/17] Rosuvastatin Calcium [Crestor 40mg (*)] 40 mg PO HS 09/20/15 [Last Taken ] Hyoscyamine Sulfate [Levsin, Hyomax-Sl 0.125 mg (*)] 0.125 mg PO Q6 PRN [Last Taken 08/06/17] Clopidogrel Bisulfate [Plavix (*)] 75 mg PO DAILY 05/22/17 [Last Taken 07/31/17 18:00] Herbals/Supplements -Info Only 1 ea PO DAILY 05/22/17 [Last Taken 08/06/17] Lisinopril [Zestril 10 mg (*)] 10 mg PO DAILY 05/22/17 [Last Taken 08/06/17] Pantoprazole Sodium [Protonix 40mg (*)] 40 mg PO BIDAC 05/22/17 [Last Taken 03/15] Ranitidine HCl [Zantac] 300 mg PO HS 05/22/17 [Last Taken 08/06/17] Tamsulosin HCl [Flomax 0.4 MG (*)] 0.4 mg PO DAILY 05/22/17 [Last Taken 08/06/17 ] buPROPion SR [Wellbutrin 150mg SR (*)] 150 mg PO DAILY 05/22/17 [Last Taken 03/15] I have personally reviewed and updated: family history, medical history, social history, surgical history Past Medical History: See HPI list - Past Medical History arthritis, coronary artery disease, cataracts (Recent cataract surgery), diabetes type 2 Additional medical history: DISH - Surgical History Reports: cholecystectomy - Family History Positive for: cancer (Father), CAD (Mother) - Social History Smoking Status: Never smoked Alcohol Use: Sober Drug Use: None Review of Systems Review of Systems: ROS: 10pt was reviewed & negative except for what was stated in HPI & below Constitutional: Reports: fever, malaise, weakness EENMT: Reports: no symptoms Cardiac: Reports: no symptoms Respiratory: Reports: no symptoms Gastrointestinal: Reports: diarrhea, nausea Genitourinary: Reports: no symptoms Muscolosketal: Reports: back pain (Chronic) Skin: Reports: no symptoms Neurological: Reports: weakness Hematologic/Lymphatic: Reports: no symptoms Immunologic/Allergy: Reports: no symptoms Physical Exam Physical Exam: Lab data and Imaging reviewed WBC: 12.87 Lactate: 2.2 UA: Glucose 3+ (this is chronic) CXR: No pneumonia, no pneumoperitoneum. Bronchitis. Temp Pulse Resp BP Pulse Ox 36.7 C 78 18 118/72 97 03/03/18 16:50 03/03/18 18:49 03/03/18 18:49 03/03/18 18:49 03/03/18 18:49 O2 (L/minute) 2 Constitutional: uncomfortable, other (Cooperative, pleasant) Ears, Nose, Mouth, Throat: moist mucous membranes, ears appear normal, no oral mucosal ulcers, hard of hearing Cardiovascular: regular rate and rhythym, no murmur, rub, or gallop, No edema Peripheral Pulses: 1+: dorsalis-pedis (R) (Radial 1+), dorsalis-pedis (L) ( Radial 1+) Respiratory: reduced air movement (Diminished lung sounds throughout) Gastrointestinal: soft, non-tender abdomen, other (Hypoactive) Genitourinary: no bladder fullness, no bladder tenderness Skin: warm, normal color, no rashes or abrasions, no fluctuance, no induration, No mottled Musculoskeletal: no muscle tenderness, normal joint ROM, no joint effusions, generalized weakness (BUE motor strength 4/5, BLE 3/5) Neurologic: AAOx3, sensation intact bilaterally, weakness, CN II-XII Intact Psychiatric: interacting appropriately, not anxious, not encephalopathic, thought process linear Lymph, Heme, Immunologic: no cervical LAD, no supraclavicular LAD Lab Data & Imaging Review 03/03/18 16:40 03/03/18 16:40 WBC 12.87 10^3/uL (3.80-9.50) H 03/03/18 16:40 RBC 5.30 10^6/uL (4.40-6.38) 03/03/18 16:40 Hgb 14.6 g/dL (13.7-17.5) 03/03/18 16:40 Hct 44.6 % (40.0-51.0) 03/03/18 16:40 MCV 84.2 fL (81.5-99.8) 03/03/18 16:40 MCH 27.5 pg (27.9-34.1) L 03/03/18 16:40 MCHC 32.7 g/dL (32.4-36.7) 03/03/18 16:40 RDW 14.7 % (11.5-15.2) 03/03/18 16:40 Plt Count 416 10^3/uL (150-400) H 03/03/18 16:40 MPV 10.5 fL (8.7-11.7) 03/03/18 16:40 Neut % (Auto) 80.9 % (39.3-74.2) H 03/03/18 16:40 Lymph % (Auto) 8.5 % (15.0-45.0) L 03/03/18 16:40 Frio % (Auto) 6.7 % (4.5-13.0) 03/03/18 16:40 Eos % (Auto) 2.7 % (0.6-7.6) 03/03/18 16:40 Baso % (Auto) 0.5 % (0.3-1.7) 03/03/18 16:40 Nucleat RBC Rel Count 0.0 % (0.0-0.2) 03/03/18 16:40 Absolute Neuts (auto) 10.42 10^3/uL (1.70-6.50) H 03/03/18 16:40 Absolute Lymphs (auto) 1.09 10^3/uL (1.00-3.00) 03/03/18 16:40 Absolute Monos (auto) 0.86 10^3/uL (0.30-0.80) H 03/03/18 16:40 Absolute Eos (auto) 0.35 10^3/uL (0.03-0.40) 03/03/18 16:40 Absolute Basos (auto) 0.06 10^3/uL (0.02-0.10) 03/03/18 16:40 Absolute Nucleated RBC 0.00 10^3/uL (0-0.01) 03/03/18 16:40 Immature Gran % 0.7 % (0.0-1.1) 03/03/18 16:40 Immature Gran # 0.09 10^3/uL (0.00-0.10) 03/03/18 16:40 ABG Lactic Acid 2.2 mmol/L (0.5-1.6) H 03/03/18 16:40 VBG Lactic Acid 1.2 mmol/L (0.7-2.1) 03/03/18 18:50 Sodium 137 mEq/L (135-145) 03/03/18 16:40 Potassium 4.1 mEq/L (3.3-5.0) 03/03/18 16:40 Chloride 103 mEq/L (97-110) 03/03/18 16:40 Carbon Dioxide 22 mEq/l (22-31) 03/03/18 16:40 Anion Gap 12 mEq/L (6-14) 03/03/18 16:40 BUN 16 mg/dL (7-23) 03/03/18 16:40 Creatinine 1.1 mg/dL (0.7-1.3) 03/03/18 16:40 Estimated GFR > 60 03/03/18 16:40 Glucose 139 mg/dL (70-100) H 03/03/18 16:40 Calcium 9.3 mg/dL (8.5-10.4) 03/03/18 16:40 Total Bilirubin 1.1 mg/dL (0.1-1.4) 03/03/18 16:40 Conjugated Bilirubin 0.3 mg/dL (0.0-0.5) 03/03/18 16:40 Unconjugated Bilirubin 0.8 mg/dL (0.0-1.1) 03/03/18 16:40 AST 32 IU/L (17-59) 03/03/18 16:40 ALT 25 IU/L (21-72) 03/03/18 16:40 Alkaline Phosphatase 127 IU/L (38-126) H 03/03/18 16:40 Total Protein 6.1 g/dL (6.3-8.2) L 03/03/18 16:40 Albumin 3.6 g/dL (3.5-5.0) 03/03/18 16:40 Lipase 41 IU/L (23-300) 03/03/18 16:40 Urine Color YELLOW 03/03/18 18:00 Urine Appearance CLEAR 03/03/18 18:00 Urine pH 5.0 (5.0-7.5) 03/03/18 18:00 Ur Specific [place] 1.035 (1.002-1.030) H 03/03/18 18:00 Urine Protein NEGATIVE (NEGATIVE) 03/03/18 18:00 Urine Ketones TRACE (NEGATIVE) H 03/03/18 18:00 Urine Blood NEGATIVE (NEGATIVE) 03/03/18 18:00 Urine Nitrate NEGATIVE (NEGATIVE) 03/03/18 18:00 Urine Bilirubin NEGATIVE (NEGATIVE) 03/03/18 18:00 Urine Urobilinogen NEGATIVE EU (0.2-1.0) 03/03/18 18:00 Ur Leukocyte Esterase NEGATIVE (NEGATIVE) 03/03/18 18:00 Urine RBC 1-3 /hpf (0-3) 03/03/18 18:00 Urine WBC 3-5 /hpf (0-3) H 03/03/18 18:00 Ur Epithelial Cells TRACE /lpf (NONE-1+) 03/03/18 18:00 Urine Glucose 3+ (NEGATIVE) H 03/03/18 18:00 Nasal Influenza A PCR NEGATIVE FOR FLU A (NEGATIVE) 03/03/18 17:20 Nasal Influenza B PCR NEGATIVE FOR FLU B (NEGATIVE) 03/03/18 17:20 Assessment & Plan Assessment: 77 y/o male with history significant for CAD, PUD, HTN, T2DM, SRINIVASA with CPAP and DISH presents with a 5 day course of generalized weakness, fevers and diarrhea. Suspected gastroenteritis. Plan: 1. Gastroenteritis: Elevated WBC 12.87, Lactate: 2.2, 1.2, has been febrile but not here (36.7) -IV fluids -GI panel pending -Repeat CBC tomorrow 2. Generalized weakness: I suspect this is from lack of appetite and hypovolemia -Physical therapy consult -Encourage eating -IV fluids 3. Type II Diabetes: 139. Pt reports A1c from 6 months ago was 6.9% -Check A1c -Continue home medications 4. Coronary Artery Disease: Continue to monitor and continue home medications. 5. PUD: continue home medications. 6. HTN: continue home medications. 7. DISH -PO pain medications PRN Diet: Diabetic VTE ppx: SCDs Code: DNR Dispo: Admit to obs <Kai Gonzalez - Last Filed: 03/03/18 20:08> History and Physical - History of Present Illness Review of Systems Review of Systems: Physical Exam Physical Exam: Temp Pulse Resp BP Pulse Ox 36.7 C 78 18 118/72 97 03/03/18 16:50 03/03/18 18:49 03/03/18 18:49 03/03/18 18:49 03/03/18 18:49 O2 (L/minute) 2 Constitutional: no apparent distress, appears nourished, not in pain Eyes: PERRL, anicteric sclera, EOMI Ears, Nose, Mouth, Throat: moist mucous membranes, hearing normal, ears appear normal, no oral mucosal ulcers Cardiovascular: regular rate and rhythym, no murmur, rub, or gallop, No edema Respiratory: reduced air movement Gastrointestinal: normoactive bowel sounds, soft, non-tender abdomen, no palpable masses Genitourinary: no bladder fullness, no bladder tenderness Skin: warm, normal color, no rashes or abrasions, no fluctuance, no induration, No mottled Musculoskeletal: full muscle strength, no muscle tenderness, normal joint ROM, no joint effusions Neurologic: AAOx3, sensation intact bilaterally, weakness, CN II-XII Intact Psychiatric: interacting appropriately, not anxious, not encephalopathic, thought process linear Lymph, Heme, Immunologic: no cervical LAD, no supraclavicular LAD Lab Data & Imaging Review 03/03/18 16:40 03/03/18 16:40 WBC 12.87 10^3/uL (3.80-9.50) H 03/03/18 16:40 RBC 5.30 10^6/uL (4.40-6.38) 03/03/18 16:40 Hgb 14.6 g/dL (13.7-17.5) 03/03/18 16:40 Hct 44.6 % (40.0-51.0) 03/03/18 16:40 MCV 84.2 fL (81.5-99.8) 03/03/18 16:40 MCH 27.5 pg (27.9-34.1) L 03/03/18 16:40 MCHC 32.7 g/dL (32.4-36.7) 03/03/18 16:40 RDW 14.7 % (11.5-15.2) 03/03/18 16:40 Plt Count 416 10^3/uL (150-400) H 03/03/18 16:40 MPV 10.5 fL (8.7-11.7) 03/03/18 16:40 Neut % (Auto) 80.9 % (39.3-74.2) H 03/03/18 16:40 Lymph % (Auto) 8.5 % (15.0-45.0) L 03/03/18 16:40 Frio % (Auto) 6.7 % (4.5-13.0) 03/03/18 16:40 Eos % (Auto) 2.7 % (0.6-7.6) 03/03/18 16:40 Baso % (Auto) 0.5 % (0.3-1.7) 03/03/18 16:40 Nucleat RBC Rel Count 0.0 % (0.0-0.2) 03/03/18 16:40 Absolute Neuts (auto) 10.42 10^3/uL (1.70-6.50) H 03/03/18 16:40 Absolute Lymphs (auto) 1.09 10^3/uL (1.00-3.00) 03/03/18 16:40 Absolute Monos (auto) 0.86 10^3/uL (0.30-0.80) H 03/03/18 16:40 Absolute Eos (auto) 0.35 10^3/uL (0.03-0.40) 03/03/18 16:40 Absolute Basos (auto) 0.06 10^3/uL (0.02-0.10) 03/03/18 16:40 Absolute Nucleated RBC 0.00 10^3/uL (0-0.01) 03/03/18 16:40 Immature Gran % 0.7 % (0.0-1.1) 03/03/18 16:40 Immature Gran # 0.09 10^3/uL (0.00-0.10) 03/03/18 16:40 ABG Lactic Acid 2.2 mmol/L (0.5-1.6) H 03/03/18 16:40 VBG Lactic Acid 1.2 mmol/L (0.7-2.1) 03/03/18 18:50 Sodium 137 mEq/L (135-145) 03/03/18 16:40 Potassium 4.1 mEq/L (3.3-5.0) 03/03/18 16:40 Chloride 103 mEq/L (97-110) 03/03/18 16:40 Carbon Dioxide 22 mEq/l (22-31) 03/03/18 16:40 Anion Gap 12 mEq/L (6-14) 03/03/18 16:40 BUN 16 mg/dL (7-23) 03/03/18 16:40 Creatinine 1.1 mg/dL (0.7-1.3) 03/03/18 16:40 Estimated GFR > 60 03/03/18 16:40 Glucose 139 mg/dL (70-100) H 03/03/18 16:40 Calcium 9.3 mg/dL (8.5-10.4) 03/03/18 16:40 Total Bilirubin 1.1 mg/dL (0.1-1.4) 03/03/18 16:40 Conjugated Bilirubin 0.3 mg/dL (0.0-0.5) 03/03/18 16:40 Unconjugated Bilirubin 0.8 mg/dL (0.0-1.1) 03/03/18 16:40 AST 32 IU/L (17-59) 03/03/18 16:40 ALT 25 IU/L (21-72) 03/03/18 16:40 Alkaline Phosphatase 127 IU/L (38-126) H 03/03/18 16:40 Total Protein 6.1 g/dL (6.3-8.2) L 03/03/18 16:40 Albumin 3.6 g/dL (3.5-5.0) 03/03/18 16:40 Lipase 41 IU/L (23-300) 03/03/18 16:40 Urine Color YELLOW 03/03/18 18:00 Urine Appearance CLEAR 03/03/18 18:00 Urine pH 5.0 (5.0-7.5) 03/03/18 18:00 Ur Specific [place] 1.035 (1.002-1.030) H 03/03/18 18:00 Urine Protein NEGATIVE (NEGATIVE) 03/03/18 18:00 Urine Ketones TRACE (NEGATIVE) H 03/03/18 18:00 Urine Blood NEGATIVE (NEGATIVE) 03/03/18 18:00 Urine Nitrate NEGATIVE (NEGATIVE) 03/03/18 18:00 Urine Bilirubin NEGATIVE (NEGATIVE) 03/03/18 18:00 Urine Urobilinogen NEGATIVE EU (0.2-1.0) 03/03/18 18:00 Ur Leukocyte Esterase NEGATIVE (NEGATIVE) 03/03/18 18:00 Urine RBC 1-3 /hpf (0-3) 03/03/18 18:00 Urine WBC 3-5 /hpf (0-3) H 03/03/18 18:00 Ur Epithelial Cells TRACE /lpf (NONE-1+) 03/03/18 18:00 Urine Glucose 3+ (NEGATIVE) H 03/03/18 18:00 Nasal Influenza A PCR NEGATIVE FOR FLU A (NEGATIVE) 03/03/18 17:20 Nasal Influenza B PCR NEGATIVE FOR FLU B (NEGATIVE) 03/03/18 17:20 Assessment & Plan Assessment: a/ 1. Weakness most likely due to acute gastroenteritis in the setting of anorexia poor oral intake and insulin use -await stool PCR pathogen panel -check magnesium level -provide IV hydration and PO nourishment -monitor blood sugars 2. Resolved elevated lactic acid due to above 3. Type II Diabetes: -Check A1c -Continue home medications as indicated based on blood sugars 4. Coronary Artery Disease: Continue to monitor and continue home medications. 5. PUD: continue home medications. 6. HTN: continue home medications. 7. Acute hypoxemic respiratory failure with history of DISH -continue to monitor
[2018-03-03] MEDS ORDERED: NS 1,000 ML IV SCH (19:30)
[2018-03-03] MEDS ORDERED: D50W 25 GM/50 ML SYR IVP PRN (20:10)
[2018-03-03] MEDS ORDERED: ACETAMINOPHEN 500 MG TAB PO PRN (21:17)
[2018-03-03] MEDS ORDERED: PROMETHAZINE HCL 25 MG TAB PO PRN (21:17)
[2018-03-03] MEDS ORDERED: HYOSCYAMINE SULFATE 0.125 MG TAB PO PRN (21:17)
[2018-03-03] MEDS: ROSUVASTATIN CALCIUM 40 MG TAB PO SCH (21:58)
[2018-03-03] MEDS: FAMOTIDINE 20 MG TAB PO SCH (21:58)
[2018-03-03] MEDS: CARVEDILOL 25 MG TAB PO SCH (22:07)
[2018-03-04] MEDS: ONDANSETRON 4 MG/2 ML VIAL IVP PRN ×2 (01:24→13:14)
[2018-03-04] MEDS: PANTOPRAZOLE SODIUM 40 MG TAB PO SCH ×2 (06:39→18:19)
[2018-03-04] MEDS: INSULIN LISPRO 100 UNIT/ML SC SCH ×3 (07:50→18:19)
--- NOTE | 2018-03-04 08:11 | ASMTLACE ---
ABILIO Comorbidities - select Answers: Coronary Artery Disease all that apply Diabetes (uncontrolled or controlled) Opioid dependence / Chronic pain Peptic ulcer disease Previous myocardial infarction Other Notes: HTN # of Emergency department Answers: 1-2 visits in the last 6 months Social determinants Answers: Mental health diagnosis (anxiety, depression, pers onality disorders, etc.) Score: 15 Date Signed: 03/04/2018 08:10 AM Electronically Signed By:America Gary
[2018-03-04] MEDS ORDERED: Herbals/Supplements -Info Only PO SCH (09:00)
[2018-03-04] MEDS ORDERED: INSULIN GLARGINE 100 UNITS/ML UNIT SC SCH (09:00)
[2018-03-04] MEDS: MULTIVITAMINS 1 EACH TAB PO SCH (10:13)
[2018-03-04] MEDS: FLUoxetine 20 MG CAP PO SCH (10:13)
[2018-03-04] MEDS: TAMSULOSIN HCL 0.4 MG CAP PO SCH (10:13)
[2018-03-04] MEDS: buPROPion SR 150 MG TAB PO SCH (10:13)
[2018-03-04] MEDS: CLOPIDOGREL BISULFATE 75 MG TAB PO SCH (10:13)
[2018-03-04] MEDS: (Empagliflozin [Jardiance] 25 MG) PO SCH (10:16)
[2018-03-04] MEDS: LISINOPRIL 10 MG TAB PO SCH (10:17)
[2018-03-04] MEDS: CARVEDILOL 25 MG TAB PO SCH ×2 (10:19→20:33)
[2018-03-04] MEDS: ONDANSETRON DISINTEGRATING 4 MG TAB PO PRN (11:14)
[2018-03-04] MEDS ORDERED: INSULIN GLARGINE 100 UNITS/ML UNIT SC ONE (11:45)
--- NOTE | 2018-03-04 13:35 | ASMTCMCOM ---
CM Note CM Note Notes: Patient plan of care reviewed in rounds. 77 year old male with extensive medical history admitted via ED for 5 days of anorexia and malaise, fever and diarrhea, Currently living independently with his . PT and OT to work with patient. Needs TBD at this time. Plan: TBD Date Signed: 03/04/2018 01:34 PM Electronically Signed By:Annie Urban RN
--- NOTE | 2018-03-04 16:13 | HOSPPROG ---
Hospitalist Progress Note Subjective: n Objective: Vital Signs Temp Pulse Resp BP Pulse Ox 36.7 C 81 16 111/67 93 03/04/18 14:45 03/04/18 14:45 03/04/18 14:45 03/04/18 14:45 03/04/18 14:45 Laboratory Results 03/04/18 04:20 03/03/18 03/04/18 03/05/18 05:59 05:59 05:59 Intake Total 1400 Output Total 250 700 Balance 1150 -700 ICD10 Worksheet Patient Problems: Problems Problem Status Onset Fever Acute Generalized weakness Acute Abrasion Acute CVA (cerebral vascular accident) Acute Chest pain Acute Fall Acute Frequent falls Acute Gait difficulty Acute STEMI (ST elevation myocardial infarction) Acute Shortness of breath Acute Upper GI hemorrhage Acute
--- NOTE | 2018-03-04 16:35 | HOSPPROG ---
Hospitalist Progress Note Assessment/Plan: 77 yo M w dm, DISH, cad, pvd here w likely viral gastroenteritis, hypovolemia, weakness weakness: attributable to viral illness, hypovolemia pt and ot evals hypovolemia: volume resuscitate gastroenteritis: benign abd exam diarrhea has decreased dm: cntinue lantus given lower dose this AM given poor po intake cad: BB/statin dispo: change to inpt Subjective: no diarrhea, no vomiting. cxr w no infiltrate (interp by me) Objective: Vital Signs Temp Pulse Resp BP Pulse Ox 36.7 C 81 16 111/67 93 03/04/18 14:45 03/04/18 14:45 03/04/18 14:45 03/04/18 14:45 03/04/18 14:45 Laboratory Results 03/04/18 04:20 03/03/18 03/04/18 03/05/18 05:59 05:59 05:59 Intake Total 1400 Output Total 250 700 Balance 1150 -700 - Physical Exam Constitutional: no apparent distress, appears nourished Eyes: PERRL, anicteric sclera Ears, Nose, Mouth, Throat: moist mucous membranes, hearing normal Cardiovascular: regular rate and rhythym, no murmur, rub, or gallop Respiratory: no respiratory distress, no rales or rhonchi Gastrointestinal: normoactive bowel sounds, soft, non-tender abdomen Genitourinary: no bladder fullness, No mckeon in urethra Skin: warm, normal color Musculoskeletal: no muscle tenderness, No full muscle strength ICD10 Worksheet Patient Problems: Problems Problem Status Onset Fever Acute Generalized weakness Acute Abrasion Acute CVA (cerebral vascular accident) Acute Chest pain Acute Fall Acute Frequent falls Acute Gait difficulty Acute STEMI (ST elevation myocardial infarction) Acute Shortness of breath Acute Upper GI hemorrhage Acute
[2018-03-04] MEDS: ROSUVASTATIN CALCIUM 40 MG TAB PO SCH (20:33)
[2018-03-04] MEDS: FAMOTIDINE 20 MG TAB PO SCH (20:33)
[2018-03-04] MEDS: NS 1,000 ML IV SCH (22:18)
[2018-03-04] MEDS: oxyCODONE IR 5 MG TAB PO PRN (22:18)
[2018-03-05] MEDS: INSULIN GLARGINE 100 UNITS/ML UNIT SC SCH (09:00)
[2018-03-05] MEDS: TAMSULOSIN HCL 0.4 MG CAP PO SCH (09:01)
--- NOTE | 2018-03-05 09:24 | PDMN ---
Medical Necessity Medical necessity: Changed to IP as of 03/04/2018 per and [facility] M-170; los > 2 mn for ongoing management of acute gastroenteritis with N/V, weakness and poor PO intake in the setting of insulin dependent DM; requiring further monitoring, IVF, IV anti-emetics and therapies. Comorbid CAD, PVD and advanced age.
[2018-03-05] MEDS: CARVEDILOL 25 MG TAB PO SCH ×2 (09:40→20:30)
[2018-03-05] MEDS: FLUoxetine 20 MG CAP PO SCH (09:40)
[2018-03-05] MEDS: MULTIVITAMINS 1 EACH TAB PO SCH (09:41)
[2018-03-05] MEDS: CLOPIDOGREL BISULFATE 75 MG TAB PO SCH (09:41)
[2018-03-05] MEDS: buPROPion SR 150 MG TAB PO SCH (09:41)
[2018-03-05] MEDS: PANTOPRAZOLE SODIUM 40 MG TAB PO SCH ×2 (09:41→17:14)
[2018-03-05] MEDS: (Empagliflozin [Jardiance] 25 MG) PO SCH (09:50)
[2018-03-05] MEDS: INSULIN LISPRO 100 UNIT/ML SC SCH ×3 (09:59→19:41)
[2018-03-05] MEDS: ONDANSETRON 4 MG/2 ML VIAL IVP PRN ×2 (10:37→15:56)
[2018-03-05] MEDS ORDERED: PROMETHAZINE HCL 25 MG/ML INJ IVP ONE (12:00)
[2018-03-05] MEDS: LISINOPRIL 10 MG TAB PO SCH (15:00)
[2018-03-05] MEDS: NS 1,000 ML IV SCH (15:56)
--- NOTE | 2018-03-05 17:05 | HOSPPROG ---
Hospitalist Progress Note Assessment/Plan: 77 yo M w dm, DISH, cad, pvd here w likely viral gastroenteritis, hypovolemia, weakness weakness: attributable to viral illness, hypovolemia pt/ot rec 24 hour care improving hypovolemia: volume resuscitated dc IVF gastroenteritis: benign abd exam diarrhea has decreased dm: lantus held this AM give 10 units this PM cad: BB/statin dispo: change to inpt I suspect he will do OK and be ready for dc 03/06 his prolonged stay likely 2/2 borderline functional status at home Subjective: poor po intake. ongoing weakness. insulin held this AM for hypoglycemia Objective: Vital Signs Temp Pulse Resp BP Pulse Ox 36.9 C 92 16 115/65 90 L 03/05/18 15:37 03/05/18 15:37 03/05/18 15:37 03/05/18 15:37 03/05/18 15:37 03/04/18 03/05/18 03/06/18 05:59 05:59 05:59 Intake Total 400 1460 Balance 400 1460 - Physical Exam Constitutional: no apparent distress, appears nourished Eyes: PERRL, anicteric sclera Ears, Nose, Mouth, Throat: moist mucous membranes, hearing normal Cardiovascular: regular rate and rhythym, no murmur, rub, or gallop Respiratory: no respiratory distress, no rales or rhonchi Gastrointestinal: normoactive bowel sounds, soft, non-tender abdomen, no palpable masses Genitourinary: no bladder fullness, No mckeon in urethra Skin: warm, normal color Musculoskeletal: full muscle strength, no muscle tenderness Neurologic: AAOx3 ICD10 Worksheet Patient Problems: Problems Problem Status Onset Fever Acute Generalized weakness Acute Abrasion Acute CVA (cerebral vascular accident) Acute Chest pain Acute Fall Acute Frequent falls Acute Gait difficulty Acute STEMI (ST elevation myocardial infarction) Acute Shortness of breath Acute Upper GI hemorrhage Acute
[2018-03-05] MEDS ORDERED: INSULIN GLARGINE 100 UNITS/ML UNIT SC ONE (17:10)
--- NOTE | 2018-03-05 17:26 | ASMTCMCOM ---
CM Note CM Note Notes: Pt lives at home with Jenn. Spoke to pt in the room. Pt open to receiving home care PT through [facility]. Referral sent. Pt likely to discharge tomorrow. CM to follow. D/C Plan: Home with [facility] Date Signed: 03/05/2018 05:25 PM Electronically Signed By:Norma Best
[2018-03-05] MEDS: oxyCODONE IR 5 MG TAB PO PRN (20:31)
[2018-03-05] MEDS: ONDANSETRON DISINTEGRATING 4 MG TAB PO PRN (20:31)
[2018-03-05] MEDS: ROSUVASTATIN CALCIUM 40 MG TAB PO SCH (20:31)
[2018-03-05] MEDS: FAMOTIDINE 20 MG TAB PO SCH (20:31)
[2018-03-06] MEDS: CLOPIDOGREL BISULFATE 75 MG TAB PO SCH (09:41)
[2018-03-06] MEDS: buPROPion SR 150 MG TAB PO SCH (09:41)
[2018-03-06] MEDS: TAMSULOSIN HCL 0.4 MG CAP PO SCH (09:41)
[2018-03-06] MEDS: MULTIVITAMINS 1 EACH TAB PO SCH (09:41)
[2018-03-06] MEDS: FLUoxetine 20 MG CAP PO SCH (09:42)
[2018-03-06] MEDS: LISINOPRIL 10 MG TAB PO SCH (09:42)
[2018-03-06] MEDS: CARVEDILOL 25 MG TAB PO SCH (09:42)
[2018-03-06] MEDS: (Empagliflozin [Jardiance] 25 MG) PO SCH (09:45)
[2018-03-06] MEDS: INSULIN LISPRO 100 UNIT/ML SC SCH ×2 (09:47→11:31)
[2018-03-06] MEDS: PANTOPRAZOLE SODIUM 40 MG TAB PO SCH (09:48)
[2018-03-06] MEDS: INSULIN GLARGINE 100 UNITS/ML UNIT SC SCH (10:28)
[2018-03-06] MEDS: ONDANSETRON 4 MG/2 ML VIAL IVP PRN (10:40)
[2018-03-06 12:58] VITALS: BP 98/50
--- NOTE | 2018-03-06 14:25 | PDIAF ---
- Diagnosis Code Status: Do Not Resuscitate - Medication Management Costume Technician Antibiotics: n/a Discharge Medications: electronically signed and located in the Home Medication List. PICC Care - Routine: N/A - Orders Services needed: Home Care, Registered Nurse (to check BP and blood sugars, I have significantly decreased his daily lantus dose, should check blood sugars 2- 4x a day until back to his 'normal diet/routine') Home Care Face to Face: I certify that this patient was under my care and that I had the required [id number] encounter meeting the encounter requirements on the discharge day. My findings support the fact that the patient is homebound as defined in Home Care Face to Face Continued: CMS Chapter 7 Medicare Benefits Manual 30.1.1 , The condition of the patient is such that there exists a normal inability to leave home and consequently, leaving home would require a considerable and taxing effort. Isolation Type: None Diet Recommendation: ADA 2000 consistent carb Diet Texture: Regular Texture Diet Weigh Patient: weekly Cameron: Not applicable Additional Instructions: I have significantly decreased daily lantus dose. Please check your blood sugars frequently but do not increase dosing without speaking with your primary Dr. - Follow Up Care Current Providers and Referrals: CLAYTON RODRIGUEZ [Primary Care Provider] - 3-5 days
--- NOTE | 2018-03-06 15:11 | ASDISCHSUM ---
Discharge Information Plan Status:Home with Home Health Medically Cleared to Leave:03/05/2018 Discharge Date:03/05/2018 CM D/C Disposition:Home Health Service ADT D/C Disposition:Home Health Service Projected Discharge Date:03/06/2018 11:00 AM Transportation at D/C:Family Discharge Delay Reason: Follow-Up Date:03/06/2018 11:00 AM Discharge Slot: Final Diagnosis:viral gastroenteritis, hypovolemia and weakness Placement Information Referral Type:*Home Health Care Services Referral ID:[id number] Provider Name:[facility] Care Address 1[address] Address 2: City:[place] Selection Factors: State:[place] Patient Contact Information Contact Name:JUAN LUIS Relationship: Address:[address] Work Phone: City:[place] Alternate Phone: State/Zip Code:[place] [address] Email: Financial Information Financial Class:Medicare Primary Plan Desc:MEDICARE INPATIENT Primary Plan Number:[id number] Secondary Plan Desc:TIMMY QUIJANO PPO [employer] Secondary Plan Number:[id number] Assessment Information LACE LACE Comorbidities - select Answers: Coronary Artery Disease all that apply Diabetes (uncontrolled or controlled) Opioid dependence / Chronic pain Peptic ulcer disease Previous myocardial infarction Other Notes: HTN # of Emergency department Answers: 1-2 visits in the last 6 months Social determinants Answers: Mental health diagnosis (anxiety, depression, pers onality disorders, etc.) Score: 15 Date Signed: 03/04/2018 08:10 AM Electronically Signed By:America Gary [facility] CM Progress Note CM Note CM Note Notes: Patient plan of care reviewed in rounds. 77 year old male with extensive medical history admitted via ED for 5 days of anorexia and malaise, fever and diarrhea, Currently living independently with his . PT and OT to work with patient. Needs TBD at this time. Plan: TBD Date Signed: 03/04/2018 01:34 PM Electronically Signed By:Annie Urban RN [facility] CM Progress Note CM Note CM Note Notes: Pt lives at home with Jenn. Spoke to pt in the room. Pt open to receiving home care PT through [facility]. Referral sent. Pt likely to discharge tomorrow. CM to follow. D/C Plan: Home with [facility] Date Signed: 03/05/2018 05:25 PM Electronically Signed By:Norma Best Case Management Discharge Plan Note Case Management Discharge Discharge Order Complete? Answers: Yes Patient to Obtain Answers: via Family Medications Transportation Arranged Answers: Family/Friends Transport will Pick (Date 03/06/2018 03:00 PM & Time) Faxed Final Orders Answers: Yes Agency/Facility Transfer Answers: Yes Report Printed & Faxed to Receiving Agency Family Notified Answers: Yes Notes: pt called Discharge Comments Notes: Pt to discharge home with Jenn. [facility] RN and PT ordered and notified. No further CM needs noted at this time. Date Signed: 03/06/2018 02:58 PM Electronically Signed By:Norma Bset Intervention Information
== END 2018-03-06 15:21 | disposition home health service (06) | DRG 392 ==
LOC: F1N 19:38 → OBSVTOIN 03-04 16:36
PROVIDERS: ADMIT Family Medicine; ATTEND Family Medicine
DX: A08.4 Viral intestinal infection, unspecified (principal); I25.10 Atherosclerotic heart disease of native coronary artery without angina pectoris; I25.2 Old myocardial infarction; I10 Essential (primary) hypertension; E86.1 Hypovolemia; E11.9 Type 2 diabetes mellitus without complications; G47.33 Obstructive sleep apnea (adult) (pediatric); M48.10 Ankylosing hyperostosis [Forestier], site unspecified; K58.9 Irritable bowel syndrome, unspecified; Z95.5 Presence of coronary angioplasty implant and graft; Z87.11 Personal history of peptic ulcer disease
CPT/HCPCS: 96374; 97116-GP; 97161-GP; G0378; G8978-GP-CJ; G8979-GP-CI; J1815; J2405; J2550

== ENCOUNTER 2018-05-10 19:43 | Inpatient (IN) | payer OTHER ==
[2018-05-10] MEDS ORDERED: NS 1,000 ML IV ONE (19:51)
--- NOTE | 2018-05-10 19:58 | EDPHY ---
H & P Time Seen by Provider: 05/10/18 19:52 HPI/ROS: HPI CHIEF COMPLAINT: Hypoglycemia. Blood sugar 31 in the field, unresponsive. HISTORY OF PRESENT ILLNESS: 77-year-old male, diabetic, takes 70 units of insulin Lantus in the morning. Additionally he takes Jardiance an oral agent. His found him on the ground diaphoretic and confused and moaning. The EMS arrived to find his blood sugar 31. They gave him a D10 250 mL IV which brought her sugar up to 46. They then subsequently gave him D50 1 amp. Blood sugar now 110. He arrives to the emergency room he is lucid, answer questions appropriately no acute distress denies any complaints. He states he is unsure what happened He does recall that he took 70 units of Lantus this morning he typically gets up around 1-2 o'clock in the afternoon as he goes to bed at 2:00 a.m.. This is normal routine. He took his 70 units of Lantus around 1-2 o'clock when he got up. He also took his Jardiance which is an oral agent. Patient does report to me that he did not eat much today. I did speak with poison Control about the oral agent they do recommend 12 hr of observation for recurrence of hypoglycemia. Here in emergency plan will be for IV establishment blood draw, oral food. And q.1 hour blood sugar checks. Un-intentional insulin overdose. Past Medical History: Insulin-dependent diabetes, type 2 diabetes, coronary artery disease Past Surgical History: No recent surgical history Social History: He denies drugs alcohol tobacco. Family History: Noncontributory ROS REVIEW OF SYSTEMS: 10 Systems were reviewed and negative with the exception of the elements mentioned in the history of present illness. Exam Constitutional appears well nontoxic no acute distress, triage nursing summary reviewed, vital signs reviewed, awake/alert. Eyes normal conjunctivae and sclera, EOMI, PERRLA. HENT normal inspection, atraumatic, moist mucus membranes, no epistaxis, neck supple/ no meningismus, no raccoon eyes. Respiratory clear to auscultation bilaterally, normal breath sounds, no respiratory distress, no wheezing. Cardiovascular rate normal, regular rhythm, no murmur, no edema, distal pulses normal. Gastrointestinal soft, non-tender, no rebound, no guarding, normal bowel sounds, no distension, no pulsatile mass. Genitourinary no CVA tenderness. Musculoskeletal no midline vertebral tenderness, full range of motion, no calf swelling, no tenderness of extremities, no meningismus, good pulses, neurovascularly intact. Skin at the gluteal fold top midline mild erythema otherwise no skin breakdown, pink, warm, & dry, no rash, skin atraumatic. Neurologic awake, alert and oriented x 3, AAOx3, moves all 4 extremities equally, motor intact, sensory intact, CN II-XII intact, normal cerebellar, normal vision, normal speech. Psychiatric normal mood/affect. Heme/Lymph/Immune no lymphadenopathy. Differential Diagnosis: Includes but is not limited to in a particular order accidental insulin overdose, oral hypoglycemic causing hypoglycemia, renal failure, dehydration, electrolyte disturbance, sepsis, bacteremia Medical Decision Making: Plan for this patient q.1 hour Accu-Cheks, feet patient, IV establishment blood draw, basic blood work, check kidney function and re-evaluate. Re-evaluation: 2142: Patient's blood sugar 51. This is despite eating 1 sandwich, 5 apple juice. Blood sugar repeat is 51. Will place on dextrose 10 drip. Patient need to be admitted the hospitalist service Will need to monitor sugar closely. Spoke with the hospitalist service Dr. Johnson who agrees to admit. 2149: Plan for ICU admission for close monitoring. Due to recurrent hypoglycemia despite large amount of glucose here in the emergency room. D 10 ordered. Plan for admission to the ICU for close observation. Critical Care: Total Critical Care Time Spent Managing this Patient: 65 Minutes. This time was spent Exclusively with this patient. This Care was exclusive of procedures. The Organ System/life at risk was persistent hypoglycemia due to insulin overdose This Patient was in Critical Condition because severe hypoglycemia Source: Patient, EMS - Personal History Tetanus Vaccine Date: < 10 years - Medical/Surgical History Hx Asthma: No Hx Chronic Respiratory Disease: Yes Hx Diabetes: Yes Hx Cardiac Disease: Yes Hx Renal Disease: No Hx Cirrhosis: No Hx Alcoholism: No Hx HIV/AIDS: No Hx Splenectomy or Spleen Trauma: No Other PMH: Irritable bowel, bowel obstruction 12 years ago , appy, hernia, Type II diabetic, spine problems (cortisone injection, HTN , depression, cpap at night, spinal fusion, endoscopy, heart stents 07/2014, CA, bronchitis, DISH - Social History Smoking Status: Never smoked Constitutional: Initial Vital Signs Temperature (C) 36.7 C 05/10/18 19:45 Heart Rate 74 05/10/18 19:45 Respiratory Rate 18 05/10/18 19:45 Blood Pressure 142/78 H 05/10/18 19:45 O2 Sat (%) 100 05/10/18 19:45 O2 Delivery Mode Room Air Allergies/Adverse Reactions: No Known Allergies Allergy (Verified 05/10/18 20:02) Home Medications: Medication Instructions Recorded Carvedilol [Coreg (*)] 12.5 mg PO BIDMEAL 09/20/15 Empagliflozin [Jardiance] 25 mg PO DAILY 09/20/15 FLUoxetine [Prozac 20 MG (*)] 60 mg PO DAILY 09/20/15 Multivitamins [Multivitamin (*)] 1 each PO DAILY 09/20/15 Rosuvastatin Calcium [Crestor 40mg 40 mg PO HS 09/20/15 (*)] Hyoscyamine Sulfate [Levsin, 0.125 mg PO Q6 PRN 11/03/16 Hyomax-Sl 0.125 mg (*)] Clopidogrel Bisulfate [Plavix (*)] 75 mg PO DAILY 05/22/17 Lisinopril [Zestril 10 mg (*)] 10 mg PO DAILY 05/22/17 Pantoprazole Sodium [Protonix 40mg 40 mg PO BIDAC 05/22/17 (*)] Ranitidine HCl [Zantac] 300 mg PO HS 05/22/17 Tamsulosin HCl [Flomax 0.4 MG (*)] 0.4 mg PO DAILY 05/22/17 buPROPion SR [Wellbutrin 150mg SR 150 mg PO DAILY 05/22/17 (*)] Acetaminophen [Tylenol ES 500 mg 1,000 mg PO TID PRN tab 05/26/17 (*)] Polyethylene Glycol 3350 [Miralax 17 gm PO DAILY PRN pkt 05/26/17 17 gm (*)] Ondansetron Odt [Zofran Odt 4 mg 4 mg PO Q4HRS PRN #30 tab 03/06/18 (*)] Insulin Glargine [Lantus Syringe] 70 units SC DAILY 05/11/18 oxyCODONE IR [Oxycodone Ir (*)] 5 mg PO Q4HRS PRN 05/11/18 Medical Decision Making - Data Points Laboratory Results: Laboratory Results 05/10/18 19:59 05/10/18 19:59 Medications Given: Acetaminophen (Tylenol) 650 mg PO Q4HRS PRN PRN Reason: Pain, Mild/Fever, Can Take PO Stop: 11/06/18 21:48 Last Admin: 05/11/18 01:49 Dose: 650 mg Acetaminophen (Tylenol) 1,000 mg PO TID PRN PRN Reason: Pain, Mild/Fever, Can Take PO Stop: 11/07/18 12:25 Last Admin: 05/11/18 20:18 Dose: 1,000 mg Bupropion HCl (Wellbutrin Sr) 150 mg PO DAILY DARREN Stop: 11/07/18 12:29 Last Admin: 05/11/18 13:21 Dose: 150 mg Carvedilol (Coreg) 12.5 mg PO BIDMEAL [facility] Stop: 11/07/18 17:59 Last Admin: 05/11/18 16:47 Dose: 12.5 mg Clopidogrel Bisulfate (Plavix) 75 mg PO DAILY DARREN Stop: 11/07/18 12:29 Last Admin: 05/11/18 13:17 Dose: 75 mg Enoxaparin Sodium (Lovenox) 40 mg SC DAILY [facility] Stop: 11/07/18 08:59 Last Admin: 05/11/18 09:27 Dose: 40 mg Famotidine (Pepcid) 40 mg PO HS [facility] Stop: 11/07/18 20:59 Last Admin: 05/11/18 20:17 Dose: 40 mg Fluoxetine HCl (Prozac) 60 mg PO DAILY [facility] Stop: 11/07/18 12:29 Last Admin: 05/11/18 13:17 Dose: 60 mg Dextrose (D10w) 1,000 mls @ 50 mls/hr IV CONT [facility] Stop: 11/06/18 21:44 Last Admin: 05/11/18 05:48 Dose: 1,000 mls Insulin Human Regular (Humulin R) 0 unit SC ACHS DARREN PRN Reason: Protocol Stop: 11/07/18 17:29 Last Admin: 05/11/18 17:49 Dose: Not Given Oxycodone HCl (Oxycodone Ir) 5 mg PO Q4HRS PRN PRN Reason: Pain, Severe Able to Take PO Stop: 05/21/18 16:28 Last Admin: 05/11/18 20:17 Dose: 5 mg Pantoprazole Sodium (Protonix) 40 mg PO BIDAC DARREN Stop: 11/07/18 17:29 Last Admin: 05/11/18 16:47 Dose: 40 mg Rosuvastatin Calcium (Crestor) 40 mg PO HS DARREN Stop: 11/07/18 20:59 Last Admin: 05/11/18 20:17 Dose: 40 mg Tamsulosin HCl (Flomax) 0.4 mg PO DAILY DARREN Stop: 11/07/18 12:29 Last Admin: 05/11/18 13:17 Dose: 0.4 mg Discontinued Medications Dextrose (Dextrose 50% Syringe) 25 gm IVP ONCE ONE Stop: 05/11/18 04:31 Last Admin: 05/11/18 04:45 Dose: 25 gm Dextrose (Dextrose 50% Syringe) 25 gm IVP ONCE ONE Stop: 05/11/18 05:46 Last Admin: 05/11/18 05:45 Dose: 25 gm Sodium Chloride (Ns) 1,000 mls @ 0 mls/hr IV EDNOW ONE; Wide Open PRN Reason: Protocol Stop: 05/10/18 19:52 Last Admin: 05/10/18 20:08 Dose: 1,000 mls Potassium Chloride (Klor-Con) 40 meq PO ONCE ONE Stop: 05/11/18 07:58 Last Admin: 05/11/18 09:27 Dose: 40 meq Point of Care Test Results: Chemistry 05/10/18 05/10/18 05/10/18 21:37 20:51 20:03 POC Glucose 58 mg/dL L mg/dL 91 mg/dL mg/dL 81 mg/dL mg/dL (70-100) (70-100) (70-100) Departure - Departure Disposition: [facility] Inpatient Acute Clinical Impression: Hypoglycemia Insulin overdose Qualifiers: Encounter type: initial encounter Injury intent: undetermined intent Qualified Code(s): T38.3X4A - Poisoning by insulin and oral hypoglycemic [antidiabetic] drugs, undetermined, initial encounter Condition: Critical
[2018-05-10 20:18] LABS: PLATELET COUNT 294 10^3/uL (150-400)
[2018-05-10] MEDS ORDERED: ACETAMINOPHEN 325 MG TAB PO PRN (21:49)
[2018-05-10] MEDS ORDERED: ONDANSETRON 4 MG/2 ML VIAL IVP PRN (21:49)
[2018-05-10] MEDS ORDERED: ONDANSETRON DISINTEGRATING 4 MG TAB PO PRN (21:49)
[2018-05-10] MEDS: D10W 1,000 ML IV SCH (21:55)
--- NOTE | 2018-05-10 22:41 | PDGENHP ---
History and Physical - Chief Complaint confusion, hypoglycemia - History of Present Illness 77yo M with insulin-dependent diabetes, CAD/WA s/p stents who was brought in by paramedics after found him on the ground. He was reportedly diaphoretic and confused. It is unclear how long he was on the ground. The patient remembers waking up around 11am (which is typical), eating breakfast and possibly taking his insulin. He does not remember anything else until being awoken by EMS. Upon EMS arrival, his blood sugar was 31. They gave him 250ml of D10 which brought glucose up to 46 and then he received 1 amp of D50. Blood glucose was 110 upon arrival to the ED and patient was alert, lucid, and answering questions appropriately. He reports taking 70 units of glargine daily. He checks his sugars when he wakes up around noon and they are typically 70-80s. He denies having any hypoglycemic episodes recently but also denies really knowing what these symptoms would be. He denies any suicidal intention. No recent infectious symptoms. He has had increased soreness in his buttock area where he recently had a small abscess I&D'd by his PCP. In the ED, his blood sugar dropped back to 51 despite eating a sandwich and 5 apple juices. He was placed on a D10 drip. Case discussed with ED physician Arnaud Mike. History Information - Allergies/Home Medication List Allergies/Adverse Reactions: No Known Allergies Allergy (Verified 05/10/18 20:02) Home Medications: Carvedilol [Coreg (*)] 12.5 mg PO BID 09/20/15 [Last Taken 03/02/18] Empagliflozin [Jardiance] 25 mg PO DAILY 09/20/15 [Last Taken 03/02/18] FLUoxetine [Prozac 20 MG (*)] 60 mg PO DAILY 09/20/15 [Last Taken 03/03/18] Multivitamins [Multivitamin (*)] 1 each PO DAILY 09/20/15 [Last Taken 03/02/18] Rosuvastatin Calcium [Crestor 40mg (*)] 40 mg PO HS 09/20/15 [Last Taken ] Hyoscyamine Sulfate [Levsin, Hyomax-Sl 0.125 mg (*)] 0.125 mg PO Q6 PRN 07/09/ 17 [Last Taken 03/02/18] Clopidogrel Bisulfate [Plavix (*)] 75 mg PO DAILY 05/22/17 [Last Taken 03/02/18] Lisinopril [Zestril 10 mg (*)] 10 mg PO DAILY 05/22/17 [Last Taken 03/02/18] Pantoprazole Sodium [Protonix 40mg (*)] 40 mg PO BIDAC 05/22/17 [Last Taken 09/12] Ranitidine HCl [Zantac] 300 mg PO HS 05/22/17 [Last Taken 03/02/18] Tamsulosin HCl [Flomax 0.4 MG (*)] 0.4 mg PO DAILY 05/22/17 [Last Taken 03/02/18 ] buPROPion SR [Wellbutrin 150mg SR (*)] 150 mg PO DAILY 05/22/17 [Last Taken 09/12] I have personally reviewed and updated: family history, medical history, social history, surgical history - Past Medical History Additional medical history: CAD/WA s/p 2 stents in 2014, peptic ulcer disease, HTN, T2DM, SRINIVASA on CPAP, IBS, DISH, BPH - Surgical History Additional surgical history: appendectomy, cholecystectomy - Family History Positive for: cancer (Father), CAD (Mother) - Social History Smoking Status: Never smoked Alcohol Use: None Drug Use: None Additional social history: Lives with Review of Systems Review of Systems: ROS: 10pt was reviewed & negative except for what was stated in HPI & below Physical Exam Physical Exam: Temp Pulse Resp BP Pulse Ox 36.4 C 66 18 105/69 94 05/10/18 21:17 05/10/18 22:38 05/10/18 22:38 05/10/18 22:38 05/10/18 22:38 Constitutional: no apparent distress, appears nourished, not in pain Eyes: PERRL, anicteric sclera, EOMI Ears, Nose, Mouth, Throat: moist mucous membranes, hearing normal, ears appear normal, no oral mucosal ulcers Cardiovascular: regular rate and rhythym, no murmur, rub, or gallop, No edema Respiratory: no respiratory distress, no rales or rhonchi, clear to auscultation Gastrointestinal: normoactive bowel sounds, soft, non-tender abdomen, no palpable masses Genitourinary: no bladder fullness, no bladder tenderness Skin: other (mild erythema on superior gluteal cleft, small indurated area without purulence in upper left gluteal cleft) Musculoskeletal: full muscle strength, no muscle tenderness, normal joint ROM, no joint effusions Neurologic: AAOx3 Psychiatric: interacting appropriately, not anxious, not encephalopathic, thought process linear Lab Data & Imaging Review 05/10/18 19:59 05/10/18 19:59 WBC 10.93 10^3/uL (3.80-9.50) H 05/10/18 19:59 RBC 5.51 10^6/uL (4.40-6.38) 05/10/18 19:59 Hgb 14.9 g/dL (13.7-17.5) 05/10/18 19:59 Hct 48.0 % (40.0-51.0) 05/10/18 19:59 MCV 87.1 fL (81.5-99.8) 05/10/18 19:59 MCH 27.0 pg (27.9-34.1) L 05/10/18 19:59 MCHC 31.0 g/dL (32.4-36.7) L 05/10/18 19:59 RDW 16.1 % (11.5-15.2) H 05/10/18 19:59 Plt Count 294 10^3/uL (150-400) 05/10/18 19:59 MPV 10.4 fL (8.7-11.7) 05/10/18 19:59 Neut % (Auto) 78.3 % (39.3-74.2) H 05/10/18 19:59 Lymph % (Auto) 10.8 % (15.0-45.0) L 05/10/18 19:59 Reeves % (Auto) 6.5 % (4.5-13.0) 05/10/18 19:59 Eos % (Auto) 3.6 % (0.6-7.6) 05/10/18 19:59 Baso % (Auto) 0.5 % (0.3-1.7) 05/10/18 19:59 Nucleat RBC Rel Count 0.0 % (0.0-0.2) 05/10/18 19:59 Absolute Neuts (auto) 8.57 10^3/uL (1.70-6.50) H 05/10/18 19:59 Absolute Lymphs (auto) 1.18 10^3/uL (1.00-3.00) 05/10/18 19:59 Absolute Monos (auto) 0.71 10^3/uL (0.30-0.80) 05/10/18 19:59 Absolute Eos (auto) 0.39 10^3/uL (0.03-0.40) 05/10/18 19:59 Absolute Basos (auto) 0.05 10^3/uL (0.02-0.10) 05/10/18 19:59 Absolute Nucleated RBC 0.00 10^3/uL (0-0.01) 05/10/18 19:59 Immature Gran % 0.3 % (0.0-1.1) 05/10/18 19:59 Immature Gran # 0.03 10^3/uL (0.00-0.10) 05/10/18 19:59 Sodium 141 mEq/L (135-145) 05/10/18 19:59 Potassium 4.0 mEq/L (3.5-5.2) 05/10/18 19:59 Chloride 108 mEq/L (97-110) 05/10/18 19:59 Carbon Dioxide 27 mEq/l (22-31) 05/10/18 19:59 Anion Gap 6 mEq/L (6-14) 05/10/18 19:59 BUN 19 mg/dL (7-23) 05/10/18 19:59 Creatinine 1.0 mg/dL (0.7-1.3) 05/10/18 19:59 Estimated GFR > 60 05/10/18 19:59 Glucose 86 mg/dL (70-100) 05/10/18 19:59 POC Glucose 255 mg/dL (70-100) H 05/10/18 22:15 Calcium 8.8 mg/dL (8.5-10.4) 05/10/18 19:59 Total Bilirubin 0.6 mg/dL (0.1-1.4) 05/10/18 19:59 Conjugated Bilirubin 0.3 mg/dL (0.0-0.5) 05/10/18 19:59 Unconjugated Bilirubin 0.3 mg/dL (0.0-1.1) 05/10/18 19:59 AST 42 IU/L (17-59) 05/10/18 19:59 ALT 38 IU/L (21-72) 05/10/18 19:59 Alkaline Phosphatase 114 IU/L (38-126) 05/10/18 19:59 Total Protein 6.5 g/dL (6.3-8.2) 05/10/18 19:59 Albumin 3.9 g/dL (3.5-5.0) 05/10/18 19:59 Lipase 107 IU/L (23-300) 05/10/18 19:59 Urine Color LT. YELLOW 05/10/18 19:55 Urine Appearance CLEAR 05/10/18 19:55 Urine pH 7.0 (5.0-7.5) 05/10/18 19:55 Ur Specific [place] 1.015 (1.002-1.030) 05/10/18 19:55 Urine Protein NEGATIVE (NEGATIVE) 05/10/18 19:55 Urine Ketones NEGATIVE (NEGATIVE) 05/10/18 19:55 Urine Blood NEGATIVE (NEGATIVE) 05/10/18 19:55 Urine Nitrate NEGATIVE (NEGATIVE) 05/10/18 19:55 Urine Bilirubin NEGATIVE (NEGATIVE) 05/10/18 19:55 Urine Urobilinogen 0.2 EU (0.2-1.0) 05/10/18 19:55 Ur Leukocyte Esterase NEGATIVE (NEGATIVE) 05/10/18 19:55 Urine RBC NONE SEEN /hpf (0-3) 05/10/18 19:55 Urine WBC 3-5 /hpf (0-3) H 05/10/18 19:55 Ur Epithelial Cells TRACE /lpf (NONE-1+) 05/10/18 19:55 Urine Bacteria 1+ /hpf (NONE SEEN) H 05/10/18 19:55 Urine Mucus TRACE /lpf (NONE-1+) 05/10/18 19:55 Urine Glucose 2+ (NEGATIVE) H 05/10/18 19:55 Assessment & Plan Assessment: 77yo M with insulin-dependent diabetes, CAD/WA s/p stents who was brought in by paramedics after found him confused and diaphoretic on the ground. He was severely hypoglycemic. Plan: 1. Acute symptomatic hypoglycemia: Somewhat refractory to therapies in the ED. This is almost undoubtedly driven by excess exogenous insulin. He was recently discharged on glargine 20u/day and is now taking 70u/day. - Continue D10 gtt with q1h glucose checks - Hold insulin and jardiance (oral hypoglycemic) - His home insulin regimen will certainly need to be adjusted 2. Acute metabolic encephalopathy: Related to hypoglycemia and this has now resolved with improved BG. No focal neurologic deficits. - Close BG monitoring as above - Check CK given unknown down time 3. T2DM: Recent A1c of 5.9%. Reports fasting BG in 70s at home. Holding therapies as above. Will need close outpatient follow up. 4. CAD/WA s/p stents: No anginal symptoms. Continue plavix, statin, beta delilah. 5. HTN: Home meds once med rec complete. 6. Depression,anxiety:Home meds once med rec complete. 7. PUD: Home PPI/H2RA once med rec complete. VTE ppx: LMWH Code: full Diet: regular Dispo: Admit under observation I spent a total of 35 minutes of critical care time with this patient.
[2018-05-10] MEDS ORDERED: D50W 25 GM/50 ML SYR IVP ONE (23:10)
[2018-05-11] MEDS ORDERED: D50W 25 GM/50 ML SYR IVP ONE ×2 (04:30→05:45)
[2018-05-11 05:11] LABS: CREATINE KINASE 78 IU/L (0-224)
[2018-05-11] MEDS: D10W 1,000 ML IV SCH (05:48)
[2018-05-11] MEDS ORDERED: POTASSIUM CL 20 MEQ TAB PO ONE (07:57)
[2018-05-11] MEDS: ENOXAPARIN 40 MG/0.4 ML SYR SC SCH (09:27)
--- NOTE | 2018-05-11 11:51 | ASMTCASEMG ---
Living Arrangements What is your living Answers: With Spouse arrangement? Who do you live with? Type Of Residence What kind of residence do Answers: House you live in? Discharge Plan Comments Coordination Status Comments Notes: Patient is a 77yo male with insulin dependent diabetes who was brought EMS after his found him confused and diaphoretic on the ground. Patient has been admitted for acute sympotomatic hypoglycemia, acute metabolic encephalopathy. No therapies ordered at this time. D/C plan TBD. CM will follow. Date Signed: 05/11/2018 11:50 AM Electronically Signed By:Emiliana Ramírez LCSW
--- NOTE | 2018-05-11 12:25 | HOSPPROG ---
Hospitalist Progress Note Assessment/Plan: A 77-year-old man with a history of insulin-dependent diabetes is admitted with altered mental status and found to be profoundly hypoglycemic. He is followed by Dr. Miller, and admits to monitoring and managing his on insulin dosing at home. Recently he was discharged on Lantus 20 units daily and as he was a meeting for blood sugar in the 70s to 80s he had increased his Lantus from 20 units to 70 units daily. I suspect this is the cause of his hypoglycemia as there is no obvious infectious etiology found. He was treated appropriately with D50 and D10 drips and has stabilized his blood sugar at this time. # hypoglycemia in the setting of type 2 diabetes on insulin * Will monitor him with out insulin. If he starts to become hyperglycemic can add sliding scale insulin and adjust this to Lantus at discharge. Will hold Lantus at this time. * Will need additional 24 hr stay to follow his blood sugars given his profound hypoglycemia on admission and ongoing need for D10. * He will need close follow-up with his primary care provider and be advised to not adjust his own insulin without his doctor's follow-up # type 2 diabetes, patient likely needs more education is hemoglobin A1c is 5.9 and his blood sugar goals are far too low for his age and disease. I recommend he aim for a fasting blood sugar in the 100-140 range rather than the 70-80 range. * Close follow-up in education by his PCP # coronary artery disease status post stents, currently asymptomatic will continue his usual medications * Currently on Coreg, Crestor and lisinopril and Plavix # depression, on Prozac and Wellbutrin # BPH on tamsulosin # GE reflux disease on the PPI # obstructive sleep apnea on CPAP # DISH # IBS Subjective: Patient new to me and chart reviewed. Continues to have episodes of hypoglycemia really cannot recall when his last dose of insulin as I suspect he has some retrograde amnesia and cannot recall taking it the day of his admission. Objective: Vital Signs Temp Pulse Resp BP Pulse Ox 36.8 C 83 12 133/76 H 97 05/11/18 10:00 05/11/18 12:00 05/11/18 12:00 05/11/18 12:00 05/11/18 12:00 Laboratory Results 05/11/18 06:15 05/10/18 05/11/18 05/12/18 05:59 05:59 05:59 Intake Total 1955 Output Total 586 731 Balance 1181 -092 - Physical Exam Constitutional: no apparent distress, not in pain Eyes: PERRL Ears, Nose, Mouth, Throat: moist mucous membranes Cardiovascular: regular rate and rhythym Respiratory: no respiratory distress, clear to auscultation Gastrointestinal: soft, non-tender abdomen Genitourinary: no bladder fullness Skin: warm, normal color Musculoskeletal: full muscle strength Neurologic: AAOx3 Psychiatric: interacting appropriately, not anxious ICD10 Worksheet Patient Problems: Problems Problem Status Onset Hypoglycemia Acute Insulin overdose Acute Abrasion Acute CVA (cerebral vascular accident) Acute Chest pain Acute Fall Acute Fever Acute Frequent falls Acute Gait difficulty Acute Generalized weakness Acute STEMI (ST elevation myocardial infarction) Acute Shortness of breath Acute Upper GI hemorrhage Acute
[2018-05-11] MEDS ORDERED: ACETAMINOPHEN 500 MG TAB PO PRN (12:26)
[2018-05-11] MEDS ORDERED: HYOSCYAMINE SULFATE 0.125 MG TAB PO PRN (12:26)
[2018-05-11] MEDS ORDERED: POLYETHYLENE GLYCOL 3350 17 GM PKT PO PRN (12:26)
[2018-05-11] MEDS ORDERED: D50W 25 GM/50 ML SYR IVP PRN (12:36)
[2018-05-11] MEDS: TAMSULOSIN HCL 0.4 MG CAP PO SCH (13:17)
[2018-05-11] MEDS: CLOPIDOGREL BISULFATE 75 MG TAB PO SCH (13:17)
[2018-05-11] MEDS: FLUoxetine 20 MG CAP PO SCH (13:17)
[2018-05-11] MEDS: buPROPion SR 150 MG TAB PO SCH (13:21)
[2018-05-11] MEDS: CARVEDILOL 25 MG TAB PO SCH (16:47)
[2018-05-11] MEDS: oxyCODONE IR 5 MG TAB PO PRN ×2 (16:47→20:17)
[2018-05-11] MEDS: PANTOPRAZOLE SODIUM 40 MG TAB PO SCH (16:47)
[2018-05-11] MEDS: INSULIN REGULAR HUMAN 100 UNIT/ML UNIT SC SCH ×2 (17:49→22:11)
[2018-05-11] MEDS ORDERED: FAMOTIDINE 20 MG TAB PO SCH (21:00)
[2018-05-11] MEDS ORDERED: ROSUVASTATIN CALCIUM 40 MG TAB PO SCH (21:00)
--- NOTE | 2018-05-12 06:25 | PDMN ---
Medical Necessity Medical necessity: Pt meets IP criteria as of 05/11/2018 per and MCG M-134 ( Diabetes, Hypoglycemia); los > 2 mn for ongoing tx and care of hypoglycemia that has persisted despite observation care likely d/t to self administration of the wrong dose of Lantus; requiring further monitoring, D10 administraion and patient education.
[2018-05-12] MEDS: INSULIN REGULAR HUMAN 100 UNIT/ML UNIT SC SCH ×2 (08:20→11:30)
[2018-05-12] MEDS: CARVEDILOL 25 MG TAB PO SCH (08:52)
[2018-05-12] MEDS: CLOPIDOGREL BISULFATE 75 MG TAB PO SCH (08:54)
[2018-05-12] MEDS: PANTOPRAZOLE SODIUM 40 MG TAB PO SCH (08:54)
[2018-05-12] MEDS: buPROPion SR 150 MG TAB PO SCH (08:54)
[2018-05-12] MEDS: TAMSULOSIN HCL 0.4 MG CAP PO SCH (08:55)
[2018-05-12] MEDS: ENOXAPARIN 40 MG/0.4 ML SYR SC SCH (08:55)
[2018-05-12] MEDS: FLUoxetine 20 MG CAP PO SCH (08:55)
[2018-05-12 08:58] VITALS: BP 139/70
[2018-05-12] MEDS ORDERED: MULTIVITAMINS 1 EACH TAB PO SCH (09:00)
[2018-05-12] MEDS ORDERED: LISINOPRIL 10 MG TAB PO SCH (09:00)
--- NOTE | 2018-05-12 11:30 | GDS ---
DIAGNOSES: 1. Hypoglycemia secondary to insulin. 2. Type 2 diabetes. 3. Coronary artery disease, status post stents, asymptomatic. 4. Depression. 5. Benign prostatic hypertrophy. 6. Gastroesophageal reflux disease. 7. Obstructive sleep apnea, on Continuous Positive Airway Pressure. 8. Irritable bowel syndrome. HOSPITAL COURSE: The patient is a 77-year-old with a history of type 2 diabetes. He aims for a fast ing blood sugar in the 70-80 range. He was just recently admitted with similar symptoms a few months ago. At that time, it was thought his hypoglycemia was associated with diarrhea and poor p.o. intak e. He was discharged on a lower dose of glargine of 20 units daily. He typically goes to bed at 1 o r 2 in the morning, wakes up at noon and takes his insulin. Over the course of the last month or 2, he has been steadily increasing his insulin use to obtain a fasting level of 70, to a point where he was on 70 units daily at the time of admission. He was found unresponsive, blood sugar was 20, and h e was brought into the hospital, placed on a D10 drip, and it took him well over 24-48 hours to clear the insulin and have his blood sugars stabilize off a D10/D5 drip. Currently, his blood sugars are in the mid 100s without any insulin. He is back to baseline and doing well; however, he does need so me more education about appropriate sugar levels for a type 2 diabetic on insulin. At this time, I d id tell him his fasting blood sugars should be at least 120, and he should not aim to have it below 1 00 or he is at high risk for hypoglycemia. I will discharge him on his Jardiance and no insulin. He is to monitor his blood sugars 3 times a day and report in to his primary care provider to discuss r esumption of insulin if needed. If he has 2 or more readings greater than 200, he can resume Lantus at 15 units a day, again, following up with his primary care provider before adjusting it any further . CONDITION ON DISCHARGE: Good. Vital signs are stable. Blood sugar was 158. DISCHARGE MEDICATIONS: Please see discharge medication form. He will resume his home meds, except t he insulin has been on hold. Followup will be with his primary care provider this week, Dr. Miller . Total time spent with the patient on the day of discharge and coordination of care is 35 minutes. /[id number]/MODL
== END 2018-05-12 13:00 | disposition home or self-care (01) | DRG 639 ==
LOC: EDUNIT# → INTOOBSV 21:48 → F2N 23:04 → OBSVTOIN 05-11 12:26
PROVIDERS: ADMIT Internal Medicine; ATTEND Internal Medicine
DX: E11.649 Type 2 diabetes mellitus with hypoglycemia without coma (principal); T38.3X1A Poisoning by insulin and oral hypoglycemic [antidiabetic] drugs, accidental (unintentional), initial encounter; G92 Toxic encephalopathy; I25.10 Atherosclerotic heart disease of native coronary artery without angina pectoris; I10 Essential (primary) hypertension; G47.33 Obstructive sleep apnea (adult) (pediatric); N40.0 Benign prostatic hyperplasia without lower urinary tract symptoms; I25.2 Old myocardial infarction; Z79.4 Long term (current) use of insulin; Z98.1 Arthrodesis status; Z95.5 Presence of coronary angioplasty implant and graft
CPT/HCPCS: 82947-QW; 96365; G0378; J1650; J1815

== ENCOUNTER → 2018-08-09 | Outpatient (CLI) | payer OTHER | LOC: FIMAGING 09:33 | PROVIDERS: ATTEND Orthopaedic Surgery | DX: M75.21 Bicipital tendinitis, right shoulder (principal); M75.92 Shoulder lesion, unspecified, left shoulder; S46.011A Strain of muscle(s) and tendon(s) of the rotator cuff of right shoulder, initial encounter; S46.012A Strain of muscle(s) and tendon(s) of the rotator cuff of left shoulder, initial encounter; M25.811 Other specified joint disorders, right shoulder; M25.812 Other specified joint disorders, left shoulder ==

== ENCOUNTER → 2018-10-25 | Outpatient (CLI) | payer OTHER | LOC: FCPNEURO 21:00 ==